=== PATIENT | female | born 1940 | race Caucasian/White ===

== ENCOUNTER 2023-08-28 19:40 | Outpatient (CLI) | payer MEDICARE, BC, SELFPAY | END 2023-08-28 19:41 | disposition home or self-care (01) | PROVIDERS: PCP Family Medicine; Visit Provider Student in an Organized Health Care Education/Training Program | DX: S79.912A Unspecified injury of left hip, initial encounter (principal); W01.0XXA Fall on same level from slipping, tripping and stumbling without subsequent striking against object, initial encounter; Y92.009 Unspecified place in unspecified non-institutional (private) residence as the place of occurrence of the external cause | CPT/HCPCS: A0425; A0427; A0428 ==

== ENCOUNTER 2023-08-28 20:27 | Emergency (ER) | payer MEDICARE, BC, SELFPAY ==
[2023-08-28] VITALS (16 sets, daily range): BP systolic 142–170; BP diastolic 79–84; PULSE 71–88; RESP 16; TEMP 36.4; O2SAT 88–96; BMI 27.3
--- NOTE | 2023-08-28 20:35 | ED_ITS ---
HPI - General Adult General Chief complaint: Extremity Pain/Injury, Lower Stated complaint: fall Time Seen by Provider: 08/28/23 20:29 History of Present Illness HPI narrative: 83-year-old female coming in today after sustaining a fall. Patient states that she slipped on a puppy pad on her floor and fell sideways onto her left hip. She did not hit her head or lose consciousness. She is complaining of left hip pain. She denies arm, chest or abdominal pain. Denies headache or neck pain. Patient does live independently. Patient did sustain a fall in 2018 that resulted in a clavicular fracture as well as a left hip fracture that was surgically repaired at the time. Past medical history significant for diabetes, coronary artery disease, hyperlipidemia, depression and anxiety, hypertension, hypercalcemia, hypo magnesemia, fibromyalgia. Related Data Home Medications Medication Instructions Recorded Confirmed albuterol sulfate 2.5 mg/3 mL 2.5 mg Q4H PRN wheezing 08/28/23 (0.083 %) solution for nebulization amiloride 5 mg tablet 5 mg PO DAILY 08/28/23 08/28/23 azithromycin 250 mg tablet 250 mg PO DIRECTED 08/28/23 08/28/23 clonazepam 0.5 mg tablet 0.75 mg PO QPM 08/28/23 08/28/23 glipizide 2.5 mg tablet, extended 2.5 mg PO DAILY 08/28/23 08/28/23 release 24 hr levetiracetam 250 mg tablet 750 mg PO BID 08/28/23 08/28/23 metoprolol succinate 100 mg 100 mg PO DAILY 08/28/23 08/28/23 tablet,extended release 24 hr nitroglycerin 0.4 mg sublingual mg sublingual 08/28/23 tablet nystatin 100,000 unit/gram topical topical BID PRN 08/28/23 powder (Nystop) omeprazole 20 mg capsule,delayed 20 mg PO BID 08/28/23 08/28/23 release rosuvastatin 20 mg tablet 20 mg PO QPM 08/28/23 08/28/23 sertraline 50 mg tablet 50 mg PO DAILY 08/28/23 08/28/23 Allergies Allergy/AdvReac Type Severity Reaction Status Date / Time codeine Allergy Intermediate Verified 08/28/23 20:37 Penicillins Allergy Intermediate Verified 08/28/23 20:37 Review of Systems Status of ROS: Reports: 6 or more systems reviewed and unremarkable except as noted in History and below [facility] Social History Non-prescribed substance use: denies use Exam Narrative: Exam Narrative: Well-nourished elderly patient in no acute distress. Alert and oriented x3. Answers questions appropriately. Mood and affect are appropriate. Thoughts are goal oriented and rational. No tangential or magical thinking noted. Patient speaks in full sentences without needing to catch her breath. Patient is very upset that someone is going to tell her that she can live independently anymore. HEENT: Normocephalic atraumatic. Pupils are equally round reactive to light. Extraocular muscles are intact. Conjunctivae are moist without any icterus noted. Moist mucous membranes. Cardiovascular: Heart is regular rate and rhythm S1 and S2 are present without any murmurs. Lungs: Clear to auscultation bilaterally no wheezes rhonchi or rales are appreciated. Patient takes deep breaths without any discomfort. Abdomen: Soft and nontender nondistended with normal bowel sounds. Extremities: Patient has tenderness at the left hip. Leg is shortened and rotated. Skin: Well perfused. Const: Vital Signs, click to edit/add: Vital Signs - 24 hr 08/28/23 20:32 08/28/23 20:39 08/28/23 20:45 Temperature 97.5 F L Pulse Rate 77 72 Pulse Rate [Left P ulse Oximeter] 73 Respiratory Rate 16 Blood Pressure [Ri ght Upper Arm] 142/84 H Pulse Oximetry 93 92 92 Oxygen Delivery Me thod Room Air 08/28/23 21:24 08/28/23 21:30 08/28/23 21:34 Temperature Pulse Rate 74 71 77 Pulse Rate [Left P ulse Oximeter] Respiratory Rate Blood Pressure [Ri ght Upper Arm] Pulse Oximetry 88 96 96 Oxygen Delivery Me thod 08/28/23 21:45 Temperature Pulse Rate 74 Pulse Rate [Left P ulse Oximeter] Respiratory Rate Blood Pressure [Ri ght Upper Arm] Pulse Oximetry 94 Oxygen Delivery Me thod Course Course ED Course: Hip x-ray shows a periprosthetic fracture. Did discuss case with our orthopedic surgeon who felt that the patient would be better served at a tertiary care center. I did speak to Dr. Luis Eduardo, ER physician at [facility] [place] for [place]. Vital Signs Vital signs: Initial Vital Signs Temperature 97.5 F L 08/28/23 20:32 Temperature Source Temporal Artery Scan 08/28/23 20:32 Pulse Rate 73 08/28/23 20:32 Pulse Rhythm Regular 08/28/23 20:32 Respiratory Rate 16 08/28/23 20:32 Blood Pressure 142/84 H 08/28/23 20:32 Blood Pressure Mean 103 08/28/23 20:32 Blood Pressure Position Semi-Fowlers 08/28/23 20:32 Pulse Oximetry 93 08/28/23 20:32 Oxygen Delivery Method Room Air 08/28/23 20:32 Vital Signs Temperature 97.5 F L 08/28/23 20:32 Pulse Rate 73 08/28/23 20:32 Respiratory Rate 16 08/28/23 20:32 Blood Pressure 142/84 H 08/28/23 20:32 Pulse Oximetry 93 08/28/23 20:32 Oxygen Delivery Method Room Air 08/28/23 20:32 Temperature 97.5 F L 08/28/23 20:32 Pulse Rate 74 08/28/23 21:45 Respiratory Rate 16 08/28/23 20:32 Blood Pressure 142/84 H 08/28/23 20:32 Pulse Oximetry 94 08/28/23 21:45 Oxygen Delivery Method Room Air 08/28/23 20:32 Medications Administered Medications: Discontinued Medications Generic Name Dose Route Start Last Admin Trade Name Freq PRN Reason Stop Dose Admin Clonazepam 0.75 mg 08/28/23 21:04 08/28/23 21:33 Clonazepam 0.5 Mg Tablet PO 08/28/23 21:05 0.75 mg ONCE ONE Administration Ondansetron HCl 4 mg 08/28/23 20:54 08/28/23 20:58 Ondansetron 2 Mg/Ml Inj IVP 08/28/23 20:55 4 mg ONCE ONE Administration Medical Decision Making MDM Narrative Medical decision making narrative: 83-year-old female with a periprosthetic hip fracture. Patient will be transferred to [facility] [place]. Medical Records Medical records reviewed: Yes I reviewed the patient's medical records Imaging Data Hip x-ray: Attestation: I have reviewed the pertinent imaging results. Radiologist's impression: Technique: AP pelvis and two views of the left hip Comparison: Hip radiograph dated 03/03/2018 Findings: Left hip arthroplasty noted. There is a periprosthetic fracture extending from the intertrochanteric region to the proximal diaphysis. Femoroacetabular cup alignment appears maintained. Soft tissue swelling. Impression: Left hip periprosthetic fracture. Chest x-ray: Attestation: I have reviewed the pertinent imaging results. Radiologist's impression: Comparison: Chest radiograph dated 01/21/2018 Findings: No gross consolidation. No pneumothorax. No effusion. Cardiac silhouette appears unchanged. No acute osseous abnormality appreciated. Impression: No acute cardiopulmonary process detected. Discharge Plan Discharge Clinical Impression: Bridget-prosthetic fracture around prosthetic hip Patient Disposition: Xfer Other [place] [facility] [place] [facility] [place] Condition: Stable Prescriptions: No Action albuterol sulfate 2.5 mg /3 mL (0.083 %) solution for nebulization 2.5 mg Q4H PRN (Reason: wheezing) azithromycin 250 mg tablet 250 mg PO DIRECTED clonazepam 0.5 mg tablet 0.75 mg PO QPM metoprolol succinate 100 mg tablet extended release 24 hr 100 mg PO DAILY amiloride 5 mg tablet 5 mg PO DAILY levetiracetam 250 mg tablet 750 mg PO BID glipizide 2.5 mg tablet extended release 24hr 2.5 mg PO DAILY nitroglycerin 0.4 mg tablet, sublingual sublingual omeprazole 20 mg capsule,delayed release(DR/EC) 20 mg PO BID nystatin [Nystop] 100,000 unit/gram powder topical BID PRN sertraline 50 mg tablet 50 mg PO DAILY rosuvastatin 20 mg tablet 20 mg PO QPM Follow Up/Referrals: Vikki Cope MD [Primary Care Provider] - [facility] Instructions
--- NOTE | 2023-08-28 20:40 | CRLHL7_ITS ---
For Patients: As a result of the Century Cures Act, medical imaging exams and procedure reports are released immediately into your electronic medical record. You may view this report before your referring provider. If you have questions, please contact your health care provider. Indication: Fall Technique: AP pelvis and two views of the left hip Comparison: Hip radiograph dated 03/03/2018 Findings: Left hip arthroplasty noted. There is a periprosthetic fracture extending from the intertrochanteric region to the proximal diaphysis. Femoroacetabular cup alignment appears maintained. Soft tissue swelling. Impression: Left hip periprosthetic fracture. Dictated by Luis Izquierdo MD @ 08/28/2023 9:57:53 PM (Electronically Signed)
--- NOTE | 2023-08-28 20:47 | CRLHL7_ITS ---
For Patients: As a result of the Century Cures Act, medical imaging exams and procedure reports are released immediately into your electronic medical record. You may view this report before your referring provider. If you have questions, please contact your health care provider. Indication: Fall Technique: Single view of the chest Comparison: Chest radiograph dated 01/21/2018 Findings: No gross consolidation. No pneumothorax. No effusion. Cardiac silhouette appears unchanged. No acute osseous abnormality appreciated. Impression: No acute cardiopulmonary process detected. Dictated by Luis Izquierdo MD @ 08/28/2023 9:56:46 PM (Electronically Signed)
[2023-08-28] MEDS: ONDANSETRON 2 MG/ML inj 4 MG IVP (20:58)
[2023-08-28] MEDS: clonazePAM 0.5 MG TABLET 0.75 MG PO (21:33)
--- NOTE | 2023-08-28 21:43 | ED.NURSE ---
[facility] [place] called for transfer, they have accepted the patient. [facility] called for transfer and they are unable to accept the patient.
--- NOTE | 2023-08-28 22:16 | ED.NURSE ---
[facility] [place] accepted patient in ED. Dispatch called at [phone]. Transport crew should be here within the hour, hour and a half.
--- NOTE | 2023-08-28 22:42 | ED.NURSE ---
Nurse to nurse patient report given to Jaja VÁSQUEZ at [facility] [place]. [phone]
[2023-08-28] MEDS: ACETAMINOPHEN 500 MG TABLET 1000 MG PO (23:20)
--- NOTE | 2023-08-28 23:36 | ED.NURSE ---
patient report given to EMS. Patients brief changed prior to transport.
== END 2023-08-28 23:38 | disposition other institution (70) ==
PROVIDERS: Emergency Provider Family Medicine; PCP Family Medicine
DX: M97.02XA Periprosthetic fracture around internal prosthetic left hip joint, initial encounter (principal)
CPT/HCPCS: 71045; 73502; 96374; 99284; 99285; A9270; J2405

== ENCOUNTER 2023-08-28 23:20 | Outpatient (CLI) | payer MEDICARE, BC, SELFPAY | END 2023-08-28 23:21 | disposition home or self-care (01) | PROVIDERS: PCP Family Medicine; Visit Provider Family Medicine | DX: S72.002S Fracture of unspecified part of neck of left femur, sequela (principal) | CPT/HCPCS: A0425; A0427; A0428 ==

== ENCOUNTER 2023-11-08 12:47 | Outpatient (CLI) | payer MEDICARE, BC, SELFPAY ==
--- NOTE | 2023-11-08 | XR_ITS ---
Patient: ANDREAS GRAYSON Facility:?[facility] Patient ID:?[id number] Site Patient ID:?[id number]. Site :?[id number] Study:?XRay-Hip Left 2 VIEW-11/08/2023 1:43:57 PM Ordering Physician:PETRA Final Report: INDICATION: Left hip fracture. TECHNIQUE: AP pelvis and 2 views of the left hip. FINDINGS: Left hip hemiarthroplasty with cerclage wires along the proximal femoral shaft. Hardware appears intact. Increased callus around the proximal femur fracture since 10/14/2023. No change in alignment. Dictated by Eh Tapia MD @ 11/09/2023 9:42:03 AM Signed by:?Eh Tapia MD @11/09/2023 9:42:03 AM (Electronic Signature)
== END 2023-11-08 12:48 | disposition home or self-care (01) ==
PROVIDERS: PCP Family Medicine; Visit Provider Orthopaedic Surgery
DX: S72.002A Fracture of unspecified part of neck of left femur, initial encounter for closed fracture (principal)
CPT/HCPCS: 73502

== ENCOUNTER 2024-05-14 15:31 | Inpatient (IN) | payer MEDICARE, BC, SELFPAY ==
[2024-05-14] VITALS (38 sets, daily range): BP systolic 79–145; BP diastolic 43–99; PULSE 77–108; RESP 20–22; TEMP 36.8–37.8; O2SAT 83–100; BMI 23.7; BMI 26.2
--- NOTE | 2024-05-14 15:58 | ED_ITS ---
HPI - Nausea/Vomiting/Diarrhea General Time Seen by Provider: 15:58 Date Seen: 05/14/24 Chief complaint: Nausea/Vomiting Stated complaint: vomiting Time Seen by Provider: 05/14/24 15:43 Source: patient and RN notes reviewed Mode of arrival: ambulatory Limitations: no limitations History of Present Illness HPI Narrative: This 83-year-old female is brought in accompanied by family with concern of fever and nausea and vomiting. This 83-year-old female is living in a condo with family members, is transitioning to an assisted living called [facility] in [place]. She was there today doing a virtual mass, had a rule, family received a phone call later that the patient was vomiting at lunch. She went from 99 to a 101 fever which prompted them to bring her in. She maybe had a little stomach discomfort before vomiting but denies any abdominal pain. She got her COVID shot 6 days ago on Wednesday, had a couple days of diarrhea after that but resolved. She got significant bruising in her arm from the COVID shot, had some dependent change going into the outer lateral breast, denies any trauma to the breast. They note she has a dry chronic cough, unchanged. In August she did have a fall and required open reduction internal fixation of her hip. This happened at [facility] and on and it was somewhat of a traumatic experience for her per report. 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 She notes that she had electrolytes done this week in clinic but they have no idea what they are, [place] moved there labs to [facility] and she still has not heard back yet. elicited complaint: nausea and vomiting Related Data Home Medications ?Medication ?Instructions ?Recorded ?Confirmed albuterol sulfate 2.5 mg/3 mL 2.5 mg inhalation Q4H PRN wheezing 08/28/23 05/14/24 (0.083 %) solution for nebulization amiloride 5 mg tablet 5 mg PO DAILY 08/28/23 05/14/24 clonazepam 0.5 mg tablet 0.75 mg PO QPM 08/28/23 05/14/24 glipizide 2.5 mg tablet, extended 2.5 mg PO DAILY 08/28/23 05/14/24 release 24 hr levetiracetam 250 mg tablet 750 mg PO BID 08/28/23 05/14/24 metoprolol succinate 100 mg 100 mg PO DAILY 08/28/23 05/14/24 tablet,extended release 24 hr nitroglycerin 0.4 mg sublingual 0.4 mg sublingual Q5M PRN 08/28/23 05/14/24 tablet nystatin 100,000 unit/gram topical 1 applic topical BID PRN 08/28/23 05/14/24 powder (Nystop) omeprazole 20 mg capsule,delayed 20 mg PO BID 08/28/23 05/14/24 release rosuvastatin 20 mg tablet 20 mg PO QPM 08/28/23 05/14/24 sertraline 150 mg capsule 150 mg PO QDAY 03/15/24 05/14/24 lidocaine 5 % topical patch 1 patch topical DAILY 05/14/24 05/14/24 mirabegron 25 mg tablet,extended 25 mg PO DAILY 05/14/24 05/14/24 release 24 hr (Myrbetriq) Allergies Allergy/AdvReac Type Severity Reaction Status Date / Time codeine Allergy Intermediate Verified 03/15/24 10:59 Penicillins Allergy Intermediate Verified 03/15/24 10:59 Review of Systems Status of ROS: Reports: 6 or more systems reviewed and unremarkable except as noted in History and below [facility] Medical History Muscle weakness ?M62.81 - Muscle weakness (generalized) (ICD-10) Fracture of clavicle ?S42.009A - Fracture of unspecified part of unspecified clavicle, initial encounter for closed fracture (ICD-10) Counseling regarding advanced directives (08/15/16) ?Z71.89 - Other specified counseling (ICD-10) Acute delirium ?R41.0 - Disorientation, unspecified (ICD-10) Acute confusion ?R41.0 - Disorientation, unspecified (ICD-10) Leukocytosis ?D72.829 - Elevated white blood cell count, unspecified (ICD-10) Seizure ?R56.9 - Unspecified convulsions (ICD-10) 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 - Hypomagnesemia (ICD-10) ?E87.6 - Hypokalemia (ICD-10) Hypertension ?I10 - Essential (primary) hypertension (ICD-10) 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 ?I25.810 - Atherosclerosis of coronary artery bypass graft(s) without angina pectoris (ICD-10) Type 2 diabetes mellitus ?E11.9 - Type 2 diabetes mellitus without complications (ICD-10) Closed fracture of left hip (08/29/23) ?S72.002A - Fracture of unspecified part of neck of left femur, initial encounter for closed fracture (ICD-10) Surgical History History of open reduction and internal fixation (ORIF) procedure (08/31/23) ?Z98.890 - Other specified postprocedural states (ICD-10) 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) ?Z96.642 - Presence of left artificial hip joint (ICD-10) Social History Smoking Status: Never smoker Do you use any of these nicotine containing products: None Second hand tobacco smoke exposure: No How often do you have a drink containing alcohol: never How often do you have six or more drinks on one occasion: Never AUDIT-C Alcohol total score: 0 Non-prescribed substance use: denies use Exam Const: Vital Signs, click to edit/add: Vital Signs - 24 hr 05/14/24 15:42 05/14/24 15:54 05/14/24 16:00 Temperature 100.1 F H Pulse Rate 108 H 108 H Pulse Rate [Pulse Oximeter] 103 H Respiratory Rate 20 Blood Pressure Blood Pressure [Ri ght Upper Arm] 145/99 H Pulse Oximetry 90 93 93 Oxygen Delivery Me thod Room Air Nasal Cannula Oxygen Flow Rate 2 05/14/24 16:15 05/14/24 16:30 05/14/24 16:45 Temperature Pulse Rate 108 H 103 H 104 H Pulse Rate [Pulse Oximeter] Respiratory Rate Blood Pressure Blood Pressure [Ri ght Upper Arm] Pulse Oximetry 94 93 95 Oxygen Delivery Me thod Oxygen Flow Rate 05/14/24 17:00 05/14/24 17:15 05/14/24 17:49 Temperature Pulse Rate 103 H 106 H 99 Pulse Rate [Pulse Oximeter] Respiratory Rate Blood Pressure Blood Pressure [Ri ght Upper Arm] Pulse Oximetry 94 94 96 Oxygen Delivery Me thod Oxygen Flow Rate 05/14/24 17:50 05/14/24 18:02 05/14/24 18:17 Temperature Pulse Rate 98 Pulse Rate [Pulse Oximeter] Respiratory Rate Blood Pressure 117/63 117/63 98/58 L Blood Pressure [Ri ght Upper Arm] Pulse Oximetry 96 Oxygen Delivery Me thod Oxygen Flow Rate 05/14/24 18:28 05/14/24 18:30 05/14/24 18:32 Temperature Pulse Rate 108 H 95 102 H Pulse Rate [Pulse Oximeter] Respiratory Rate Blood Pressure 105/55 L Blood Pressure [Ri ght Upper Arm] Pulse Oximetry 94 94 96 Oxygen Delivery Me thod Nasal Cannula Oxygen Flow Rate 2 05/14/24 18:33 05/14/24 18:45 05/14/24 18:47 Temperature Pulse Rate 98 93 94 Pulse Rate [Pulse Oximeter] Respiratory Rate Blood Pressure 87/44 L Blood Pressure [Ri ght Upper Arm] Pulse Oximetry 95 94 94 Oxygen Delivery Me thod Oxygen Flow Rate 05/14/24 18:49 05/14/24 18:51 05/14/24 19:02 Temperature Pulse Rate 95 96 Pulse Rate [Pulse Oximeter] Respiratory Rate Blood Pressure 79/52 L 85/52 L 87/51 L Blood Pressure [Ri ght Upper Arm] Pulse Oximetry 95 95 Oxygen Delivery Me thod Oxygen Flow Rate 05/14/24 19:04 05/14/24 19:15 05/14/24 19:19 Temperature Pulse Rate 95 91 95 Pulse Rate [Pulse Oximeter] Respiratory Rate Blood Pressure Blood Pressure [Ri ght Upper Arm] Pulse Oximetry 83 L 92 94 Oxygen Delivery Me thod Oxygen Flow Rate 05/14/24 19:30 05/14/24 19:40 05/14/24 19:45 Temperature Pulse Rate 96 92 90 Pulse Rate [Pulse Oximeter] Respiratory Rate Blood Pressure 94/44 L Blood Pressure [Ri ght Upper Arm] Pulse Oximetry 93 95 93 Oxygen Delivery Me thod Oxygen Flow Rate 05/14/24 19:47 05/14/24 19:52 05/14/24 19:52 Temperature Pulse Rate 89 86 86 Pulse Rate [Pulse Oximeter] Respiratory Rate Blood Pressure 92/44 L 92/43 L 92/43 L Blood Pressure [Ri ght Upper Arm] Pulse Oximetry 94 92 92 Oxygen Delivery Me thod Oxygen Flow Rate 05/14/24 19:53 05/14/24 20:00 05/14/24 20:02 Temperature Pulse Rate 88 83 85 Pulse Rate [Pulse Oximeter] Respiratory Rate Blood Pressure 92/45 L Blood Pressure [Ri ght Upper Arm] Pulse Oximetry 94 94 93 Oxygen Delivery Me thod Oxygen Flow Rate 05/14/24 20:15 05/14/24 20:17 Temperature Pulse Rate 82 83 Pulse Rate [Pulse Oximeter] Respiratory Rate Blood Pressure 92/47 L Blood Pressure [Ri ght Upper Arm] Pulse Oximetry 93 92 Oxygen Delivery Me thod Oxygen Flow Rate This 83-year-old female is alert, interactive, no apparent distress, seen in exam room 5. Conjugate gaze, sclera clear. Symmetrical facial function. She does not have some of her teeth, oral mucosa looks somewhat dry but lips do not look core drier cracked. Neck is supple, no masses or adenopathy. She has some kyphosis but lungs are clear, no tachypnea, no wheezing or crackles. CV regular rate in rhythm, no murmur, normal S1-S2, no S3-S4. Abdomen is soft, nontender, nondistended, no organomegaly or masses. She has no pretibial edema. She has some resolving yellowish to purplish ecchymosis in the left biceps area, seems to track down along the left anterolateral chest wall and along the left breast. There is no erythema, no significant tenderness. She is mobilizing her arms, does not seem to have any problems with movement in her upper extremities. Documenting provider has reviewed patient's vital signs: yes Course Course ED Course: The bruising in the arm and left chest wall in breast are probably some dependent changes from trauma from her vaccination from COVID. She really does not seem to have any tenderness. The fever with the nausea vomiting certainly seems to be infectious. Viral triple swab is pending. It could be pneumonia, could be gastrointestinal but she has no abdominal pain with this. Do not feel we need to do any abdominal imaging at this time, will await labs. Consider urinary source of infection as well. We will get a portable chest x-ray. May need to do advanced imaging based on laboratory workup. We are still in the shortage blood cultures and thus blood culture was not drawn she is not meeting criteria right now, this needs to be reconsidered with changes in status or if there significant concerns on her workup. Will give her 500 mL normal saline 4 mg IV Zofran for her symptoms. Will also need to check her electrolytes including magnesium given her disorder. Reevaluation(s) Time of Reevaluation #1: 17:07 Reevaluation #1: Have went to review with patient that I have ordered chest CT with abdomen pelv is with IV contrast. Her white count is significantly elevated in with fever I am concerned about the source of her infection. She states she does not want dye done. Her daughter had an allergic reaction and had an NSTEMI during a stress echo. Reviewed with her that that is definity for stress echo. It is a different agent as far as I am aware. This patient also talks about how her of brain cancer in his 40s, had CT scans all the time. She keeps bringing up her experience at [facility], states that she does not want significant interventions. Reviewed with her that I really do recommend this CT imaging with contrast, it gives us much better pictures, I am able to see much better inflammatory change in the abdomen. It is possible that we can do the CT of the chest without just to look for pneumonia and can reimage abdomen and pelvis if we need to, could discuss doing IV contrast with that if we do not have a source. I have asked her to work on getting us urinalysis in the meantime as well. While I was talking to her, her troponin I came back elevated at 0.23, her kidney function is not causative for elevated troponin. Will have nursing staff get an EKG as this was not ordered. Have discussed with patient and her daughter that she is ill, her heart is obviously under strain from current illness, likely illness induced ischemia. She states she does not want si gnificant measures done. She wonders why can just give her an antibiotic. I discussed with her that they are very different antibiotics that treat much different things. Does she have a pneumonia, does she have a urinary tract infection, could this be an intra-abdominal process that might be developing into something surgical? All of these require different antibiotics, which 1 do I give her. I discussed that a need to do further workup to be able to direct antibiotic therapy. If she does not want any of this done, she does not have to, we can work on hospice arrangements for her through her clinic, I cannot initiate that here. She did not seem to want to moved to hospice either. She states she does not want to stay in the hospital, starts talking about the difficulties of the [facility] situation again. Reviewed with her that she is ill, I do not feel that her daughter will be able to care for her and she is likely to get sicker in my opinion. Time of Reevaluation #2: 18:59 Reevaluation #2: Nursing staff notified me that the patient has become hypotensive, was just coming out of another patient room. She is receiving her 2nd 500 mL bolus. Ordered a 2nd it L of normal saline, 2 g of IV cefepime due to penicillin allergy, [address] imaging is in the process of being read, still do not have a focus of infectious etiology. Urine does not look to be the source based on urinalysis. Patient is also develops mild hypoxia during this hospitalization, 88-89% in oxygen was applied. Time of Reevaluation #3: 19:43 Reevaluation #3: Have had extensive discussion with patient and her daughter. She unfortunately has a significant infection with sepsis now. They have had difficulty getting access to get the blood culture, follow-up troponin and lactate. Patient has become hypotensive, she has had her 2 L of fluids ordered, cefepime is ordered due to her penicillin allergy. With cholecystitis diagnosis, need to review further antibiotics. I have reviewed with them that standard of care would be cholecystostomy to until the infection is controlled. We have also reviewed that her troponin is elevated, she is having no chest pain, would go with probable demand ischemia with sepsis. She is not a surgical candidate for us here, no but he will be taking her gallbladder out in this current medical situation. She is adamant that she does not want a cholecystostomy tube. She does not want transfer even if it means the end of her life. She would like to try antibiotics understanding that this is maybe only going to be a temporary improvement. She agrees that if she has worsening overnight and antibiotics are not working, that she will switch to comfort cares. She does not want intubation, she does not want chest compressions. Her daughter has power of contract attorney and is in agreement with this plan. Patient is asking if we can put her in the hospital here, reviewed with her that I certainly will talk to our hospitalist. Consultations Consultation #1: Have contacted our general surgeon on-call Dr. Balbuena. Have reviewed the challenges with this patient, that this patient is likely not going to want transfer. She states that this is unreasonable, if patient wants anything done the standard of care is cholecystostomy tube, get underlying infection under control. She recommends discussing this with the patient and attempting to reason with the patient for transfer, otherwise if patient does not want interventions, really is a terminal or comfort care type picture. Time: 19:16 Consultation #2: Did contact our hospitalist Dr. Valentine. Reviewed patient's request to stay here and not transfer. We went over her labs, the course, her history. Have added in Flagyl for other the anaerobic coverage with her cefepime. I do not know if this patient would entertain pressors, last blood pressure when I was in with her was systolic of 90s so there was some improvement. Nursing staff did finally get a 2nd IV. Her follow-up lactate came back normal, awaiting the troponin I follow-up reading, blood culture did get drawn. Antibiotic should be initiated soon. Patient is 60 kilos, is receiving 2000 mL of fluid plus what she will get with antibiotics. Time: 19:43 Vital Signs Vital signs: Initial Vital Signs Temperature 100.1 F H 05/14/24 15:42 Temperature Source Temporal Artery Scan 05/14/24 15:42 Pulse Rate 103 H 05/14/24 15:42 Pulse Rhythm Regular 05/14/24 15:42 Respiratory Rate 20 05/14/24 15:42 Blood Pressure 145/99 H 05/14/24 15:42 Blood Pressure Mean 114 H 05/14/24 15:42 Blood Pressure Position Sitting 05/14/24 15:42 Pulse Oximetry 90 05/14/24 15:42 Oxygen Delivery Method Room Air 05/14/24 15:42 Vital Signs Temperature 100.1 F H 05/14/24 15:42 Pulse Rate 103 H 05/14/24 15:42 Respiratory Rate 20 05/14/24 15:42 Blood Pressure 145/99 H 05/14/24 15:42 Pulse Oximetry 90 05/14/24 15:42 Oxygen Delivery Method Room Air 05/14/24 15:42 Temperature 98.3 F 05/14/24 20:34 Pulse Rate 83 05/14/24 20:17 Respiratory Rate 20 05/14/24 15:42 Blood Pressure 92/47 L 05/14/24 20:17 Pulse Oximetry 92 05/14/24 20:17 Oxygen Delivery Method Nasal Cannula 05/14/24 18:32 Oxygen Flow Rate 2 05/14/24 18:32 Medications Administered Medications: Discontinued Medications Generic Name Dose Route Start Last Admin Trade Name Melissa PRN Reason Stop Dose Admin Acetaminophen 1,000 mg 05/14/24 16:54 05/14/24 17:51 Acetaminophen 500 Mg Tablet PO 05/14/24 16:55 1,000 mg ONCE ONE Administration Sodium Chloride 500 mls @ 500 mls/hr 05/14/24 16:07 05/14/24 17:33 0.9 % Sodium Chloride 500 Ml IV 05/14/24 17:06 Infused .Q1H ONE Infusion Sodium Chloride 500 mls @ 500 mls/hr 05/14/24 17:27 05/14/24 17:51 0.9 % Sodium Chloride 500 Ml IV 05/14/24 18:26 500 mls/hr .Q1H ONE Administration Sodium Chloride 1,000 mls @ 1,000 mls/hr 05/14/24 18:58 05/14/24 19:56 0.9 % Sodium Chloride 1000 Ml IV 05/14/24 19:57 1,000 mls/hr .Q1H MERLYN Administration Cefepime HCl 2 gm/ Sodium 100 mls @ 200 mls/hr 05/14/24 18:58 05/14/24 19:56 Chloride IVPB 05/14/24 18:59 200 mls/hr ONCE ONE Administration Metronidazole 500 mg in 100 mls @ 100 mls/hr 05/14/24 19:41 05/14/24 20:34 Metronidazole IVPB 05/14/24 20:40 100 mls/hr ONCE ONE Administration Ondansetron HCl 4 mg 05/14/24 16:07 05/14/24 16:31 Ondansetron 2 Mg/Ml Inj IVP 05/14/24 16:08 4 mg ONCE ONE Administration MDM - Nausea/Vomiting/Diarrhea Lab Data Attestation: I reviewed the patient's lab results. Labs: Lab Results 05/14/24 05/14/24 05/14/24 Range/Units 15:40 16: 18:25 WBC 19.61 H (4.50-11.00) K/uL RBC 3.93 L (4.00-5.20) m/uL Hgb 12.4 (12.0-16.0) gm/dL Hct 37.3 (33.0-51.0) % MCV 95 (80-100) fL MCH 32 (26-34) pg MCHC 33 (32-36) gm/dL RDW Coeff of Gilbert 11.9 (11.5-15.5) % Plt Count 206 (140-440) K/uL Neut % (Auto) 92.5 H (42.0-72.0) % Lymph % (Auto) 1.4 L (20-44) % Robeson % (Auto) 5.4 (0.0-11.0) % Eos % (Auto) 0.0 (0.0-7.0) % Baso % (Auto) 0.1 (0.0-3.0) % Neut # (Auto) 18.10 H (1.7-7.0) K/uL Lymph # (Auto) 0.30 L (0.90-2.90) K/uL Robeson # (Auto) 1.10 H (0.00-0.90) K/UL Eos # (Auto) 0.00 (0.00-0.50) K/uL Baso # (Auto) 0.00 (0.00-0.30) K/uL Abs Immat Gran (auto) 0.10 (0.00-0.30) K/uL Imm/Tot Granulo (auto) 0.6 % Sodium 132 L (135-149) mmol/L Potassium 4.3 (3.6-5.1) mmol/L Chloride 98 (96-114) mmol/L Carbon Dioxide 26 (20-32) mmol/L Anion Gap 8 (7-15) mEq/L BUN 19 (7-30) mg/dL Creatinine 0.9 (0.5-1.5) mg/dL Estimated Creat Clear 35.26 Estimated GFR 63 ml/min Glucose 246 H (60-115) mg/dL Lactate 0.9 (0.5-1.9) mmol/L Calcium 10.1 (8.4-10.6) mg/dL Magnesium 1.6 (1.5-2.6) mg/dL Total Bilirubin 0.5 (0.1-1.5) mg/dL AST 28 (12-35) U/L ALT 20 (4-35) U/L Alkaline Phosphatase 76 (40-150) U/L Troponin I 0.23 H* (0.01-0.04) ng/mL C-Reactive Protein 3.0 H (0.5-1.0) mg/dL Total Protein 7.5 (6.0-8.3) g/dL Albumin 4.5 (3.3-5.0) g/dL Lipase 59 (23-300) U/L Procalcitonin 0.83 H (<0.50) ng/mL Urine Color Yellow (Yellow) Urine Appearance Clear (Clear) Urine pH 7.5 (5.0-8.5) Ur Specific Sproul 1.020 (1.000-1.030) Urine Protein 2+ A (Negative) Urine Glucose (UA) Negative (Negative) Urine Ketones 1+ A (Negative) Urine Blood Negative (Negative) Urine Nitrite Negative (Negative) Urine Bilirubin Negative (Negative) Urine Urobilinogen 0.2 (0.2-1.0) Ur Leukocyte Esterase Negative (Negative) Urine RBC 0-2 (0-2) Urine WBC 0-2 (0-5) Ur Squamous Epith Cells None (None-Few) Urine Bacteria None (None) SARS-CoV-2 (PCR) Negative SARS-CoV-2 (Negative) Influenza Type A (PCR) Negative PCR FLU A (Negative) Influenza Type B (PCR) Negative PCR FLU B (Negative) RSV (PCR) Negative PCR RSV (Negative) 05/14/24 Range/Units 19:41 WBC (4.50-11.00) K/uL RBC (4.00-5.20) m/uL Hgb (12.0-16.0) gm/dL Hct (33.0-51.0) % MCV (80-100) fL MCH (26-34) pg MCHC (32-36) gm/dL RDW Coeff of Gilbert (11.5-15.5) % Plt Count (140-440) K/uL Neut % (Auto) (42.0-72.0) % Lymph % (Auto) (20-44) % Robeson % (Auto) (0.0-11.0) % Eos % (Auto) (0.0-7.0) % Baso % (Auto) (0.0-3.0) % Neut # (Auto) (1.7-7.0) K/uL Lymph # (Auto) (0.90-2.90) K/uL Robeson # (Auto) (0.00-0.90) K/UL Eos # (Auto) (0.00-0.50) K/uL Baso # (Auto) (0.00-0.30) K/uL Abs Immat Gran (auto) (0.00-0.30) K/uL Imm/Tot Granulo (auto) % Sodium (135-149) mmol/L Potassium (3.6-5.1) mmol/L Chloride (96-114) mmol/L Carbon Dioxide (20-32) mmol/L Anion Gap (7-15) mEq/L BUN (7-30) mg/dL Creatinine (0.5-1.5) mg/dL Estimated Creat Clear Estimated GFR ml/min Glucose (60-115) mg/dL Lactate 0.8 (0.5-1.9) mmol/L Calcium (8.4-10.6) mg/dL Magnesium (1.5-2.6) mg/dL Total Bilirubin (0.1-1.5) mg/dL AST (12-35) U/L ALT (4-35) U/L Alkaline Phosphatase (40-150) U/L Troponin I 0.48 H* (0.01-0.04) ng/mL C-Reactive Protein (0.5-1.0) mg/dL Total Protein (6.0-8.3) g/dL Albumin (3.3-5.0) g/dL Lipase (23-300) U/L Procalcitonin (<0.50) ng/mL Urine Color (Yellow) Urine Appearance (Clear) Urine pH (5.0-8.5) Ur Specific Sproul (1.000-1.030) Urine Protein (Negative) Urine Glucose (UA) (Negative) Urine Ketones (Negative) Urine Blood (Negative) Urine Nitrite (Negative) Urine Bilirubin (Negative) Urine Urobilinogen (0.2-1.0) Ur Leukocyte Esterase (Negative) Urine RBC (0-2) Urine WBC (0-5) Ur Squamous Epith Cells (None-Few) Urine Bacteria (None) SARS-CoV-2 (PCR) (Negative) Influenza Type A (PCR) (Negative) Influenza Type B (PCR) (Negative) RSV (PCR) (Negative) Imaging Data Chest x-ray: Attestation: I have reviewed the pertinent imaging results. Radiologist's impression: Patient: [facility] Facility:?[facility] Patient ID:?[id number] Site Patient ID:?[id number]. Site :?[id number] Study:?XRay-Chest Portable-05/14/2024 4:28:41 PM Ordering Physician:?Asia Lynch Final Report: Indication: Fever. Technique: Chest 1 view. Comparison: Chest radiographs dated 09/05/2023. Findings/Impression: Cardiovascular and mediastinum: Heart size and vasculature are unchanged in caliber and appearance. Lungs and pleural space: Low lung volumes with diffuse interstitial prominence, which may be artifactual though mild pulmonary edema or infection could have a similar appearance. No sign of pleural effusion. No pneumothorax. Bones and soft tissues: No acute findings. Redemonstrated severe bilateral shoulder arthrosis. Dictated by Glenn Caro MD @ 05/14/2024 5:17:23 PM (Electronic Signature) CT Chest/Ab/Pelvis: Attestation: I have reviewed the pertinent imaging results. Radiologist's impression: Patient: [facility] Facility:?[facility] Patient ID:?[id number] Site Patient ID:?[id number]. Site :?[id number] Study:?CT-Chest/Abd/Pelvis w/ 66cc [id number]/[id number] 5:44:27 PM Ordering Physician:?Asia Lynch Final Report: INDICATION: FEVER, UNKNOWN SOURCE, N/V, ELEVATED WHITE COUNT. TECHNIQUE: CT chest, abdomen and pelvis acquired 66 cc Isovue 370 IV contrast. COMPARISON: CT chest abdomen pelvis dated 11/19/2013. FINDINGS: CHEST: Cardiovascular structures: Heart size is normal. Thoracic aorta and main pulmonary artery are normal in caliber. Mediastinum and nikole: No mass or adenopathy. Lungs and pleura: Respiratory motion artifact limits fine detail evaluation of the pulmonary parenchyma. Unchanged size of the right upper lobe 7 mm pulmonary nodule (2/36). Mild bibasilar subsegmental atelectasis. Lungs are otherwise essentially clear. No pleural Chest wall and axilla: No mass or adenopathy. Bones: No suspicious bone lesions. Redemonstrated sternotomy wires. Unremarkable for age. ABDOMEN AND PELVIS: Liver: Unremarkable. Gallbladder and bile ducts: Cholelithiasis of acute without discrete evidence cholecystitis. There is = mild dilatation of the intrahepatic and extrahepatic biliary ducts, with the distal common bile duct measuring up to 10 mm in diameter. No evident choledocholithiasis. Pancreas: Unremarkable. Spleen: Unremarkable. Adrenal glands: Unremarkable. Kidneys: Subcentimeter cortical hypodensities are too small to characterize. No hydronephrosis. Evaluation of the distal ureters is limited by artifact from left total hip arthroplasty. GI tract: Unremarkable. Vascular structures: Unremarkable. Lymph nodes: Unremarkable. Peritoneum/Retroperitoneum/Abdominal Wall: Unremarkable. No free air or significant free fluid. Pelvic Organs: Unremarkable. Bones and superficial soft tissues: Moderate to severe multilevel degenerative changes in the thoracolumbar spine. No suspicious bone lesions. Partially visualized left total hip arthroplasty. Associated artifact limits evaluation of surrounding structures. IMPRESSION: 1. There is cholelithiasis with mild intrahepatic and extrahepatic biliary ductal dilatation. There is no discretely visualized choledocholithiasis though evaluation relatively limited by CT. 2. Otherwise, no evident acute abnormality in the chest, abdomen, or pelvis. Please note that all CT scans at this facility use dose modulation, iterative reconstruction, and/or weight-based dosing when appropriate to reduce radiation dose to as low as reasonably achievable. Dictated by Glenn Caro MD @ 05/14/2024 7:01:21 PM (Electronic Signature) ECG Data Attestation: I personally reviewed and interpreted this ECG as follows: (Sinus tachycardia with PAC, rate 106. No ischemic change or infarct noted.) ECG interpretation date: 05/14/24 ECG interpretation time: 17:28 Prior ECG tracings: not available for review Discharge Plan Discharge Clinical Impression: Sepsis, Acute hypotension, Acute cholecystitis, Elevated troponin I level, Hypoxia
--- NOTE | 2024-05-14 16:07 | CRLHL7_ITS ---
For Patients: As a result of the Century Cures Act, medical imaging exams and procedure reports are released immediately into your electronic medical record. You may view this report before your referring provider. If you have questions, please contact your health care provider. Indication: Fever. Technique: Chest 1 view. Comparison: Chest radiographs dated 09/05/2023. Findings/Impression: Cardiovascular and mediastinum: Heart size and vasculature are unchanged in caliber and appearance. Lungs and pleural space: Low lung volumes with diffuse interstitial prominence, which may be artifactual though mild pulmonary edema or infection could have a similar appearance. No sign of pleural effusion. No pneumothorax. Bones and soft tissues: No acute findings. Redemonstrated severe bilateral shoulder arthrosis. Dictated by Glenn Caro MD @ 05/14/2024 5:17:23 PM (Electronically Signed)
[2024-05-14 16:22] LABS: PCR FLU A Negative PCR FLU A (Negative); PCR FLU B Negative PCR FLU B (Negative); PCR RSV Negative PCR RSV (Negative); SARS PCR* Negative SARS-CoV-2 (Negative)
[2024-05-14] MEDS: ONDANSETRON 2 MG/ML inj 4 MG IVP (16:31)
[2024-05-14] MEDS: 0.9 % SODIUM CHLORIDE 500 ML 500 ML IV ×2 (16:32→17:51)
[2024-05-14 16:33] LABS: Lactate* 0.9 mmol/L (0.5-1.9)
[2024-05-14 16:34] LABS: Basophils Percent Auto 0.1 % (0.0-3.0); Hematocrit 37.3 % (33.0-51.0); Hemoglobin* 12.4 gm/dL (12.0-16.0); Immature Granulocytes Pct Auto 0.6 %; Lymphocytes Percent Auto 1.4 % (20-44); Mean Corpuscular HGB Conc 33 gm/dL (32-36); Mean Corpuscular Hemoglobin 32 pg (26-34); Mean Corpuscular Volume 95 fL (80-100); Monocytes Percent Auto 5.4 % (0.0-11.0); Neutrophils Percent Auto 92.5 % (42.0-72.0); Platelet Count* 206 K/uL (140-440); RDW Coefficient of Variation % 11.9 % (11.5-15.5); Red Blood Count 3.93 m/uL (4.00-5.20); White Blood Count* 19.61 K/uL (4.50-11.00)
[2024-05-14 16:35] LABS: Slide Review Reflex No
[2024-05-14 16:49] LABS: Albumin* 4.5 g/dL (3.3-5.0); Chloride* 98 mmol/L (96-114)
[2024-05-14 16:50] LABS: Potassium* 4.3 mmol/L (3.6-5.1); Sodium* 132 mmol/L (135-149)
[2024-05-14 16:52] LABS: Bilirubin Total* 0.5 mg/dL (0.1-1.5); Creatinine* 0.9 mg/dL (0.5-1.5); Est. Creatinine Clearance* 35.26; Estimated Glomerular Filt Rate 63 ml/min
[2024-05-14 16:53] LABS: Alanine Aminotransferase* 20 U/L (4-35); Alkaline Phosphatase* 76 U/L (40-150); Anion Gap 8 mEq/L (7-15); Aspartate Amino Transferase* 28 U/L (12-35); Blood Urea Nitrogen* 19 mg/dL (7-30); Calcium* 10.1 mg/dL (8.4-10.6); Carbon Dioxide* 26 mmol/L (20-32); Glucose* 246 mg/dL (60-115); Lipase* 59 U/L (23-300); Magnesium* 1.6 mg/dL (1.5-2.6); Total Protein* 7.5 g/dL (6.0-8.3)
--- NOTE | 2024-05-14 16:55 | CRLHL7_ITS ---
For Patients: As a result of the Century Cures Act, medical imaging exams and procedure reports are released immediately into your electronic medical record. You may view this report before your referring provider. If you have questions, please contact your health care provider. INDICATION: FEVER, UNKNOWN SOURCE, N/V, ELEVATED WHITE COUNT. TECHNIQUE: CT chest, abdomen and pelvis acquired 66 cc Isovue 370 IV contrast. COMPARISON: CT chest abdomen pelvis dated 11/19/2013. FINDINGS: CHEST: Cardiovascular structures: Heart size is normal. Thoracic aorta and main pulmonary artery are normal in caliber. Mediastinum and nikole: No mass or adenopathy. Lungs and pleura: Respiratory motion artifact limits fine detail evaluation of the pulmonary parenchyma. Unchanged size of the right upper lobe 7 mm pulmonary nodule (2/36). Mild bibasilar subsegmental atelectasis. Lungs are otherwise essentially clear. No pleural Chest wall and axilla: No mass or adenopathy. Bones: No suspicious bone lesions. Redemonstrated sternotomy wires. Unremarkable for age. ABDOMEN AND PELVIS: Liver: Unremarkable. Gallbladder and bile ducts: Cholelithiasis of acute without discrete evidence cholecystitis. There is = mild dilatation of the intrahepatic and extrahepatic biliary ducts, with the distal common bile duct measuring up to 10 mm in diameter. No evident choledocholithiasis. Pancreas: Unremarkable. Spleen: Unremarkable. Adrenal glands: Unremarkable. Kidneys: Subcentimeter cortical hypodensities are too small to characterize. No hydronephrosis. Evaluation of the distal ureters is limited by artifact from left total hip arthroplasty. GI tract: Unremarkable. Vascular structures: Unremarkable. Lymph nodes: Unremarkable. Peritoneum/Retroperitoneum/Abdominal Wall: Unremarkable. No free air or significant free fluid. Pelvic Organs: Unremarkable. Bones and superficial soft tissues: Moderate to severe multilevel degenerative changes in the thoracolumbar spine. No suspicious bone lesions. Partially visualized left total hip arthroplasty. Associated artifact limits evaluation of surrounding structures. IMPRESSION: 1. There is cholelithiasis with mild intrahepatic and extrahepatic biliary ductal dilatation. There is no discretely visualized choledocholithiasis though evaluation relatively limited by CT. 2. Otherwise, no evident acute abnormality in the chest, abdomen, or pelvis. Please note that all CT scans at this facility use dose modulation, iterative reconstruction, and/or weight-based dosing when appropriate to reduce radiation dose to as low as reasonably achievable. Dictated by Glenn Caro MD @ 05/14/2024 7:01:21 PM (Electronically Signed)
[2024-05-14 17:10] LABS: Procalcitonin* 0.83 ng/mL (<0.50)
[2024-05-14 17:16] LABS: Troponin I* 0.23 ng/mL (0.01-0.04)
[2024-05-14] MEDS: ACETAMINOPHEN 500 MG TABLET 1000 MG PO (17:51)
[2024-05-14 18:34] LABS: Appearance Urine Clear (Clear); Bilirubin Urine Negative (Negative); Blood Urine Negative (Negative); Color Urine Yellow (Yellow); Glucose Urine Negative (Negative); Ketones Urine 1+ (Negative); Leukocyte Esterase Urine Negative (Negative); Nitrite Urine Negative (Negative); Protein Urine 2+ (Negative); Urobilinogen Urine 0.2 (0.2-1.0); pH Urine 7.5 (5.0-8.5)
[2024-05-14 18:54] LABS: RBC Urine 0-2 (0-2); WBC Urine 0-2 (0-5)
[2024-05-14 19:44] LABS: Lactate* 0.8 mmol/L (0.5-1.9)
[2024-05-14] MEDS: CEFEPIME HCL 2 GM in 0.9 % SODIUM CHLORIDE Mini-bag 100 ML IVPB (19:56)
[2024-05-14] MEDS: 0.9 % SODIUM CHLORIDE 1000 ml 1,000 ML IV (19:56)
[2024-05-14 20:17] LABS: Troponin I* 0.48 ng/mL (0.01-0.04)
[2024-05-14] MEDS: metroNIDAZOLE 500 MG/100 ML PIGGYBACK 100 MG IVPB (20:34)
--- NOTE | 2024-05-14 20:47 | PM.IMHP1 ---
Hospitalist- H&P: HPI History of Present Illness Time Seen by Provider: 20:20 Date Seen: 05/15/24 Chief complaint: vomiting Narrative: Maisha Israel is a 83 year old female with a history of 4 vessel CABG, diabetes mellitus type 2, Gitelman's syndrome, RA was feeling fine earlier today then became suddenly nauseous and had emesis and fever. Her daughter and son-in-law are currently living with her in her town home. This morning she left to go to [facility] in [place], where she will be transitioning to assisted living soon. Her daughter is working on selling the town home. She was fine when she left, but just after mass she was about to eat lunch when she became nauseous and vomited. Her daughter came in got her in found that she had a fever to about 101 ? F. Jennifer denies any pain, abdominal pain, chest pain, or dyspnea. She got a COVID vaccination about 6 days ago and also had labs drawn for a clinic appointment next week. She has significant bruising from the COVID vaccination which has since evolved with gravity into her left anterior chest, breast, and axilla. She did not have any other trauma to the area. This past August she had a fall which resulted in a hip fracture. She had an ORIF at [facility] which she considered a very traumatic experience and is refusing transfer anywhere today based on that experience. When I 1st walked in the room, Jennifer told me very calmly that she might tonight. She demonstrated understanding that she likely has acute cholecystitis and is having a heart attack and is recommended that she get a cholecystostomy tube. She tells me that she does not want to transfer anywhere and does not want anything invasive. She is okay with a PICC line and pressors if needed, but mostly just wants to be kept comfortable. Her daughter and other family members are very concerned and would like her to agree to transfer, but she is adamant that she does not want to go anywhere or have anything invasive done. Review of Systems Status of ROS: Reports: 10 or more systems reviewed and unremarkable except as noted in History and below [facility] Medical History (Updated 05/15/24 @ 00:28 by Bridgette Valentine MD) Periprosthetic fracture around internal prosthetic left hip joint ?M97.02XA - Periprosthetic fracture around internal prosthetic left hip joint, initial encounter (ICD-10) COPD (chronic obstructive pulmonary disease) ?J44.9 - Chronic obstructive pulmonary disease, unspecified (ICD-10) Stage 3a chronic kidney disease ?N18.31 - Chronic kidney disease, stage 3a (ICD-10) Purple toe syndrome of both feet ?I75.023 - Atheroembolism of bilateral lower extremities (ICD-10) Hyperlipidemia ?E78.5 - Hyperlipidemia, unspecified (ICD-10) Hypophosphatemia ?E83.39 - Other disorders of phosphorus metabolism (ICD-10) High calcium levels ?E83.52 - Hypercalcemia (ICD-10) Anxiety state ?F41.1 - Generalized anxiety disorder (ICD-10) Fibromyalgia muscle pain ?M79.7 - Fibromyalgia (ICD-10) Hypomagnesemia ?E83.42 - Hypomagnesemia (ICD-10) Vitamin D deficiency ?E55.9 - Vitamin D deficiency, unspecified (ICD-10) 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 (ICD-10) Degeneration of lumbar or lumbosacral intervertebral disc ?M51.379 - Other intervertebral disc degeneration, lumbosacral region without mention of lumbar back pain or lower extremity pain (ICD-10) Spinal stenosis, lumbar region without neurogenic claudication ?M48.061 - Spinal stenosis, lumbar region without neurogenic claudication (ICD-10) Major depressive disorder ?F32.9 - Major depressive disorder, single episode, unspecified (ICD-10) Rheumatoid arthritis ?M06.9 - Rheumatoid arthritis, unspecified (ICD-10) Myocardial infarction ?I21.9 - Acute myocardial infarction, unspecified (ICD-10) Muscle weakness ?M62.81 - Muscle weakness (generalized) (ICD-10) Fracture of clavicle ?S42.009A - Fracture of unspecified part of unspecified clavicle, initial encounter for closed fracture (ICD-10) Counseling regarding advanced directives (08/15/16) ?Z71.89 - Other specified counseling (ICD-10) Acute delirium ?R41.0 - Disorientation, unspecified (ICD-10) Acute confusion ?R41.0 - Disorientation, unspecified (ICD-10) Leukocytosis ?D72.829 - Elevated white blood cell count, unspecified (ICD-10) Seizure ?R56.9 - Unspecified convulsions (ICD-10) 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 - Hypomagnesemia (ICD-10) ?E87.6 - Hypokalemia (ICD-10) Hypertension ?I10 - Essential (primary) hypertension (ICD-10) 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 ?I25.810 - Atherosclerosis of coronary artery bypass graft(s) without angina pectoris (ICD-10) Type 2 diabetes mellitus ?E11.9 - Type 2 diabetes mellitus without complications (ICD-10) Closed fracture of left hip (08/29/23) ?S72.002A - Fracture of unspecified part of neck of left femur, initial encounter for closed fracture (ICD-10) Surgical History (Updated 05/14/24 @ 22:11 by Bridgette Valentine MD) H/O: hysterectomy (~1985) ?Z90.710 - Acquired absence of both cervix and uterus (ICD-10) S/P CABG x 4 (~2000) ?Z95.1 - Presence of aortocoronary bypass graft (ICD-10) History of open reduction and internal fixation (ORIF) procedure (08/31/23) ?Z98.890 - Other specified postprocedural states (ICD-10) 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) ?Z96.642 - Presence of left artificial hip joint (ICD-10) Family History (Updated 05/14/24 @ 22:12 by Bridgette Valentine MD) Aunt Diabetes Social History (Updated 05/14/24 @ 22:14 by Bridgette Valentine MD) Narrative: Has been living in a town home. Since coming home from rehab of L hip fracture in the spring, her daughter and son-in-law have been staying with her and getting the house ready to sell. They have plans to move her into [facility] in [place] soon. H/o smoking 60 pack years, quit in 2000. Doesn't drink alcohol. DNR/DNI. What is your current living situation?: I presently have a place to live Problems where you live: no known problems Problems where you live details: NA In the past 12 months, utilities in danger of being shut off: no In past 12 months, lack of transportation kept you from medical appts, meetings, work, or getting things needed for daily living: no In the past 12 mos, have been you worried that your food would run out before you had money to buy more?: never true In the past 12 mos, the food you bought just didn't last and you didn't have money to buy more?: never true Highest level of school completed/degree received: high school graduate Smoking Status: Never smoker Do you use any of these nicotine containing products: None Second hand tobacco smoke exposure: No How often do you have a drink containing alcohol: never How often do you have six or more drinks on one occasion: Never AUDIT-C Alcohol total score: 0 Non-prescribed substance use: denies use Caffeine: Yes How often does anyone, including family, friends and others, physically hurt you: never How often does anyone, including family, friends and others, insult or talk down to you: never How often does anyone, including family, friends and others, threaten you with harm: never How often does anyone, including family, friends and others, scream or curse at you: never service: No Meds Home Medications and Allergies Home Medications ?Medication ?Instructions ?Recorded ?Confirmed ?Type albuterol sulfate 2.5 mg/3 mL 2.5 mg inhalation Q4H PRN wheezing 08/28/23 05/14/24 History (0.083 %) solution for nebulization amiloride 5 mg tablet 5 mg PO DAILY 08/28/23 05/14/24 History clonazepam 0.5 mg tablet 0.75 mg PO QPM 08/28/23 05/14/24 History glipizide 2.5 mg tablet, extended 2.5 mg PO DAILY 08/28/23 05/14/24 History release 24 hr levetiracetam 250 mg tablet 750 mg PO BID 08/28/23 05/14/24 History metoprolol succinate 100 mg 100 mg PO DAILY 08/28/23 05/14/24 History tablet,extended release 24 hr nitroglycerin 0.4 mg sublingual 0.4 mg sublingual Q5M PRN 08/28/23 05/14/24 History tablet nystatin 100,000 unit/gram topical 1 applic topical BID PRN 08/28/23 05/14/24 History powder (Nystop) omeprazole 20 mg capsule,delayed 20 mg PO BID 08/28/23 05/14/24 History release rosuvastatin 20 mg tablet 20 mg PO QPM 08/28/23 05/14/24 History sertraline 150 mg capsule 150 mg PO QDAY 03/15/24 05/14/24 History lidocaine 5 % topical patch 1 patch topical DAILY 05/14/24 05/14/24 History mirabegron 25 mg tablet,extended 25 mg PO DAILY 05/14/24 05/14/24 History release 24 hr (Myrbetriq) Allergies Allergy/AdvReac Type Severity Reaction Status Date / Time codeine Allergy Intermediate Verified 03/15/24 10:59 Penicillins Allergy Intermediate Verified 03/15/24 10:59 Exam Narrative: Exam Narrative: General: No acute distress. Awake alert oriented x3. HEENT: Normocephalic atraumatic, pupils equally round and reactive to light and accommodation. Oropharynx clear. Mucous membranes are dry. No cervical lymphadenopathy, thyromegaly or carotid bruits. No JVD. Cardiovascular: Regular rate and rhythm. No murmurs, gallops, or rubs. Chest: No increased work of breathing. Clear to auscultation bilaterally. No crackles or wheezes. Abdomen: Bowel sounds present. Soft, nondistended, mildly tender in the right upper quadrant, no rebound tenderness or guarding, mildly positive Neal sign. No hepatosplenomegaly or masses. Extremities: 1+ bilateral ankle pitting edema, no cyanosis or clubbing. Skin: No jaundice, no pallor, no rashes. Neuro: Grossly intact. No focal deficits. Const: Vital Signs, click to edit/add: Vital Signs - 24 hr 05/14/24 15:42 05/14/24 15:54 05/14/24 16:00 Temperature 100.1 F H Pulse Rate 108 H 108 H Pulse Rate [Pulse Oximeter] 103 H Respiratory Rate 20 Blood Pressure Blood Pressure [Ri ght Upper Arm] 145/99 H Pulse Oximetry 90 93 93 Oxygen Delivery Me thod Room Air Nasal Cannula Oxygen Flow Rate 2 05/14/24 16:15 05/14/24 16:30 05/14/24 16:45 Temperature Pulse Rate 108 H 103 H 104 H Pulse Rate [Pulse Oximeter] Respiratory Rate Blood Pressure Blood Pressure [Ri ght Upper Arm] Pulse Oximetry 94 93 95 Oxygen Delivery Me thod Oxygen Flow Rate 05/14/24 17:00 05/14/24 17:15 05/14/24 17:49 Temperature Pulse Rate 103 H 106 H 99 Pulse Rate [Pulse Oximeter] Respiratory Rate Blood Pressure Blood Pressure [Ri ght Upper Arm] Pulse Oximetry 94 94 96 Oxygen Delivery Me thod Oxygen Flow Rate 05/14/24 17:50 05/14/24 18:02 05/14/24 18:17 Temperature Pulse Rate 98 Pulse Rate [Pulse Oximeter] Respiratory Rate Blood Pressure 117/63 117/63 98/58 L Blood Pressure [Ri ght Upper Arm] Pulse Oximetry 96 Oxygen Delivery Me thod Oxygen Flow Rate 05/14/24 18:28 05/14/24 18:30 05/14/24 18:32 Temperature Pulse Rate 108 H 95 102 H Pulse Rate [Pulse Oximeter] Respiratory Rate Blood Pressure 105/55 L Blood Pressure [Ri ght Upper Arm] Pulse Oximetry 94 94 96 Oxygen Delivery Me thod Nasal Cannula Oxygen Flow Rate 2 05/14/24 18:33 05/14/24 18:45 05/14/24 18:47 Temperature Pulse Rate 98 93 94 Pulse Rate [Pulse Oximeter] Respiratory Rate Blood Pressure 87/44 L Blood Pressure [Ri ght Upper Arm] Pulse Oximetry 95 94 94 Oxygen Delivery Me thod Oxygen Flow Rate 05/14/24 18:49 05/14/24 18:51 05/14/24 19:02 Temperature Pulse Rate 95 96 Pulse Rate [Pulse Oximeter] Respiratory Rate Blood Pressure 79/52 L 85/52 L 87/51 L Blood Pressure [Ri ght Upper Arm] Pulse Oximetry 95 95 Oxygen Delivery Me thod Oxygen Flow Rate 05/14/24 19:04 05/14/24 19:15 05/14/24 19:19 Temperature Pulse Rate 95 91 95 Pulse Rate [Pulse Oximeter] Respiratory Rate Blood Pressure Blood Pressure [Ri ght Upper Arm] Pulse Oximetry 83 L 92 94 Oxygen Delivery Me thod Oxygen Flow Rate 05/14/24 19:30 05/14/24 19:40 05/14/24 19:45 Temperature Pulse Rate 96 92 90 Pulse Rate [Pulse Oximeter] Respiratory Rate Blood Pressure 94/44 L Blood Pressure [Ri ght Upper Arm] Pulse Oximetry 93 95 93 Oxygen Delivery Me thod Oxygen Flow Rate 05/14/24 19:47 05/14/24 19:52 05/14/24 19:52 Temperature Pulse Rate 89 86 86 Pulse Rate [Pulse Oximeter] Respiratory Rate Blood Pressure 92/44 L 92/43 L 92/43 L Blood Pressure [Ri ght Upper Arm] Pulse Oximetry 94 92 92 Oxygen Delivery Me thod Oxygen Flow Rate 05/14/24 19:53 05/14/24 20:00 05/14/24 20:02 Temperature Pulse Rate 88 83 85 Pulse Rate [Pulse Oximeter] Respiratory Rate Blood Pressure 92/45 L Blood Pressure [Ri ght Upper Arm] Pulse Oximetry 94 94 93 Oxygen Delivery Me thod Oxygen Flow Rate 05/14/24 20:15 05/14/24 20:17 05/14/24 20:34 Temperature 98.3 F Pulse Rate 82 83 Pulse Rate [Pulse Oximeter] Respiratory Rate Blood Pressure 92/47 L Blood Pressure [Ri ght Upper Arm] Pulse Oximetry 93 92 Oxygen Delivery Me thod Oxygen Flow Rate Hospitalist - H&P: Result Labs Labs: Short CBC 05/14/24 Range/Units 16:27 WBC 19.61 H (4.50-11.00) K/uL Hgb 12.4 (12.0-16.0) gm/dL Hct 37.3 (33.0-51.0) % Plt Count 206 (140-440) K/uL BMP 05/14/24 16:27 Sodium 132 L Potassium 4.3 Chloride 98 Carbon Dioxide 26 BUN 19 Creatinine 0.9 Glucose 246 H Calcium 10.1 Cardiac Enzymes 05/14/24 05/14/24 Range/Units 16:27 19:41 Troponin I 0.23 H* 0.48 H* (0.01-0.04) ng/mL Liver Function 05/14/24 Range/Units 16:27 Total Bilirubin 0.5 (0.1-1.5) mg/dL AST 28 (12-35) U/L ALT 20 (4-35) U/L Alkaline Phosphatase 76 (40-150) U/L Albumin 4.5 (3.3-5.0) g/dL Urine 05/14/24 Range/Units 18:25 Urine Color Yellow (Yellow) Urine Appearance Clear (Clear) Urine pH 7.5 (5.0-8.5) Ur Specific [place] 1.020 (1.000-1.030) Urine Protein 2+ A (Negative) Urine Glucose (UA) Negative (Negative) EKG: Sinus tachycardia with premature atrial complexes. 106 beats per minute. Otherwise normal EKG. Ordering Physician: Cris Betancourt M.D. Date of Service: 05/14/24 Procedure(s): XR chest 1V portable Accession Number(s): [id number] cc: Vikki Cope M.D.; Cris Betancourt M.D.~ For Patients: As a result of the Cures Act, medical imaging exams and procedure reports are released immediately into your electronic medical record. You may view this report before your referring provider. If you have questions, please contact your health care provider. Indication: Fever. Technique: Chest 1 view. Comparison: Chest radiographs dated 09/05/2023. Findings/Impression: Cardiovascular and mediastinum: Heart size and vasculature are unchanged in caliber and appearance. Lungs and pleural space: Low lung volumes with diffuse interstitial prominence, which may be artifactual though mild pulmonary edema or infection could have a similar appearance. No sign of pleural effusion. No pneumothorax. Bones and soft tissues: No acute findings. Redemonstrated severe bilateral shoulder arthrosis. Dictated by Glenn Caro MD @ 05/14/2024 5:17:23 PM (Electronically Signed) Ordering Physician: Cris Betancourt M.D. Date of Service: 05/14/24 Procedure(s): CT chest abdomen pelv w con Accession Number(s): [id number] cc: Vikki Cope M.D.; Cris Betancourt M.D.~ For Patients: As a result of the Cures Act, medical imaging exams and procedure reports are released immediately into your electronic medical record. You may view this report before your referring provider. If you have questions, please contact your health care provider. INDICATION: FEVER, UNKNOWN SOURCE, N/V, ELEVATED WHITE COUNT. TECHNIQUE: CT chest, abdomen and pelvis acquired 66 cc Isovue 370 IV contrast. COMPARISON: CT chest abdomen pelvis dated 11/19/2013. FINDINGS: CHEST: Cardiovascular structures: Heart size is normal. Thoracic aorta and main pulmonary artery are normal in caliber. Mediastinum and nikole: No mass or adenopathy. Lungs and pleura: Respiratory motion artifact limits fine detail evaluation of the pulmonary parenchyma. Unchanged size of the right upper lobe 7 mm pulmonary nodule (2/36). Mild bibasilar subsegmental atelectasis. Lungs are otherwise essentially clear. No pleural Chest wall and axilla: No mass or adenopathy. Bones: No suspicious bone lesions. Redemonstrated sternotomy wires. Unremarkable for age. ABDOMEN AND PELVIS: Liver: Unremarkable. Gallbladder and bile ducts: Cholelithiasis of acute without discrete evidence cholecystitis. There is = mild dilatation of the intrahepatic and extrahepatic biliary ducts, with the distal common bile duct measuring up to 10 mm in diameter. No evident choledocholithiasis. Pancreas: Unremarkable. Spleen: Unremarkable. Adrenal glands: Unremarkable. Kidneys: Subcentimeter cortical hypodensities are too small to characterize. No hydronephrosis. Evaluation of the distal ureters is limited by artifact from left total hip arthroplasty. GI tract: Unremarkable. Vascular structures: Unremarkable. Lymph nodes: Unremarkable. Peritoneum/Retroperitoneum/Abdominal Wall: Unremarkable. No free air or significant free fluid. Pelvic Organs: Unremarkable. Bones and superficial soft tissues: Moderate to severe multilevel degenerative changes in the thoracolumbar spine. No suspicious bone lesions. Partially visualized left total hip arthroplasty. Associated artifact limits evaluation of surrounding structures. IMPRESSION: 1. There is cholelithiasis with mild intrahepatic and extrahepatic biliary ductal dilatation. There is no discretely visualized choledocholithiasis though evaluation relatively limited by CT. 2. Otherwise, no evident acute abnormality in the chest, abdomen, or pelvis. Please note that all CT scans at this facility use dose modulation, iterative reconstruction, and/or weight-based dosing when appropriate to reduce radiation dose to as low as reasonably achievable. Dictated by Glenn Caro MD @ 05/14/2024 7:01:21 PM (Electronically Signed) Assessment and Plan Assessment and plan (1) Sepsis: Problem comment: - elevated white blood count, her rate greater than 90, respiratory rate 20, map less than 65. Lactate within normal limits. Patient received 2 L of IV fluids in the emergency department and blood pressure and map improved to 102/73. Blood culture was obtained in the emergency department. Patient was started on cefepime and Flagyl for concern of acute cholecystitis. I have ordered these to continue. I have also ordered IV fluid since patient will be NPO. Status: Acute (2) Acute cholecystitis: Problem comment: - IV antibiotics as above. Dr. Clarke from General surgery was contacted through the emergency department and recommended transfer for cholecystostomy tube. Patient is declining transfer for further intervention. Status: Acute (3) Acute hypotension: Problem comment: - improved with IV fluids. Lactate within normal limits. Status: Acute (4) Elevated troponin I level: Problem comment: - has extensive history of coronary artery disease with four-vessel CABG in 2000. She has a history of hypertension and hyperlipidemia. - NSTEMI, suspect demand ischemia: EKG in emergency department is unremarkable. Patient is not having any chest pain or dyspnea. Troponin peaked at 0.48. Obtain echocardiogram. Status: Acute (5) Hypoxia: Problem comment: - treat with supplemental oxygen, especially in the setting of demand ischemia. Status: Acute (6) Hypertension: Problem comment: Hold antihypertensives since patient is having hypotension from sepsis. Status: Chronic (7) Stage 3a chronic kidney disease: Problem comment: - 05/08/2024 creatinine 0.95, baseline creatinine over the last few years is about 1-1.1 - creatinine is 0.9 today. Monitor. Status: Chronic (8) Hyperlipidemia: Problem comment: Continue rosuvastatin. Status: Chronic Plan Low-dose enoxaparin for VTE prophylaxis. Total Time Spent Total Time Spent: Critical care time: 60 minutes including total of 30 minutes discussion with patient and multiple family members, review of labs, diagnostics, notes, [facility] record, reconciling medications.
[2024-05-14] MEDS: 0.9 % SODIUM CHLORIDE 1000 ml 1,000 ML 75 ML IV (22:35)
[2024-05-14 23:11] LABS: Troponin I* 0.43 ng/mL (0.01-0.04)
[2024-05-15] VITALS (15 sets, daily range): BP systolic 93–122; BP diastolic 49–61; PULSE 72–99; RESP 18–22; TEMP 36.8–38.6; O2SAT 89–100
[2024-05-15] MEDS: CEFEPIME HCL 2 GM in 0.9 % SODIUM CHLORIDE Mini-bag 100 ML IVPB ×3 (03:27→19:42)
[2024-05-15] MEDS: metroNIDAZOLE 500 MG/100 ML PIGGYBACK 100 MG IVPB ×3 (04:20→20:24)
[2024-05-15] MEDS: ACETAMINOPHEN 325 MG TABLET 975 MG PO ×2 (04:23→19:50)
--- NOTE | 2024-05-15 06:34 | PC.NURSE ---
End of shift report : Pleasant and cooperative with cares. Alert and oriented x 4. Pain to left shoulder and neck reported, per patient this is chronic pain and is well managed with prn tylenol and positioning. Denies any chest pain, cough or shortness of breath. Admitted with oxygen at 2L per NC, ER staff reporting patient hypoxic while in ED. Meat Curer attempted to wean patient off O2 due to sats 98-100% on 2L. Patient did not tolerate wean, sats dropped to 86% on room air, oxygen reapplied and required increase to 3L due to sats remaining 89% on 2L. Lung sounds clear, diminished in bases. Abdomen soft, tender to palpation in RUQ into epigastric region. At 0400 pt reported feeling chilled, temp 100.4, tylenol administered and effective, temp reduced to 98.9. Bowel sounds active x 4 quadrants, denies any nausea or vomiting. Bruising to LUE, received covid vaccine last week and having extensive bruising that surrounds entire bicep and goes under axilla and onto chest.
[2024-05-15 08:33] LABS: Basophils Percent Auto 0.1 % (0.0-3.0); Hematocrit 28.7 % (33.0-51.0); Hemoglobin* 9.4 gm/dL (12.0-16.0); Immature Granulocytes Pct Auto 0.3 %; Mean Corpuscular HGB Conc 33 gm/dL (32-36); Mean Corpuscular Hemoglobin 32 pg (26-34); Mean Corpuscular Volume 97 fL (80-100); Monocytes Percent Auto 6.6 % (0.0-11.0); Platelet Count* 152 K/uL (140-440); RDW Coefficient of Variation % 12.2 % (11.5-15.5); Red Blood Count 2.96 m/uL (4.00-5.20); White Blood Count* 12.84 K/uL (4.50-11.00)
[2024-05-15 08:35] LABS: Slide Review Reflex No
[2024-05-15 08:47] LABS: Albumin* 3.2 g/dL (3.3-5.0); Chloride* 105 mmol/L (96-114)
[2024-05-15 08:48] LABS: Potassium* 3.9 mmol/L (3.6-5.1); Sodium* 133 mmol/L (135-149)
[2024-05-15 08:50] LABS: Anion Gap 5 mEq/L (7-15); Aspartate Amino Transferase* 21 U/L (12-35); Bilirubin Total* 0.4 mg/dL (0.1-1.5); Carbon Dioxide* 23 mmol/L (20-32); Creatinine* 0.9 mg/dL (0.5-1.5); Est. Creatinine Clearance* 30.62; Estimated Glomerular Filt Rate 63 ml/min; Total Protein* 5.9 g/dL (6.0-8.3)
[2024-05-15 08:51] LABS: Alanine Aminotransferase* 14 U/L (4-35); Alkaline Phosphatase* 49 U/L (40-150); Blood Urea Nitrogen* 21 mg/dL (7-30); Glucose* 123 mg/dL (60-115); Lipase* 37 U/L (23-300)
[2024-05-15 09:08] LABS: Procalcitonin* 1.58 ng/mL (<0.50)
[2024-05-15 09:16] LABS: C Reactive Protein* 16.3 mg/dL (0.5-1.0)
[2024-05-15 09:18] LABS: Troponin I* 0.27 ng/mL (0.01-0.04)
--- NOTE | 2024-05-15 09:18 | NUTR.NU ---
RDN with nutrition screen related to positive skin risk. Patient admitted for sepsis, and acute cholecystitis. Patient is desiring no aggressive cares at this time. Goal of cares to be discussed with patient per MD. Current weight 132lb 6.4oz; height 5ft; BMI 25.9 kg/m2. Limited weight history to assess. MST score normal. Current diet is clear liquids. Not appropriate to visit with patient at this time due to goals of care. No nutrition interventions at this time due to current diet order. RDN will continue to monitor and reassess as indicated.
--- NOTE | 2024-05-15 09:41 | P.IMPN_ITS ---
Progress Note: A&P Assessment and plan (1) Sepsis: Problem details: - WBC of 16, HR >90, T 100.1, MAP <65 on admission - presumed source: gallbladder - Cefepime and Flagyl (05/14) Status: Acute (2) Acute cholecystitis: Problem details: - IV antibiotics as above; General Surgery consulted in ER and recommended transfer for cholecystostomy tube, patient declined - reassuring ultrasound 05/15, continue IV abx, no transfer or aggressive procedures given goals of care Status: Acute (3) Acute hypotension: Problem details: - improved with IV fluids, lactate normal - continue low dose IVFs, current MAP >65 Status: Acute (4) Elevated troponin I level: Problem details: - has extensive history of CAD, s/p 4-vessel CABG in 2000, HTN, hyperlipidemia - NSTEMI, suspect demand ischemia given reassuring EKG - asymptomatic - troponin peak at 0.48 - patient declined TTE or further workup 05/15 Status: Acute (5) Hypoxia: Problem details: - treat with supplemental oxygen, especially in the setting of demand ischemia Status: Acute (6) Hypertension: Problem details: - holding home antihypertensives given hypotension Status: Chronic (7) Stage 3a chronic kidney disease: Problem details: - 05/08/2024 creatinine 0.95, baseline creatinine over the last few years is about 1-1.1 - creatinine is 0.9 today. Monitor. Status: Chronic (8) Anemia: Problem details: - acute anemia (admission 12.4 --> 9.4 on hospital day 1) - presumably related to dilution/acute illness, no evidence of acute bleeding and normal BUN - on BID PPI Status: Acute Plan - per above - daughter updated at bedside x2, questions answered. Patient and daughter aware of tenuous status Subjective Date Seen: 05/15/24 Interval history: Maisha was admitted to the hospital last night for nausea, vomiting, and fever. Imaging in ER concerning for cholelithiasis with mild intrahepatic/extrahepatic biliary ductal dilatation, WBC 19. Patient refused transfer to tertiary care center for cholecystostomy tube, agreeable to IV antibiotics here but no surgical interventions or transfer. This morning, she is feeling better, has no concerns for hospitalist team. Reviewed findings since admission with daughter at bedside; would like to continue IV abx, discontinue telemetry. Defers TTE. Exam Narrative: Exam Narrative: GEN: Alert, laying comfortably in bed HEENT: Poor dentition without acute infection, EOMIs bilaterally, no scleral icterus CV: RRR, No concerning murmurs R: LCTA bilaterally without concerning wheezing Ab: Soft, tolerates palpation, negative Neal's sign Ext: 2+ pitting edema BLE Skin: No jaundice Neuro: No focal deficits or resting tremor Psych: Appropriate Const: Vital Signs, click to edit/add: Vital Signs - 24 hr 05/14/24 15:42 05/14/24 15:54 05/14/24 16:00 Temperature 100.1 F H Pulse Rate 108 H 108 H Pulse Rate [Pulse Oximeter] 103 H Respiratory Rate 20 Blood Pressure Blood Pressure [Le ft Arm] Blood Pressure [Ri ght Arm] Blood Pressure [Ri ght Upper Arm] 145/99 H Pulse Oximetry 90 93 93 Oxygen Delivery Me thod Room Air Nasal Cannula Oxygen Flow Rate 2 05/14/24 16:15 05/14/24 16:30 05/14/24 16:45 Temperature Pulse Rate 108 H 103 H 104 H Pulse Rate [Pulse Oximeter] Respiratory Rate Blood Pressure Blood Pressure [Le ft Arm] Blood Pressure [Ri ght Arm] Blood Pressure [Ri ght Upper Arm] Pulse Oximetry 94 93 95 Oxygen Delivery Me thod Oxygen Flow Rate 05/14/24 17:00 05/14/24 17:15 05/14/24 17:49 Temperature Pulse Rate 103 H 106 H 99 Pulse Rate [Pulse Oximeter] Respiratory Rate Blood Pressure Blood Pressure [Le ft Arm] Blood Pressure [Ri ght Arm] Blood Pressure [Ri ght Upper Arm] Pulse Oximetry 94 94 96 Oxygen Delivery Me thod Oxygen Flow Rate 05/14/24 17:50 05/14/24 18:02 05/14/24 18:17 Temperature Pulse Rate 98 Pulse Rate [Pulse Oximeter] Respiratory Rate Blood Pressure 117/63 117/63 98/58 L Blood Pressure [Le ft Arm] Blood Pressure [Ri ght Arm] Blood Pressure [Ri ght Upper Arm] Pulse Oximetry 96 Oxygen Delivery Me thod Oxygen Flow Rate 05/14/24 18:28 05/14/24 18:30 05/14/24 18:32 Temperature Pulse Rate 108 H 95 102 H Pulse Rate [Pulse Oximeter] Respiratory Rate Blood Pressure 105/55 L Blood Pressure [Le ft Arm] Blood Pressure [Ri ght Arm] Blood Pressure [Ri ght Upper Arm] Pulse Oximetry 94 94 96 Oxygen Delivery Me thod Nasal Cannula Oxygen Flow Rate 2 05/14/24 18:33 05/14/24 18:45 05/14/24 18:47 Temperature Pulse Rate 98 93 94 Pulse Rate [Pulse Oximeter] Respiratory Rate Blood Pressure 87/44 L Blood Pressure [Le ft Arm] Blood Pressure [Ri ght Arm] Blood Pressure [Ri ght Upper Arm] Pulse Oximetry 95 94 94 Oxygen Delivery Me thod Oxygen Flow Rate 05/14/24 18:49 05/14/24 18:51 05/14/24 19:02 Temperature Pulse Rate 95 96 Pulse Rate [Pulse Oximeter] Respiratory Rate Blood Pressure 79/52 L 85/52 L 87/51 L Blood Pressure [Le ft Arm] Blood Pressure [Ri ght Arm] Blood Pressure [Ri ght Upper Arm] Pulse Oximetry 95 95 Oxygen Delivery Me thod Oxygen Flow Rate 05/14/24 19:04 05/14/24 19:15 05/14/24 19:19 Temperature Pulse Rate 95 91 95 Pulse Rate [Pulse Oximeter] Respiratory Rate Blood Pressure Blood Pressure [Le ft Arm] Blood Pressure [Ri ght Arm] Blood Pressure [Ri ght Upper Arm] Pulse Oximetry 83 L 92 94 Oxygen Delivery Me thod Oxygen Flow Rate 05/14/24 19:30 05/14/24 19:40 05/14/24 19:45 Temperature Pulse Rate 96 92 90 Pulse Rate [Pulse Oximeter] Respiratory Rate Blood Pressure 94/44 L Blood Pressure [Le ft Arm] Blood Pressure [Ri ght Arm] Blood Pressure [Ri ght Upper Arm] Pulse Oximetry 93 95 93 Oxygen Delivery Me thod Oxygen Flow Rate 05/14/24 19:47 05/14/24 19:52 05/14/24 19:52 Temperature Pulse Rate 89 86 86 Pulse Rate [Pulse Oximeter] Respiratory Rate Blood Pressure 92/44 L 92/43 L 92/43 L Blood Pressure [Le ft Arm] Blood Pressure [Ri ght Arm] Blood Pressure [Ri ght Upper Arm] Pulse Oximetry 94 92 92 Oxygen Delivery Me thod Oxygen Flow Rate 05/14/24 19:53 05/14/24 20:00 05/14/24 20:02 Temperature Pulse Rate 88 83 85 Pulse Rate [Pulse Oximeter] Respiratory Rate Blood Pressure 92/45 L Blood Pressure [Le ft Arm] Blood Pressure [Ri ght Arm] Blood Pressure [Ri ght Upper Arm] Pulse Oximetry 94 94 93 Oxygen Delivery Me thod Oxygen Flow Rate 05/14/24 20:15 05/14/24 20:17 05/14/24 20:20 Temperature 98.3 F Pulse Rate 82 83 Pulse Rate [Pulse Oximeter] 81 Respiratory Rate 20 Blood Pressure 92/47 L Blood Pressure [Le ft Arm] Blood Pressure [Ri ght Arm] 102/73 Blood Pressure [Ri ght Upper Arm] Pulse Oximetry 93 92 93 Oxygen Delivery Me thod Room Air Oxygen Flow Rate 05/14/24 20:20 05/14/24 20:34 05/14/24 21:42 Temperature 98.3 F Pulse Rate Pulse Rate [Pulse Oximeter] Respiratory Rate 20 Blood Pressure Blood Pressure [Le ft Arm] Blood Pressure [Ri ght Arm] Blood Pressure [Ri ght Upper Arm] Pulse Oximetry 93 93 Oxygen Delivery Me thod Nasal Cannula Oxygen Flow Rate 2 05/14/24 23:00 05/14/24 23:00 05/14/24 23:00 Temperature Pulse Rate 77 Pulse Rate [Pulse Oximeter] 81 Respiratory Rate 20 22 Blood Pressure Blood Pressure [Le ft Arm] Blood Pressure [Ri ght Arm] Blood Pressure [Ri ght Upper Arm] Pulse Oximetry 100 Oxygen Delivery Me thod Nasal Cannula Oxygen Flow Rate 2 05/14/24 23:00 05/15/24 03:00 05/15/24 04:23 Temperature 99.3 F 99.3 F 100.4 F H Pulse Rate Pulse Rate [Pulse Oximeter] 84 84 Respiratory Rate 22 22 Blood Pressure Blood Pressure [Le ft Arm] Blood Pressure [Ri ght Arm] 111/51 L 111/51 L Blood Pressure [Ri ght Upper Arm] Pulse Oximetry 100 100 Oxygen Delivery Me thod Nasal Cannula Nasal Cannula Oxygen Flow Rate 2 2 05/15/24 07:00 05/15/24 08:40 05/15/24 09:00 Temperature 98.2 F Pulse Rate 72 Pulse Rate [Pulse Oximeter] 73 Respiratory Rate 20 Blood Pressure Blood Pressure [Le ft Arm] 103/49 L Blood Pressure [Ri ght Arm] Blood Pressure [Ri ght Upper Arm] Pulse Oximetry 98 95 Oxygen Delivery Me thod Nasal Cannula Oxygen Flow Rate 2 Labs Labs: Laboratory Results - last 24 hr 05/14/24 05/14/24 05/14/24 15:40 16:27 18:25 WBC 19.61 H RBC 3.93 L Hgb 12.4 Hct 37.3 MCV 95 MCH 32 MCHC 33 RDW Coeff of Gilbert 11.9 Plt Count 206 Neut % (Auto) 92.5 H Lymph % (Auto) 1.4 L [place] % (Auto) 5.4 Eos % (Auto) 0.0 Baso % (Auto) 0.1 Neut # (Auto) 18.10 H Lymph # (Auto) 0.30 L [place] # (Auto) 1.10 H Eos # (Auto) 0.00 Baso # (Auto) 0.00 Abs Immat Gran (auto) 0.10 Imm/Tot Granulo (auto) 0.6 Sodium 132 L Potassium 4.3 Chloride 98 Carbon Dioxide 26 Anion Gap 8 BUN 19 Creatinine 0.9 Estimated Creat Clear 35.26 Estimated GFR 63 Glucose 246 H Lactate 0.9 Calcium 10.1 Magnesium 1.6 Total Bilirubin 0.5 AST 28 ALT 20 Alkaline Phosphatase 76 Troponin I 0.23 H* C-Reactive Protein 3.0 H Total Protein 7.5 Albumin 4.5 Lipase 59 Procalcitonin 0.83 H Urine Color Yellow Urine Appearance Clear Urine pH 7.5 Ur Specific [place] 1.020 Urine Protein 2+ A Urine Glucose (UA) Negative Urine Ketones 1+ A Urine Blood Negative Urine Nitrite Negative Urine Bilirubin Negative Urine Urobilinogen 0.2 Ur Leukocyte Esterase Negative Urine RBC 0-2 Urine WBC 0-2 Ur Squamous Epith Cells None Urine Bacteria None SARS-CoV-2 (PCR) Negative SARS-CoV-2 Influenza Type A (PCR) Negative PCR FLU A Influenza Type B (PCR) Negative PCR FLU B RSV (PCR) Negative PCR RSV 05/14/24 05/14/24 05/15/24 19:41 22:31 08:20 WBC 12.84 H RBC 2.96 L Hgb 9.4 L Hct 28.7 L MCV 97 MCH 32 MCHC 33 RDW Coeff of Gilbert 12.2 Plt Count 152 Neut % (Auto) 83.0 H Lymph % (Auto) 10.0 L [place] % (Auto) 6.6 Eos % (Auto) 0.0 Baso % (Auto) 0.1 Neut # (Auto) 10.70 H Lymph # (Auto) 1.30 [place] # (Auto) 0.80 Eos # (Auto) 0.00 Baso # (Auto) 0.00 Abs Immat Gran (auto) 0.00 Imm/Tot Granulo (auto) 0.3 Sodium 133 L Potassium 3.9 Chloride 105 Carbon Dioxide 23 Anion Gap 5 L BUN 21 Creatinine 0.9 Estimated Creat Clear 30.62 Estimated GFR 63 Glucose 123 H Lactate 0.8 Calcium 9.0 Magnesium Total Bilirubin 0.4 AST 21 ALT 14 Alkaline Phosphatase 49 Troponin I 0.48 H* 0.43 H* 0.27 H* C-Reactive Protein 16.3 H Total Protein Albumin Lipase Procalcitonin Urine Color Urine Appearance Urine pH Ur Specific [place] Urine Protein Urine Glucose (UA) Urine Ketones Urine Blood Urine Nitrite Urine Bilirubin Urine Urobilinogen Ur Leukocyte Esterase Urine RBC Urine WBC Ur Squamous Epith Cells Urine Bacteria SARS-CoV-2 (PCR) Influenza Type A (PCR) Influenza Type B (PCR) RSV (PCR) 05/15/24 08:20 WBC RBC Hgb Hct MCV MCH MCHC RDW Coeff of Gilbert Plt Count Neut % (Auto) Lymph % (Auto) [place] % (Auto) Eos % (Auto) Baso % (Auto) Neut # (Auto) Lymph # (Auto) [place] # (Auto) Eos # (Auto) Baso # (Auto) Abs Immat Gran (auto) Imm/Tot Granulo (auto) Sodium Potassium Chloride Carbon Dioxide Anion Gap BUN Creatinine Estimated Creat Clear Estimated GFR Glucose Lactate Calcium Magnesium Total Bilirubin AST ALT Alkaline Phosphatase Troponin I C-Reactive Protein Cancelled Total Protein 5.9 L Albumin 3.2 L Lipase 37 Procalcitonin 1.58 H Urine Color Urine Appearance Urine pH Ur Specific [place] Urine Protein Urine Glucose (UA) Urine Ketones Urine Blood Urine Nitrite Urine Bilirubin Urine Urobilinogen Ur Leukocyte Esterase Urine RBC Urine WBC Ur Squamous Epith Cells Urine Bacteria SARS-CoV-2 (PCR) Influenza Type A (PCR) Influenza Type B (PCR) RSV (PCR)
--- NOTE | 2024-05-15 10:00 | CRLHL7_ITS ---
For Patients: As a result of the Century Cures Act, medical imaging exams and procedure reports are released immediately into your electronic medical record. You may view this report before your referring provider. If you have questions, please contact your health care provider. INDICATION: Reassess ducts COMPARISON: CT 05/14/2024, 11/19/2013 TECHNIQUE: Real time rosas scale imaging and color Doppler analysis was performed of the right upper quadrant. FINDINGS: The liver measures 18.4 cm. No intrahepatic mass. Mild intrahepatic biliary duct dilation. Normal patency of the main portal vein with antegrade flow. No IVC clot. Ectatic aorta. There is no evidence of ascites. The gallbladder is of normal size and there are multiple echogenic stones layering within the gallbladder lumen. The gallbladder wall measures 1.9 mm in thickness. The common bile duct measures 9.3 mm in diameter at the level of the sigrid hepatis. The pancreas appears normal. There is no evidence of a stone or hydronephrosis within the right kidney. The right kidney measures 10.0 cm in length. IMPRESSION: Multiple echogenic stones in the gallbladder consistent with cholelithiasis. The common bile duct measures 9.3 millimeters. Mild intrahepatic biliary duct dilation again noted. Dictated by Chico Fink MD @ 05/15/2024 10:47:09 AM (Electronically Signed)
[2024-05-15] MEDS: levETIRAcetam 500 MG TABLET 750 MG PO ×2 (10:54→20:25)
[2024-05-15] MEDS: SERTRALINE 50 MG TABLET 150 MG PO (10:54)
--- NOTE | 2024-05-15 19:35 | PC.NURSE ---
The patient is A&O, noted to have garbles speech due to no upper teeth. VSS on RA. The patient reports abdominal fullness and pain after eating. Regular diet, no N/V. The patients daughter was here most of the day. IV abx continue. L foot swelling is noted, the patient requested to go back to bed multiple times today after barely being up in the chair. AX1 w/ 4 wheel walker. Incontinent and continent at times. Poor PO fluid intake, although encouraged. Call light within reach. Kayleigh VÁSQUEZ BSN
[2024-05-15] MEDS: ROSUVASTATIN CALCIUM 10 MG TABLET 20 MG PO (19:43)
[2024-05-15] MEDS: ENOXAPARIN 40 MG/0.4 ML INJ SUBCUT (20:25)
[2024-05-15] MEDS: OMEPRAZOLE 20 MG CAPSULE DR PO (20:26)
[2024-05-15] MEDS: clonazePAM 0.5 MG TABLET 0.75 MG PO (20:27)
[2024-05-16 03:00] VITALS: BP 119/70; PULSE 91; RESP 20; TEMP 38.1; O2SAT 95
--- NOTE | 2024-05-16 04:59 | PC.NURSE ---
Shift note: Pt is pleasant, alert and oriented. Continue to desaturate while sleeping and has been on 2L of oxygen throughout the night. Pt had fever of 101.5 at 1900. Tylenol given, rechecked at 1999 was 99.9. informed and asked to continue treatment. Pt has muffled voice. Pt had adequate sleep.
[2024-05-16] MEDS: CEFEPIME HCL 2 GM in 0.9 % SODIUM CHLORIDE Mini-bag 100 ML IVPB ×3 (05:14→19:46)
[2024-05-16] MEDS: metroNIDAZOLE 500 MG/100 ML PIGGYBACK 100 MG IVPB ×3 (05:15→20:28)
[2024-05-16 06:26] LABS: Lactate* < 0.4 mmol/L (0.5-1.9)
[2024-05-16 06:27] LABS: Basophils Absolute Auto 0.03 K/uL (0.00-0.30); Basophils Percent Auto 0.3 % (0.0-3.0); Eosinophils Absolute Auto 0.06 K/uL (0.00-0.50); Eosinophils Percent Auto 0.6 % (0.0-7.0); Hematocrit 30.9 % (33.0-51.0); Immature Granulocytes Abs Auto 0.03 K/uL (0.00-0.30); Immature Granulocytes Pct Auto 0.3 %; Lymphocytes Percent Auto 14.4 % (20-44); Mean Corpuscular HGB Conc 32 gm/dL (32-36); Mean Corpuscular Hemoglobin 32 pg (26-34); Mean Corpuscular Volume 98 fL (80-100); Monocytes Percent Auto 7.1 % (0.0-11.0); Neutrophils Percent Auto 77.3 % (42.0-72.0); Platelet Count* 163 K/uL (140-440); RDW Coefficient of Variation % 12.2 % (11.5-15.5); Red Blood Count 3.16 m/uL (4.00-5.20); White Blood Count* 10.53 K/uL (4.50-11.00)
[2024-05-16 06:28] LABS: Slide Review Reflex No
[2024-05-16 06:52] LABS: Albumin* 3.3 g/dL (3.3-5.0); Chloride* 105 mmol/L (96-114)
[2024-05-16 06:53] LABS: Potassium* 3.7 mmol/L (3.6-5.1); Sodium* 132 mmol/L (135-149)
[2024-05-16 06:55] LABS: Alkaline Phosphatase* 54 U/L (40-150); Anion Gap 7 mEq/L (7-15); Aspartate Amino Transferase* 21 U/L (12-35); Bilirubin Total* 0.4 mg/dL (0.1-1.5); Carbon Dioxide* 20 mmol/L (20-32); Creatinine* 0.9 mg/dL (0.5-1.5); Est. Creatinine Clearance* 30.62; Estimated Glomerular Filt Rate 63 ml/min
[2024-05-16 06:56] LABS: Alanine Aminotransferase* 14 U/L (4-35); Blood Urea Nitrogen* 16 mg/dL (7-30); Calcium* 9.1 mg/dL (8.4-10.6); Glucose* 134 mg/dL (60-115); Lipase* 58 U/L (23-300)
[2024-05-16 07:00] VITALS: BP 124/59; PULSE 84; RESP 20; TEMP 37.2; O2SAT 94
[2024-05-16 07:16] LABS: C Reactive Protein* 13.9 mg/dL (0.5-1.0)
[2024-05-16] MEDS: LACTOBACILLUS ACIDOPHILUS 1 TABLET 1 TAB PO ×3 (08:08→17:35)
[2024-05-16] MEDS: OMEPRAZOLE 20 MG CAPSULE DR PO ×2 (08:08→20:28)
--- NOTE | 2024-05-16 08:48 | PM.IMPN1 ---
Progress Note: A&P Assessment and plan (1) Sepsis: Problem details: - WBC of 16, HR >90, T 100.1, MAP <65 on admission - presumed source: gallbladder, BCx NGTD, UCx pending - Cefepime and Flagyl (05/14) Status: Acute (2) Acute cholecystitis: Problem details: - IV antibiotics as above; General Surgery consulted in ER and recommended transfer for cholecystostomy tube, patient declined - reassuring ultrasound 05/15, continue IV abx, no transfer or aggressive procedures given goals of care Status: Acute (3) Acute hypotension: Problem details: - improved with IV fluids, lactate normal - continue low dose IVFs, current MAP >65 - closer to baseline on hospital day 2 (05/16) Status: Acute (4) Elevated troponin I level: Problem details: - has extensive history of CAD, s/p 4-vessel CABG in 2000, HTN, hyperlipidemia - NSTEMI, suspect demand ischemia given reassuring EKG - asymptomatic - troponin peak at 0.48 - patient declined TTE or further workup 05/15 Status: Acute (5) Hypoxia: Problem details: - treat with supplemental oxygen, especially in the setting of demand ischemia - stable on RA during the day as of 05/16 Status: Acute (6) Hypertension: Problem details: - holding home antihypertensives given hypotension - BP starting to increase 05/16, continue to follow closely, restart medications as tolerated Status: Chronic (7) Anemia: Problem details: - acute anemia (admission 12.4 --> 9.4 on hospital day 1, Hgb of 10 on 05/16) - presumably related to dilution/acute illness, no evidence of acute bleeding and normal BUN - on BID PPI Status: Acute Plan - per above - possibly home in the next 1-2 days pending fever and clinical course - reviewed plan of care with daughter; she would like to take patient home when medically appropriate (they currently have PT and shower aide, SW assisting to evaluate other possible resources, appreciate their input) Subjective Date Seen: 05/16/24 Interval history: Maisha was admitted to the hospital on 05/14 for nausea, vomiting, and fever. Imaging in ER was notable for cholelithiasis with mild intrahepatic/extrahepatic biliary ductal dilatation, WBC 19. Maisha refused transfer to tertiary care center for cholecystostomy tube, agreeable to IV antibiotics here but no surgical interventions or transfer. She also declined TTE and telemetry monitoring. Wearing O2 overnight here but refuses to use at home. No desire for sleep study. Abdominal ultrasound performed 05/15 revealed cholelithiasis and mild intrahepatic biliary ductal dilatation without evidence of cholecystitis. Patient is tolerating p.o. intake (although has mild anorexia), denies abdominal pain. Her white blood count has normalized on Cefepime and Metronidazole, LFTs have been normal throughout stay. Blood culture NGTD, Urine culture pending. Continues to have fevers in the evenings, TMax in the last 24 hours was 100.5 Maisha has no concerns this morning, she admits some surprise at her significant improvement. We discussed discharge planning today with her and daughter. They hope to go home with assistance when Maisha is medically appropriate for d/c. Exam Narrative: Exam Narrative: GEN: Awake and comfortable in chair HEENT: EOMIs bilaterally, no scleral icterus CV: RRR, No concerning murmurs R: LCTA bilaterally Ext: 2+ pitting edema BLE Skin: No jaundice Neuro: No focal deficits Psych: Appropriate Const: Vital Signs, click to edit/add: Vital Signs - 24 hr 05/15/24 09:00 05/15/24 11:00 05/15/24 11:04 Temperature Pulse Rate [Pulse Oximeter] 73 Respiratory Rate 20 Blood Pressure [Ri ght Arm] 93/51 L 103/50 L Pulse Oximetry 95 96 Oxygen Delivery Me thod Nasal Cannula Nasal Cannula Oxygen Flow Rate 2 2 05/15/24 14:50 05/15/24 15:00 05/15/24 18:01 Temperature 99.4 F Pulse Rate [Pulse Oximeter] 73 Respiratory Rate 18 18 20 Blood Pressure [Ri ght Arm] 112/59 L Pulse Oximetry 92 94 94 Oxygen Delivery Me thod Nasal Cannula Room Air Room Air Oxygen Flow Rate 1.5 05/15/24 19:00 05/15/24 19:50 05/15/24 22:00 Temperature 101.5 F H 101.5 F H 99.9 F H Pulse Rate [Pulse Oximeter] 99 94 Respiratory Rate 20 20 Blood Pressure [Ri ght Arm] 122/61 111/56 L Pulse Oximetry 89 90 Oxygen Delivery Me thod Room Air Room Air Oxygen Flow Rate 05/15/24 22:02 05/15/24 23:00 05/15/24 23:00 Temperature 99.9 F H Pulse Rate [Pulse Oximeter] 94 Respiratory Rate 20 20 Blood Pressure [Ri ght Arm] Pulse Oximetry 90 Oxygen Delivery Me thod Room Air Oxygen Flow Rate 2 05/16/24 03:00 05/16/24 07:00 05/16/24 07:00 Temperature 100.5 F H 98.9 F Pulse Rate [Pulse Oximeter] 91 84 Respiratory Rate 20 20 Blood Pressure [Ri ght Arm] 119/70 124/59 L Pulse Oximetry 95 94 94 Oxygen Delivery Me thod Room Air Nasal Cannula Nasal Cannula Oxygen Flow Rate 2 2 2 Labs Labs: Laboratory Results - last 24 hr 05/15/24 05/16/24 05/16/24 08:20 04:00 06:11 WBC 10.53 RBC 3.16 L Hgb 10.0 L Hct 30.9 L MCV 98 MCH 32 MCHC 32 RDW Coeff of Gilbert 12.2 Plt Count 163 Neut % (Auto) 77.3 H Lymph % (Auto) 14.4 L [place] % (Auto) 7.1 Eos % (Auto) 0.6 Baso % (Auto) 0.3 Neut # (Auto) 8.10 H Lymph # (Auto) 1.50 [place] # (Auto) 0.70 Eos # (Auto) 0.06 Baso # (Auto) 0.03 Abs Immat Gran (auto) 0.03 Imm/Tot Granulo (auto) 0.3 Sodium 133 L 132 L Potassium 3.9 3.7 Chloride 105 105 Carbon Dioxide 23 20 Anion Gap 5 L 7 BUN 21 16 Creatinine 0.9 0.9 Estimated Creat Clear 30.62 30.62 Estimated GFR 63 63 Glucose 123 H 134 H Lactate < 0.4 L Calcium 9.0 9.1 Total Bilirubin 0.4 0.4 AST 21 21 ALT 14 14 Alkaline Phosphatase 49 54 Troponin I 0.27 H* C-Reactive Protein 16.3 H 13.9 H Total Protein 5.9 L 6.0 Albumin 3.2 L 3.3 Lipase 37 58 Procalcitonin 1.58 H
[2024-05-16 11:00] VITALS: BP 142/64; PULSE 80; RESP 20; TEMP 37.4; O2SAT 96
[2024-05-16] MEDS: SERTRALINE 100 MG TABLET 150 MG PO (11:29)
[2024-05-16] MEDS: levETIRAcetam 500 MG TABLET 750 MG PO ×2 (11:30→20:28)
--- NOTE | 2024-05-16 13:40 | PC.SOCIAL ---
Addendum entered and electronically signed by SHIRLENE Moya 05/16/24 13:49: Discharge planning: Melodie also stated that if at discharge the pt is going to continue seeing her right away she would need new PT orders faxed to her at #[phone]. Social work to follow-up as needed. Original Note: Discharge planning: cargo station worker spoke to Melodie Duran, Physical Therapist for the pt from [facility], whom stated that she sees the pt at her home and bills the pt's insurance as an outpatient visit. Melodie also said that she checks the pt's blood sugar for her one time a week and is in close communication with the pt's PCP, Dr. Vikki Shea. Melodie said that if the doctor feels there is an overwhelming need for the pt to do home care with PT/OT and nursing, the pt can do that and then transition back to her after the home care is completed. Social work to follow-up as needed.
[2024-05-16 15:00] VITALS: BP 167/81; PULSE 80; PULSE 86; RESP 20; TEMP 37.8; O2SAT 94
[2024-05-16 16:16] VITALS: TEMP 37.8
[2024-05-16] MEDS: ACETAMINOPHEN 325 MG TABLET 975 MG PO (16:16)
[2024-05-16] MEDS: ROSUVASTATIN CALCIUM 10 MG TABLET 20 MG PO (17:35)
--- NOTE | 2024-05-16 18:05 | PC.NURSE ---
End of Shift Note: When I first arrived on shift patient was talking about how she was going to be going to [facility] today. Saw no signs of this happening as her vital signs have been ok today she did have a temp which she received tyl for this. She did complain of some nausea but applied an aromatherapy patch on her for nausea and since then has been able to eat. She did ambulate short distances in her room like around her bed and to the BR today with assist of 1. Will continue to monitor until next shift arrives.
[2024-05-16 19:54] VITALS: BP 125/72; PULSE 81; RESP 18; TEMP 36.4; O2SAT 94
[2024-05-16] MEDS: clonazePAM 0.5 MG TABLET 0.75 MG PO (20:31)
[2024-05-16] MEDS: ENOXAPARIN 40 MG/0.4 ML INJ SUBCUT (20:32)
--- NOTE | 2024-05-16 22:45 | PC.NURSE ---
Pt pleasant and cooperative. No c/o pain. remained afebrile. VSS no other c/o
[2024-05-17] VITALS (10 sets, daily range): BP systolic 123–166; BP diastolic 61–89; PULSE 82–96; RESP 16–20; TEMP 36.6–37.2; O2SAT 91–95
[2024-05-17] MEDS: CEFEPIME HCL 2 GM in 0.9 % SODIUM CHLORIDE Mini-bag 100 ML IVPB ×3 (03:28→19:08)
[2024-05-17] MEDS: ACETAMINOPHEN 325 MG TABLET 975 MG PO (03:32)
[2024-05-17] MEDS: metroNIDAZOLE 500 MG/100 ML PIGGYBACK 100 MG IVPB ×3 (04:24→21:34)
--- NOTE | 2024-05-17 06:28 | PC.NURSE ---
Addendum entered by Eleni Alfaro 05/17/24 07:24: Pt's right anterior forearm IV infiltrated around 0420, IV removed catheter intact, new IV inserted on posterior of right forearm. Original Note: Pt alert and oriented x3. Afebrile. Pt reports 4/10 pain in back, pain managed with PRN Tylenol. Pt denies chest pain, SOB and N/V. Pt is up SBA with walker and gait belt in room, voiding and tolerating a regular diet.?
[2024-05-17 06:44] LABS: Basophils Absolute Auto 0.03 K/uL (0.00-0.30); Basophils Percent Auto 0.4 % (0.0-3.0); Eosinophils Percent Auto 2.4 % (0.0-7.0); Hematocrit 33.2 % (33.0-51.0); Hemoglobin* 10.8 gm/dL (12.0-16.0); Immature Granulocytes Abs Auto 0.02 K/uL (0.00-0.30); Immature Granulocytes Pct Auto 0.2 %; Lymphocytes Percent Auto 15.2 % (20-44); Mean Corpuscular HGB Conc 33 gm/dL (32-36); Mean Corpuscular Hemoglobin 32 pg (26-34); Mean Corpuscular Volume 97 fL (80-100); Neutrophils Percent Auto 74.8 % (42.0-72.0); Platelet Count* 161 K/uL (140-440); Red Blood Count 3.41 m/uL (4.00-5.20); White Blood Count* 8.23 K/uL (4.50-11.00)
[2024-05-17 06:53] LABS: Slide Review Reflex No
[2024-05-17 06:56] LABS: Albumin* 3.4 g/dL (3.3-5.0); Chloride* 105 mmol/L (96-114); Potassium* 3.8 mmol/L (3.6-5.1); Sodium* 132 mmol/L (135-149)
[2024-05-17 06:59] LABS: Alanine Aminotransferase* 13 U/L (4-35); Alkaline Phosphatase* 50 U/L (40-150); Anion Gap 8 mEq/L (7-15); Aspartate Amino Transferase* 23 U/L (12-35); Bilirubin Total* 0.6 mg/dL (0.1-1.5); Blood Urea Nitrogen* 13 mg/dL (7-30); Calcium* 9.3 mg/dL (8.4-10.6); Carbon Dioxide* 19 mmol/L (20-32); Creatinine* 0.8 mg/dL (0.5-1.5); Est. Creatinine Clearance* 30.62; Estimated Glomerular Filt Rate 73 ml/min; Glucose* 139 mg/dL (60-115); Total Protein* 6.1 g/dL (6.0-8.3)
[2024-05-17] MEDS: LACTOBACILLUS ACIDOPHILUS 1 TABLET 1 TAB PO ×3 (08:32→18:02)
[2024-05-17] MEDS: levETIRAcetam 500 MG TABLET 750 MG PO ×2 (08:32→21:08)
[2024-05-17] MEDS: SERTRALINE 100 MG TABLET 150 MG PO (08:32)
[2024-05-17] MEDS: OMEPRAZOLE 20 MG CAPSULE DR PO ×2 (08:32→21:07)
--- NOTE | 2024-05-17 09:44 | PM.IMPN1 ---
Progress Note: A&P Assessment and plan (1) Sepsis: Problem details: - WBC of 16, HR >90, T 100.1, MAP <65 on admission - presumed source: gallbladder, BCx NGTD, UCx pending - Cefepime and Flagyl (05/14) Status: Resolved (2) Acute cholecystitis: Problem details: - IV antibiotics as above; General Surgery consulted in ER and recommended transfer for cholecystostomy tube, patient declined - reassuring ultrasound 05/15, continue IV abx, no transfer or aggressive procedures given goals of care 05/17 - fever 100.1 less than 24 hours ago. Patient and daughter would like to continue IV abx, transitioning to oral when fever free 24 hours Status: Acute (3) Acute hypotension: Problem details: RESOLVED - improved with IV fluids, lactate normal - continue low dose IVFs, current MAP >65 - closer to baseline on hospital day 2 (05/16) 05/17 - acute hypotension resolved, resume home dose Metoprolol Status: Resolved (4) Elevated troponin I level: Problem details: - has extensive history of CAD, s/p 4-vessel CABG in 2000, HTN, hyperlipidemia - NSTEMI, suspect demand ischemia given reassuring EKG - asymptomatic - troponin peak at 0.48 - patient declined TTE or further workup 05/15 Status: Acute (5) Hypoxia: Problem details: RESOLVED - treat with supplemental oxygen, especially in the setting of demand ischemia - stable on RA during the day as of 05/16 Status: Resolved (6) Hypertension: Problem details: - holding home antihypertensives given hypotension - BP starting to increase 05/16, continue to follow closely, restart medications as tolerated - resume Metoprolol 05/17 Status: Chronic (7) Anemia: Problem details: - acute anemia (admission 12.4 --> 9.4 on hospital day 1, Hgb of 10 on 05/16) - presumably related to dilution/acute illness, no evidence of acute bleeding and normal BUN - on BID PPI Status: Acute Plan Patient and daughter would like to continue with antibiotic therapy, transitioning to oral when appropriate. Plan would be to discharge with family back to [facility] (in process of selling but still in their possesion) when fever free 24 hours. Patient would remain in [facility] with family support over the weekend and then move back to [facility] on Wednesday where she receives level 3 of 15 cares. Daughter is able to increase cares as needed. Time Spent With Patient Total time spent: Total time spent caring for the patient today was 45 minutes. This includes time spent for the visit reviewing the chart, time spent during the visit, time spent after the visit and documentation and planning in coordination of care. Subjective Date Seen: 05/17/24 Interval history: Patient is seen today sitting up in a chair, daughter at bedside. Continues to improve. Tolerating orals without nausea vomiting. No abdominal pain. Fever again in the last 24 hours, 101.1? at 4:00 p.m. yesterday. Discussed goals of care. Patient and daughter would like to continue with antibiotic therapy given significant, unexpected improvement. Plan to transition to oral antibiotics which fever free 24 hours. Maisha was admitted to the hospital on 05/14 for nausea, vomiting, and fever. Imaging in ER was notable for cholelithiasis with mild intrahepatic/extrahepatic biliary ductal dilatation, WBC 19. Maisha refused transfer to tertiary care center for cholecystostomy tube, agreeable to IV antibiotics here but no surgical interventions or transfer. She also declined TTE and telemetry monitoring. Wearing O2 overnight here but refuses to use at home. No desire for sleep study. Abdominal ultrasound performed 05/15 revealed cholelithiasis and mild intrahepatic biliary ductal dilatation without evidence of cholecystitis. Her white blood count has normalized on Cefepime and Metronidazole, LFTs have been normal throughout stay. Blood culture NGTD, Urine culture pending. Exam Narrative: Exam Narrative: PHYSICAL EXAM General: Pleasant, conversant, NAD HEENT: Normocephalic, atraumatic, sclera white, EOMI, oral mucosa moist Cardiovascular: RRR, S1S2. No pitting edema Pulmonary: CTA bilaterally without rhonchi, rales, expiratory wheezes. No dyspnea Neurological: Alert, answering questions appropriately, cranial nerves intact, no focal findings Extremities: No gross joint deformity or swelling. AROMI. Neurovascularly intact Skin: Warm, dry. Const: Vital Signs, click to edit/add: Vital Signs - 24 hr 05/16/24 11:00 05/16/24 15:00 05/16/24 15:00 Temperature 99.4 F Pulse Rate [Pulse Oximeter] 80 80 Respiratory Rate 20 20 Blood Pressure [Le ft Arm] Blood Pressure [Ri ght Arm] 142/64 H Pulse Oximetry 96 94 Oxygen Delivery Me thod Room Air Room Air 05/16/24 15:00 05/16/24 16:16 05/16/24 19:54 Temperature 100.1 F H 100.1 F H 97.6 F Pulse Rate [Pulse Oximeter] 86 81 Respiratory Rate 20 18 Blood Pressure [Le ft Arm] 167/81 H Blood Pressure [Ri ght Arm] 125/72 Pulse Oximetry 94 94 Oxygen Delivery Me thod Room Air Room Air 05/17/24 00:14 05/17/24 00:14 05/17/24 00:14 Temperature 98.4 F Pulse Rate [Pulse Oximeter] 88 88 Respiratory Rate 20 20 Blood Pressure [Le ft Arm] Blood Pressure [Ri ght Arm] 166/75 H Pulse Oximetry 94 94 Oxygen Delivery Me thod Room Air Room Air 05/17/24 03:22 05/17/24 07:45 Temperature 98.7 F Pulse Rate [Pulse Oximeter] 96 Respiratory Rate 20 20 Blood Pressure [Le ft Arm] 163/89 H Blood Pressure [Ri ght Arm] Pulse Oximetry 91 Oxygen Delivery Me thod Room Air Labs Labs: Laboratory Results - last 24 hr 05/17/24 06:15 WBC 8.23 RBC 3.41 L Hgb 10.8 L Hct 33.2 MCV 97 MCH 32 MCHC 33 RDW Coeff of Gilbert 12.0 Plt Count 161 Neut % (Auto) 74.8 H Lymph % (Auto) 15.2 L Wilkinson % (Auto) 7.0 Eos % (Auto) 2.4 Baso % (Auto) 0.4 Neut # (Auto) 6.20 Lymph # (Auto) 1.30 Wilkinson # (Auto) 0.60 Eos # (Auto) 0.20 Baso # (Auto) 0.03 Abs Immat Gran (auto) 0.02 Imm/Tot Granulo (auto) 0.2 Sodium 132 L Potassium 3.8 Chloride 105 Carbon Dioxide 19 L Anion Gap 8 BUN 13 Creatinine 0.8 Estimated Creat Clear 30.62 Estimated GFR 73 Glucose 139 H Calcium 9.3 Total Bilirubin 0.6 AST 23 ALT 13 Alkaline Phosphatase 50 Total Protein 6.1 Albumin 3.4
[2024-05-17] MEDS: METOPROLOL SUCCINATE (XL) 100 MG TAB PO (11:33)
--- NOTE | 2024-05-17 12:04 | PC.SOCIAL ---
Discharge planning: steam table worker spoke to pt's daughter, Shonna, today over the phone, as she had left the hospital for a bit and this worker was not able to connect with her earlier when she was at the hospital. Shonna shared that she and her are living at her mother's town home in [place] [facility] right now while they process selling the town home and they plan to bring her mother back to the [facility] home at discharge from the hospital. Shonna and her will be at the [facility] home with her mother 24 hours a day and will take turns with staying with her if one of them needs to leave for a bit for any reason. They also plan to then bring the pt to her Assisted Living apartment at [facility] on Wednesday. The pt has many services set-up at her Assisted Living Facility; including, meals, pt's daughter helps with setting up medications and pt takes them on her own, checks throughout the day from staff for assistance with dressing, etc. and bedtime checks to help the pt with getting ready for bed and tucking her in. Pt's daughter stated that they would like the pt to resume PT at her home with Melodie from [facility], but are open to using a home care agency for PT/OT, intermediate and home health aide before transitioning back to [facility] for PT/cares, if needed/recommended by the doctor. Social work to follow-up as needed.
[2024-05-17] MEDS: ONDANSETRON 2 MG/ML inj 4 MG IVP (12:38)
--- NOTE | 2024-05-17 14:03 | NUTR.NU ---
RDN with MD consult for nutritional consult. Patient admitted with sepsis and acute cholecystitis. RDN attempted to visit with patient multiple times, however patient and designated caregiver not available. RDN will attempt at later date to visit with patient.
[2024-05-17] MEDS: ROSUVASTATIN CALCIUM 10 MG TABLET 20 MG PO (18:02)
--- NOTE | 2024-05-17 19:59 | PC.NURSE ---
Shift 15-19: Pt alert and cooperative. Pt up with assist of one with gait belt and walker. Pt had no complaints of pain. Pt afebrile and VS WNL.
[2024-05-17] MEDS: clonazePAM 0.5 MG TABLET 0.75 MG PO (21:07)
[2024-05-17] MEDS: ENOXAPARIN 40 MG/0.4 ML INJ SUBCUT (21:08)
[2024-05-18] MEDS: CEFEPIME HCL 2 GM in 0.9 % SODIUM CHLORIDE Mini-bag 100 ML IVPB ×2 (02:36→11:32)
[2024-05-18 02:37] VITALS: BP 142/75; PULSE 86; RESP 16; TEMP 36.9; O2SAT 90
--- NOTE | 2024-05-18 04:33 | PC.NURSE ---
Shift note: Pt alert and oriented. Ambulated with SAB to A1. No fever or pain recorded. Pt continue to have muffled voice. Incontinence to urine. Pt had adequate sleep. Vitally stable.
[2024-05-18] MEDS: metroNIDAZOLE 500 MG/100 ML PIGGYBACK 100 MG IVPB ×2 (06:15→12:10)
[2024-05-18 06:41] LABS: Hematocrit 33.6 % (33.0-51.0); Hemoglobin* 11.1 gm/dL (12.0-16.0); Mean Corpuscular HGB Conc 33 gm/dL (32-36); Mean Corpuscular Hemoglobin 32 pg (26-34); Mean Corpuscular Volume 96 fL (80-100); Platelet Count* 205 K/uL (140-440); Red Blood Count 3.52 m/uL (4.00-5.20); White Blood Count* 6.62 K/uL (4.50-11.00)
[2024-05-18 06:47] LABS: Slide Review Reflex No
[2024-05-18 06:59] LABS: Chloride* 104 mmol/L (96-114); Potassium* 3.6 mmol/L (3.6-5.1); Sodium* 133 mmol/L (135-149)
[2024-05-18 07:02] LABS: Anion Gap 6 mEq/L (7-15); Blood Urea Nitrogen* 12 mg/dL (7-30); Carbon Dioxide* 23 mmol/L (20-32); Creatinine* 0.8 mg/dL (0.5-1.5); Est. Creatinine Clearance* 30.62; Estimated Glomerular Filt Rate 73 ml/min; Glucose* 134 mg/dL (60-115)
[2024-05-18 07:03] LABS: Calcium* 9.6 mg/dL (8.4-10.6)
[2024-05-18 08:00] VITALS: O2SAT 94
[2024-05-18] MEDS: LACTOBACILLUS ACIDOPHILUS 1 TABLET 1 TAB PO (08:18)
[2024-05-18] MEDS: OMEPRAZOLE 20 MG CAPSULE DR PO (08:18)
[2024-05-18 08:21] VITALS: BP 143/79; PULSE 88; RESP 20; TEMP 36.6; O2SAT 94
[2024-05-18] MEDS: METOPROLOL SUCCINATE (XL) 100 MG TAB PO (09:43)
[2024-05-18] MEDS: levETIRAcetam 500 MG TABLET 750 MG PO (09:43)
[2024-05-18] MEDS: SERTRALINE 100 MG TABLET 150 MG PO (09:44)
[2024-05-18 11:05] VITALS: BMI 26.2
--- NOTE | 2024-05-18 11:47 | PM.DS1 ---
DS: Providers Provider Date Seen: 05/18/24 Date of admission: 05/14/24 21:01 Primary care physician: Vikki Cope MD Admitting Clinician: Bridgette Valentine MD Consults: 05/15/24 12:51 Consult to Occupational Therapy [CONS] Routine Comment: Reason(s) for OT Consult:: ADLs Prior to Discharge Any Restrictions?:: No Restrictions Consult to Physical Therapy [CONS] Routine Comment: Reason(s) for PT Consult:: Evaluate and Treat Any Restrictions?:: No Restrictions 05/17/24 09:40 Consult to Nutrition [CONS] Routine Comment: Reason for consult:: Nutritional Consult Attending Physician on discharge: GHADA Becerril, [facility] Date of Discharge: 05/18/24 DS: Diagnosis Discharge Diagnosis (1) Sepsis: Status: Resolved Problem details: RESOLVED - WBC of 16, HR >90, T 100.1, MAP <65 on admission - presumed source: gallbladder, BCx NGTD, UCx pending - Cefepime and Flagyl (05/14) (2) Acute cholecystitis: Status: Acute Problem details: - IV antibiotics as above; General Surgery consulted in ER and recommended transfer for cholecystostomy tube, patient declined - reassuring ultrasound 05/15, continue IV abx, no transfer or aggressive procedures given goals of care 05/17 - fever 100.1 less than 24 hours ago. Patient and daughter would like to continue IV abx, transitioning to oral when fever free 24 hours Patient remained fever free, transitioning from IV antibiotics to oral metronidazole and clindamycin. Outpatient follow-up with PCP. Consider General surgery consult if necessary (3) Acute hypotension: Status: Resolved Problem details: RESOLVED - improved with IV fluids, lactate normal - continue low dose IVFs, current MAP >65 - closer to baseline on hospital day 2 (05/16) 05/17 - acute hypotension resolved, resume home dose Metoprolol (4) Elevated troponin I level: Status: Acute Problem details: - has extensive history of CAD, s/p 4-vessel CABG in 2000, HTN, hyperlipidemia - NSTEMI, suspect demand ischemia given reassuring EKG - asymptomatic - troponin peak at 0.48 - patient declined TTE or further workup 05/15 (5) Hypoxia: Status: Resolved Problem details: RESOLVED - treat with supplemental oxygen, especially in the setting of demand ischemia - stable on RA during the day as of 05/16 (6) Hypertension: Status: Chronic Problem details: - holding home antihypertensives given hypotension - BP starting to increase 05/16, continue to follow closely, restart medications as tolerated - resume Metoprolol 05/17 Resume home medications on discharge, blood pressures reply appropriately. (7) Anemia: Status: Acute Problem details: - acute anemia (admission 12.4 --> 9.4 on hospital day 1, Hgb of 10 on 05/16). Improved to 11.1. - presumably related to dilution/acute illness, no evidence of acute bleeding and normal BUN - on BID PPI DS: Summary Hospital Course Hospital Course: [age] year old female was admitted to the medical floor for for management of sepsis. Initiated on IV antibiotics with significant improvement. Sepsis resolved. Transitioned to oral antibiotics at time of discharge. Returning home and then to [facility] with support in place. Course of care and details as noted above. Remainder of chronic medical comorbidities were monitored and managed with home medications. Status at Discharge Overall status at discharge: patient is progressing back to baseline Time Spent with Patient Time attestation: Total time spent providing and/or coordinating discharge services: Time spent: Greater than 30 minutes Exam Narrative: Exam Narrative: PHYSICAL EXAM General: Pleasant, conversant, NAD Cardiovascular: RRR Pulmonary: No dyspnea Neurological: Alert, answering questions appropriately Skin: Warm, dry. Const: Vital Signs, click to edit/add: Vital Signs - 24 hr 05/17/24 13:00 05/17/24 15:08 05/17/24 15:09 Temperature 98 F 98.0 F Pulse Rate [Pulse Oximeter] 87 93 93 Respiratory Rate 20 16 Blood Pressure [Le ft Arm] 149/83 H Blood Pressure [Ri ght Arm] 125/68 Pulse Oximetry 95 91 Oxygen Delivery Me thod Room Air Room Air Oxygen Flow Rate 05/17/24 15:09 05/17/24 19:00 05/17/24 21:38 Temperature 99 F 98.6 F Pulse Rate [Pulse Oximeter] 85 82 Respiratory Rate 16 16 16 Blood Pressure [Le ft Arm] 123/61 Blood Pressure [Ri ght Arm] 137/67 Pulse Oximetry 91 91 91 Oxygen Delivery Me thod Room Air Room Air Room Air Oxygen Flow Rate 0 0 05/17/24 23:00 05/17/24 23:00 05/18/24 02:37 Temperature 98.4 F Pulse Rate [Pulse Oximeter] 82 86 Respiratory Rate 16 16 16 Blood Pressure [Le ft Arm] 142/75 H Blood Pressure [Ri ght Arm] Pulse Oximetry 91 90 Oxygen Delivery Me thod Room Air Room Air Oxygen Flow Rate 05/18/24 08:00 05/18/24 08:21 Temperature 97.9 F Pulse Rate [Pulse Oximeter] 88 Respiratory Rate 20 Blood Pressure [Le ft Arm] 143/79 H Blood Pressure [Ri ght Arm] Pulse Oximetry 94 94 Oxygen Delivery Me thod Room Air Room Air Oxygen Flow Rate DS: Data Data Completed and Pending Labs on day of discharge: Labs from last 24 hours 05/18/24 06:14 WBC 6.62 RBC 3.52 L Hgb 11.1 L Hct 33.6 MCV 96 MCH 32 MCHC 33 Plt Count 205 Sodium 133 L Potassium 3.6 Chloride 104 Carbon Dioxide 23 Anion Gap 6 L BUN 12 Creatinine 0.8 Estimated Creat Clear 30.62 Estimated GFR 73 Glucose 134 H Calcium 9.6 Preliminary micro results at discharge 05/14/24 19:41 Blood Culture - Preliminary Blood NO GROWTH AFTER 72 HOURS Imaging Abdominal ultrasound: Attestation: I have reviewed the pertinent imaging results. Radiologist's impression: The liver measures 18.4 cm. No intrahepatic mass. Mild intrahepatic biliary duct dilation. Normal patency of the main portal vein with antegrade flow. No IVC clot. Ectatic aorta. There is no evidence of ascites. The gallbladder is of normal size and there are multiple echogenic stones layering within the gallbladder lumen. The gallbladder wall measures 1.9 mm in thickness. The common bile duct measures 9.3 mm in diameter at the level of the sigrid hepatis. The pancreas appears normal. There is no evidence of a stone or hydronephrosis within the right kidney. The right kidney measures 10.0 cm in length. IMPRESSION: Multiple echogenic stones in the gallbladder consistent with cholelithiasis. The common bile duct measures 9.3 millimeters. Mild intrahepatic biliary duct dilation again noted. CT Chest/Ab/Pelvis: Attestation: I have reviewed the pertinent imaging results. Radiologist's impression: Cardiovascular structures: Heart size is normal. Thoracic aorta and main pulmonary artery are normal in caliber. Mediastinum and nikole: No mass or adenopathy. Lungs and pleura: Respiratory motion artifact limits fine detail evaluation of the pulmonary parenchyma. Unchanged size of the right upper lobe 7 mm pulmonary nodule (2/36). Mild bibasilar subsegmental atelectasis. Lungs are otherwise essentially clear. No pleural Chest wall and axilla: No mass or adenopathy. Bones: No suspicious bone lesions. Redemonstrated sternotomy wires. Unremarkable for age. ABDOMEN AND PELVIS: Liver: Unremarkable. Gallbladder and bile ducts: Cholelithiasis of acute without discrete evidence cholecystitis. There is = mild dilatation of the intrahepatic and extrahepatic biliary ducts, with the distal common bile duct measuring up to 10 mm in diameter. No evident choledocholithiasis. Pancreas: Unremarkable. Spleen: Unremarkable. Adrenal glands: Unremarkable. Kidneys: Subcentimeter cortical hypodensities are too small to characterize. No hydronephrosis. Evaluation of the distal ureters is limited by artifact from left total hip arthroplasty. GI tract: Unremarkable. Vascular structures: Unremarkable. Lymph nodes: Unremarkable. Peritoneum/Retroperitoneum/Abdominal Wall: Unremarkable. No free air or significant free fluid. Pelvic Organs: Unremarkable. Bones and superficial soft tissues: Moderate to severe multilevel degenerative changes in the thoracolumbar spine. No suspicious bone lesions. Partially visualized left total hip arthroplasty. Associated artifact limits evaluation of surrounding structures. IMPRESSION: 1. There is cholelithiasis with mild intrahepatic and extrahepatic biliary ductal dilatation. There is no discretely visualized choledocholithiasis though evaluation relatively limited by CT. 2. Otherwise, no evident acute abnormality in the chest, abdomen, or pelvis. Discharge Plan Discharge Disposition: Home, Self-Care Date of Admission: 05/14/24 21:01 Attending Provider on Discharge: Sada Ernst Discharge Medications: New ciprofloxacin HCl 250 mg tablet 250 mg PO BID Qty: 4 0RF metronidazole 500 mg tablet 500 mg PO TID Qty: 6 0RF Continued lidocaine 5 % adhesive patch,medicated 1 patch topical DAILY mirabegron [Myrbetriq] 25 mg tablet extended release 24 hr 25 mg PO DAILY sertraline 100 mg tablet 150 mg PO DAILY albuterol sulfate 2.5 mg /3 mL (0.083 %) solution for nebulization 2.5 mg inhalation Q4H PRN (Reason: wheezing) clonazepam 0.5 mg tablet 0.75 mg PO HS metoprolol succinate 100 mg tablet extended release 24 hr 100 mg PO DAILY amiloride 5 mg tablet 5 mg PO DAILY levetiracetam 250 mg tablet 750 mg PO BID glipizide 2.5 mg tablet extended release 24hr 2.5 mg PO DAILY nitroglycerin 0.4 mg tablet, sublingual 0.4 mg sublingual Q5M PRN omeprazole 20 mg capsule,delayed release(DR/EC) 20 mg PO BID nystatin [Nystop] 100,000 unit/gram powder 1 applic topical BID PRN rosuvastatin 20 mg tablet 20 mg PO QPM Discharge Orders: Discharge Order (Routine); Ordered 05/18/24 Ordered By: Sada Ernst Patient Education: Ciprofloxacin (By mouth), Metronidazole (By mouth), Cholecystitis (GEN) Activity Level: Activity as Tolerated Activity Detail: RESUME PT, INCREASING TO ACUTE STATUS FOR CURRENT NEEDS. Discharge Diet: Other Diet Detail: Recommendations per Nutrition Follow Up Appointments: Vikki Cope MD [Primary Care Provider] - (PCP unavailable during desired time frame) BAL FINE DO [Referring] - 05/22/24 8:05 am ([facility] for follow up appointment. PCP was unavailable during desired time frame) Forms: [employer] Info Instructions
--- NOTE | 2024-05-18 15:22 | PC.NURSE ---
shift note nurse to nurse given to Trisha T due to assignment change
--- NOTE | 2024-05-18 16:18 | PC.SOCIAL ---
Discharge planning: bilingual patient support caseworker faxed new outpatient physical therapy orders to Melodie Garzon at [facility] fax #[phone]. Pt will be discharging home today with her daughter and son-in-law with outpatient physical therapy visits from Melodie to start back up with increased frequency in physical therapy appointments. Social work to follow-up as needed.
== END 2024-05-18 14:56 | disposition home or self-care (01) | DRG 871 ==
LOC: ED 16:13 → MEDSURG 20:18
PROVIDERS: Family Medicine; Physician Assistant; Admitting Provider Family Medicine; Emergency Provider Family Medicine; PCP Family Medicine; Visit Provider Family Medicine
DX: A41.9 Sepsis, unspecified organism (principal); I21.A1 Myocardial infarction type 2; K80.00 Calculus of gallbladder with acute cholecystitis without obstruction; I25.810 Atherosclerosis of coronary artery bypass graft(s) without angina pectoris; R09.02 Hypoxemia; N28.89 Other specified disorders of kidney and ureter; I95.9 Hypotension, unspecified; I12.9 Hypertensive chronic kidney disease with stage 1 through stage 4 chronic kidney disease, or unspecified chronic kidney disease; E11.22 Type 2 diabetes mellitus with diabetic chronic kidney disease; N18.31 Chronic kidney disease, stage 3a; J44.9 Chronic obstructive pulmonary disease, unspecified; F32.9 Major depressive disorder, single episode, unspecified; M06.9 Rheumatoid arthritis, unspecified; Z95.1 Presence of aortocoronary bypass graft; D64.89 Other specified anemias; E78.5 Hyperlipidemia, unspecified
CPT/HCPCS: 36415; 71045; 71260; 74177; 76705; 80048; 80053; 81001; 82962; 83605; 83690; 83735; 84145; 84484; 85025; 85027; 86140; 87040; 87086; 87631; 93005; 94761; 97110; 97116; 97162; 97166; 97530; 97535; 99285; A9270; J0692; J1650; J1836; J2405; J7030; Q9967

== ENCOUNTER 2024-09-12 04:44 | Inpatient (IN) | payer MEDICARE, SELFPAY ==
[2024-09-12] VITALS (38 sets, daily range): BP systolic 90–114; BP diastolic 50–74; PULSE 78–118; RESP 5–32; TEMP 36.4–38.5; O2SAT 77–97; BMI 23.0; BMI 21.9
--- OUTSIDE RECORDS SUMMARY | 2024-09-12 04:46 | XMS_ITS | Clinical Summary ---
Author Organization [employer] [facility] Address [address] [place] [address] Care Team Providers Care Cosmetic Consultant Name Role Phone Vikki Cope MD Primary Care Provide r Allergies Active Allergy Reactions Criticality Noted Date Comments Codeine Confusion,Other - De scribe In Comment Field High 09/12/2007 Penicillins Rash High 05/09/2009 Medications Diabetic Supplies, Miscellan.Indicat ions:Type II or unspecified type diabetes mellitus without mention of complication, not stated as uncontrolled by Injection route. Dispense glucose meter, test strips and lancets covered by patient insurance. Test 2 times per day. 1 Kit PRN 08/13/19 10 Active ONE TOUCH ULTRA TEST strip USE TO TEST TWICE DAILY DIRECTED 200 Strip 2 08/28/19 12 Active blood-glucose meter (BLOOD GLUCOSE MONITOR KIT) Dispense glucose meter, test strips and lancets covered by the patient insurance. Test 2 times per day. 250.00 1 Device 0 06/29/20 13 Active blood-glucose meter (ONE TOUCH ULTRA 2)Indications:Typ e II or unspecified type diabetes mellitus without mention of complication, not stated as uncontrolled Dispense glucose meter, test strips and lancets. Test 1 times per day. One Touch brand as patient had before. 1 Device 0 10/14/19 14 Active acetaminophen (TYLENOL EXTRA STRGTH) 500 mg tablet Take 2 tablets by mouth 3 times daily. Max acetaminophen dose: 4000mg in 24 hrs. 0 05/24/20 18 Active miscellaneous medical supply miscIndications:H ypertension, unspecified type As directed 1 Each. Automatic arm cuff for blood pressure 1 Each 08/11/19 19 Active cholecalciferol (VITAMIN D) 1,000 unit capsule Take one tablet three times a week. 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 270 tablet 3 01/25/20 20 Active aspirin 325 mg tabletIndications :CAD in [place] artery Take 1 Tablet (325 mg) by mouth once daily with a meal. 0 12/11/19 21 Active blood-glucose meterIndications: Diabetes mellitus without complication (HC) Dispense meter, test strips, lancets covered by pt ins. E11.9 NIDDM type II - Test 1 time/day, Freestyle Brand please 1 Device 12/25/19 21 Active ascorbic acid, vitamin C, (Vitamin C) 500 mg tablet Take 500 mg by mouth two times daily. 0 06/24/20 21 Active glucos sul 0XHe-mzs-nsyvm-C- [place] (Glucosamine Chondroitin) 550-30-1 mg cap Take 2 Tablets by mouth once daily. 0 10/01/19 22 Active lutein-zeaxanthin -bilberry ext 20-1-2.2 mg cap Take 1 Tablet by mouth once daily. 0 10/01/19 22 Active Walker - 4 wheelsIndications :Rheumatoid arthritis with negative rheumatoid factor, involving unspecified site (HC) Walker with 4 wheels and a seat and brakes. For home use. Length of need: 99 mos 1 Each 05/05/20 22 Active Magnesium Glycinate 100 mg tabIndications:Hy pomagnesemia Patient takes six 400 mg tablets daily 270 Tablet 11/06/19 23 Active NebulizerIndicati ons:Chronic obstructive pulmonary disease, unspecified COPD type (HC) Nebulizer, disposable neb kit x 4, reuseable neb kit x 1, mask x 1, filters x 1. Frequency of use: daily; Medication: albuterol nebs, 2.5 mg every 4 hours if needed Length of need: 99 months 1 Each 02/05/20 23 Active lidocaine 5 % topical patch Apply 1 Patch on dry, clean, hairless skin once daily. Active nystatin powder (Nystop) powderIndications :Intertrigo Apply topically to affected area(s) three times daily. 180 g 5 10/21/19 24 Active fexofenadine (Aarti Allergy) 60 mg tablet Take 60 mg by mouth once daily in the morning. Active wheelchairIndicat ions:S/p left hip fracture,Decrease d independence with activities of daily living,Periprosth etic fracture around internal prosthetic left hip joint, sequela Wheelchair: power wheelchair: (Swing away Length of need: 99 months 1 Each 12/30/19 24 Active metoprolol succinate (TOPROL XL) 100 mg Sustained-Release tabletIndications :Essential hypertension Take 1 Tablet (100 mg) by mouth once daily. 90 Tablet 3 03/02/20 24 Active glipiZIDE extended-release (GLUCOTROL XL) 2.5 mg Extended-Release tabletIndications :Type 2 diabetes mellitus without complication, without long-term current use of insulin (HC) Take 1 Tablet (2.5 mg) by mouth once daily before a meal. 90 Tablet 3 03/02/20 24 Active omeprazole (PRILOSEC) 20 mg Delayed-Release capsuleIndication s:Chronic GERD Take 1 Capsule (20 mg) by mouth two times daily before meals. 180 Capsule 3 03/02/20 24 Active nitroglycerin (Nitrostat) 0.4 mg sublingual tabletIndications :Chest pain in adult DISSOLVE 1TABLET UNDER THE TONGUE NEEDED FOR CHEST PAIN; MAY REPEAT EVERY 5 MINUTES IF NEEDED 25 Tablet 5 03/02/20 24 Active aMILoride (MIDAMOR) 5 mg tabletIndications :Diabetes mellitus without complication (HC) Take 1 Tablet (5 mg) by mouth once daily. 90 Tablet 3 07/13/20 24 Active rosuvastatin (CRESTOR) 20 mg tabletIndications :Hyperlipidemia, unspecified hyperlipidemia type Take 1 Tablet (20 mg) by mouth at bedtime. 90 Tablet 3 07/13/20 24 Active clonazePAM (KLONOPIN) 0.5 mg tabletIndications :Chorea TAKE 1 AND 1/2 TABLETS BY MOUTH AT BEDTIME 135 Tablet 1 07/19/19 25 Active mirabegron EXTENDED-release (Myrbetriq) 25 mg tabletIndications :Mixed stress and urge urinary incontinence Take 1 Tablet (25 mg) by mouth once daily. 90 Tablet 3 07/24/19 25 Active levETIRAcetam (KEPPRA) 250 mg tabletIndications :[place] Take 3 Tablets (750 mg) by mouth two times daily. 540 Tablet 3 09/05/19 25 Active ferrous gluconate 324 mg (37 mg iron) tabletIndications :Anemia of unknown etiology Take 09/05/19 25 Active hydrocortisone 2.5 % creamIndications: Rash Apply topically to affected area(s) 2 times daily if needed for Itching. 60 g 09/05/19 25 Active sertraline (ZOLOFT) 100 mg tabletIndications :Major depressive disorder, recurrent episode, moderate (HC) Take 1 Tablet (100 mg) by mouth once daily in the morning. 09/05/19 25 Active loperamide (IMODIUM) 2 mg tabletIndications :Acute diarrhea Take 1 tablet 3-5 times per day, 09/05/19 25 Active loperamide (IMODIUM A-D) 2 mg tabletIndications :Acute diarrhea Take 4mg by mouth with 1st loose stool, then 2mg with each subsequent loose stool. Max 16 mg in 24 hrs 48 tablet 1 04/25/20 19 025 Discontin ued(Reord er (E-cancel not sent)) calcium carbonate (CALTRATE) 600 mg calcium (1,500 mg) tablet Take 600 mg by mouth once daily. 10/21/19 24 025 Discontin ued(*Med complete/ Regimen complete/ Level of care change) levETIRAcetam (KEPPRA) 250 mg tabletIndications :Chorea TAKE 3 TABLETS BY MOUTH TWICE DAILY 540 Tablet 3 12/26/19 24 025 Discontin ued(Reord er (E-cancel not sent)) sertraline (ZOLOFT) 50 mg tabletIndications :Major depressive disorder, recurrent episode, moderate (HC) Take 1 Tablet (50 mg) by mouth once daily. Take 1 tablet by mouth once daily in addition to one 100 mg tablet once daily for total dose of 150 mg. 90 Tablet 3 03/02/20 24 025 Discontin ued(*Med complete/ Regimen complete/ Level of care change) sertraline (ZOLOFT) 100 mg tabletIndications :Major depressive disorder, recurrent episode, moderate (HC) Take 1 Tablet (100 mg) by mouth once daily in the morning. In addition to 50 mg tablet for total dose to equal 150 mg 90 Tablet 3 03/02/20 24 025 Discontin ued(Reord er (E-cancel not sent)) ferrous gluconate 324 mg (37 mg iron) tabletIndications :Anemia of unknown etiology Take Wednesday, Wed and Wednesday05/23/20 24 025 Discontin ued(Reord er (E-cancel not sent)) clonazePAM (KLONOPIN) 0.5 mg tabletIndications :Ch[place] TAKE 1 AND 1/2 TABLETS BY MOUTH AT BEDTIME 135 Tablet 1 07/19/19 25 025 Discontin ued(*Med complete/ Regimen complete/ Level of care change) Active Problems Problem Noted Date Diagnosed Date Periprosthetic fracture arou nd internal prosthetic left hip joint 12/29/2023 Chronic obstructive pulmonar y disease, unspecified COPD type 08/24/2023 Stage 3a chronic kidney disease 11/05/2022 Purple toe syndrome of both feet 09/30/2021 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 Onychomycosis 10/06/2016 Hyperlipidemia 02/25/2016 High calcium levels 11/29/2013 Hypophosphatemia 11/29/2013 Fibromyalgia muscle pain 08/05/2012 Vitamin D deficiency 07/11/2009 Hypomagnesemia 07/11/2009 Hypertension 06/05/2009 Chorea 05/30/2009 Spinal stenosis, lumbar kevin on, without neurogenic claudication 05/17/2009 Degeneration of lumbar or lumbosacral interverte bral disc 05/17/2009 Anxiety state, unspecified 01/25/2009 Major depressive disorder, recurrent episode, mo derate 02/01/2008 Acute myocardial infarction of other specified sites, subsequent episode of care 10/01/2006 Rheumatoid arthritis(714.0) 10/01/2006 Type II or unspecified type diabetes mellitus without mention of complication, not stated as uncontrolled 12/15/2005 Resolved Problems Problem Noted Date Diagnosed Date Resolved Date Serum calcium elevated 06/25/200905/13 Drug-induced dystonia 05/09/20092008 Dyskinesia, acute 05/09/2009 05/30/2009 Other and unspecified hyperlipidemia 10/01/2006 02/25/2016 Headache(784.0) 10/01/2006 05/13/2011 Encounters Date Type Department Care Team Description 09/05/2024 11:30 AM BATTERY ASSEMBLER PLASTIC Office Visit [facility] [address] [place] [address] [phone] Vikki Cope MD Follow Up (Weight, B/P and blood sugars/Daughter concerned about side effects of medications or C-diff from antibiotics in the past/Has a rash); Serious Illness Conversation 09/05/2024 Travel 09/04/2024 Telephone [facility] [address] [place] [address] Vikki Cope MD Weight 09/01/2024 Nurse Triage [facility] [address] [place] [address] Vikki Cope MD Appointment Request 07/18/2024 Refill [facility] [address] [place] [address] Vikki Cope MD Refill Request (KLONOPIN) 07/13/2024 12:35 PM BATTERY ASSEMBLER PLASTIC Office Visit [facility] [address] [place] [address] Vikki Cope MD Lab (Blood work ); Follow Up (Cholecystitis); Medication Management 07/13/2024 Travel from Last 3 Months Immunizations Name Administration Dates Next Due COVID-19 vaccine (Pfizer-Bio NTech 30mcg/0.3mL) 12YO+ BIVALENT PF, MDV 05/05/2022 COVID-19 vaccine (Pfizer-Bio NTech 30mcg/0.3mL) 12YO+ SARAH-SUCROSE PF, MDV 12/04/2021 COVID-19 vaccine (Pfizer-Bio NTech 30mcg/0.3mL) PF, MDV 06/20/2021,11/26/2020,11/05/2020 Influenza, IIV4 08/06/2023,06/24/2022,05/13/2021 Td (Age >=7 Years) 05/20/2022 Family History Medical History Relation Name Comments Diabetes Maternal Aunt Relation Name Status Comments Maternal Aunt Social History Tobacco Use Types Packs/Day Years Used Date Smoking Tobacco: Former Cigarettes 2 30 0 07/19/1970 - 07/19/2000 Smokeless Tobacco: Former Quit: 07/19/2000 Tobacco Cessation:Counseling Given: Yes Comments:prior 1 ppd for 30-40 years quit 2000 Alcohol Use Standard Drinks/Week Comments No 0 (1 standard drink = 0.6 oz pur e alcohol) PHQ-2 Answer Date Recorded PHQ-2 TOTAL SCORE 6 03/02/2024 Social Connections Answer Date Recorded Do you often feel lonely or isolated from those around you? 0 03/02/2024 Financial Resource Strain Answer Date R ecorded Difficulty of Paying Living Expenses 3 03/02/2024 Difficulty of Paying Living Expenses Not on file 03/02/2024 Food Insecurity Answer Date Recorded Do you worry your food will run out before you are able to buy more? 1 03/02/2024 Transportation Needs Answer Date Record ed Does lack of transportation keep you from medica l appointments? 1 03/02/2024 Does lack of transportation keep you from work, meetings or getting things that you need? 1 03/02/2024 Housing Stability Answer Date Recorded What is your housing situation today? 1 03/02/2024 Utilities Answer Date Recorded Do you have trouble paying f or utilities (for example, heat, electricity, water, phone)? 1 03/02/2024 Comments No Sex and Gender Information Value Date Recorded Sex Assigned at Not on file Legal Sex Female 6:24 AM BATTERY ASSEMBLER [employer]IC Gender Identity Not on file Sexual Orientation Not on file Obstetrics History Last Filed Vital Signs Vital Sign Reading Time Taken Comments Blood Pressure 109/64 09/05/2024 12:05 PM BATTERY ASSEMBLER PLASTIC Pulse 80 09/05/2024 12:05 PM BATTERY ASSEMBLER PLASTIC Temperature 37 C (98.6 F) 05/23/2024 10:41 AM BATTERY ASSEMBLER PLASTIC Respiratory Rate 18 08/01/2019 10:4 2 AM BATTERY ASSEMBLER PLASTIC Oxygen Saturation 94% 09/05/2024 12: 05 PM BATTERY ASSEMBLER PLASTIC Inhaled Oxygen Concentration - - Weight 53.9 kg (118 lb 12.8 oz) 025 12:05 PM BATTERY ASSEMBLER PLASTIC Height 149.9 cm (4' 11) 03/02/2024 10: 44 AM CDT Body Mass Index 23.99 03/02/2024 10:44 AM CDT Plan of Treatment Upcoming Encounters Date Type Department Care Team (Late st Contact Info) Description 10/10/2024 2:15 PM CDT Office Visit [facility] [address] [place] [address] Vikki Cope MD [address] [place] [address] Health Maintenance Due Date Last Done Comments Tdap 1951 Pneumococcal series for age 50+ (1 of 2 - PCV) 1959 Zoster (shingles) series for age 50+ (1 of 2) 1990 RSV vaccine for adults or (1 - 1-dose 75+ series) 2015 Influenza for age 65+ 03/19/2024 08/06/2023 , 06/24/2022, 05/13/2021 BMI (ht and wt on same day) for age 18+ 03/02/2025 03/02/2024, 11/05/2022, 05/13/2021, Additional history exists Depression screening for age 12+ 03/02/2025 03/02/2024, 11/05/2022, 11/03/2022, Additional history exists Medicare Wellness for age 65+ 02/15/2026 Postponed from 2005 (Patient discretion) Tetanus booster 05/20/2032 05/20/2022, 11/17 (Postponed) DEXA/DXA scan for age 65+ Addressed 12/05/2010 (Dec lined) Overridden with the intention of not completing the topic COVID-19 vaccine series Completed 05/08/20, 05/05/2022, 12/04/2021, Additional history exists Procedures Procedure Name Priority Date/Time Associated Diagnosis Comments MAGNESIUM Routine 07/13/2024 2:15 PM BATTERY ASSEMBLER PLASTIC Gitelman disease BASIC METABOLIC PANEL Routine 07/13/2024 2:15 PM BATTERY ASSEMBLER PLASTIC Gitelman disease TSH WITH REFLEX Routine 07/13/2024 2:15 PM BATTERY ASSEMBLER PLASTIC Chronic diarrhea Nutritional anemia, unspecified VITAMIN D 25 (DEFICIENCY) Routine 07/13/2024 2:15 PM BATTERY ASSEMBLER PLASTIC Vitamin D deficiency CBC WITH AUTO DIFFERENTIAL Routine 07/13/2024 2:15 PM BATTERY ASSEMBLER PLASTIC Nutritional anemia, unspecified VITAMIN B12 Routine 07/13/2024 2:15 PM BATTERY ASSEMBLER PLASTIC Nutritional anemia, unspecified PHOSPHORUS Routine 07/13/2024 2:15 PM BATTERY ASSEMBLER PLASTIC Gitelman disease FERRITIN Routine 07/13/2024 2:15 PM BATTERY ASSEMBLER PLASTIC Nutritional anemia, unspecified from Last 3 Months Results * TSH WITH REFLEX (07/13/2024 2:15 PM BATTERY ASSEMBLER PLASTIC) TSH W/REFLEX TO FT4 1.69 0.40 - 4.50 mIU/L [facility] Blood BLOOD SPECIMEN / Unknown 07/13/2024 2:15 PM BATTERY ASSEMBLER PLASTIC 07/13/2024 2:15 PM BATTERY ASSEMBLER PLASTIC Vikki Cope MD CHEMISTRY Final Result Performing Organization Address City/State/[facility] Co de Phone Number [facility] [address] [place] [address], [facility] [address] [place] [address] * (ABNORMAL) VITAMIN D 25 (DEFICIENCY) (07/13/2024 2:15 PM BATTERY ASSEMBLER PLASTIC) VITAMIN D,25-OH,TOTAL,IA 23(L) 30 - 100 ng/mL [facility] Comment: Vitamin D Status 25-OH Vitamin D: Deficiency: <20 ng/mL Insufficiency: 20 - 29 ng/mL Optimal: > or = 30 ng/mL For 25-OH Vitamin D testing on patients on D2-supplementation and patients for whom quantitation of D2 and D3 fractions is required, the [facility]() 25-OH VIT D, (D2,D3), LC/MS/MS is recommended: order code 67572 (patients >2yrs). See Note 1 Note 1 For additional information, please refer to http://education.Cohuman.Lucidity (MemberRx)/faq/IEI064 (This link is being provided for informational/ educational purposes only.) Blood BLOOD SPECIMEN / Unknown 07/13/2024 2:15 PM BATTERY ASSEMBLER PLASTIC 07/13/2024 2:15 PM BATTERY ASSEMBLER PLASTIC Vikki Cope MD SEND OUTS Final Result [employer] [facility] [address] [place] [address], [facility] [address] [place] [address] * CBC AND DIFFERENTIAL (07/13/2024 2:15 PM BATTERY ASSEMBLER PLASTIC) Pathologist [facility] WHITE BLOOD CELL COUNT 7.4 3.8 - 10.8 Thousand/u L [facility] RED BLOOD CELL COUNT 3.99 3.80 - 5.10 Million/uL [facility] HEMOGLOBIN 12.7 11.7 - 15.5 g/dL [facility] HEMATOCRIT 38.8 35.0 - 45.0 % [facility] MCV 97.2 80.0 - 100.0 fL [facility] MCH 31.8 27.0 - 33.0 pg [facility] MCHC 32.7 32.0 - 36.0 g/dL [facility] Comment: For adults, a slight decrease in the calculated MCHC value (in the range of 30 to 32 g/dL) is most likely not clinically significant; however, it should be interpreted with caution in correlation with other red cell parameters and the patient's clinical condition. RDW 12.7 11.0 - 15.0 % [facility] PLATELET COUNT 247 140 - 400 Thousand/u L [facility] MPV 10.6 7.5 - 12.5 fL [facility] ABSOLUTE NEUTROPHILS 4,951 1,500 - 7,800 cells/uL [facility] ABSOLUTE LYMPHOCYTES 1,613 850 - 3,900 cells/uL [facility] ABSOLUTE MONOCYTES 533 200 - 950 cells/uL [facility] ABSOLUTE EOSINOPHILS 252 15 - 500 cells/uL [facility] ABSOLUTE BASOPHILS 52 0 - 200 cells/uL [facility] NEUTROPHILS 66.9 % [facility] LYMPHOCYTES 21.8 % [facility] MONOCYTES 7.2 % [facility] EOSINOPHILS 3.4 % [facility] BASOPHILS 0.7 % [facility] Blood BLOOD SPECIMEN / Unknown 07/13/2024 2:15 PM BATTERY ASSEMBLER PLASTIC 07/13/2024 2:15 PM BATTERY ASSEMBLER PLASTIC Vikki Cope MD HEMATOLOGY Final Result [facility] [address] [place] [address], [place] [phone] [facility] [address] [place] [address] * PHOSPHORUS (07/13/2024 2:15 PM BATTERY ASSEMBLER PLASTIC) PHOSPHATE ( PHOSPHORUS) 3.2 2.1 - 4.3 mg/dL [facility] Blood BLOOD SPECIMEN / Unknown 07/13/2024 2:15 PM BATTERY ASSEMBLER PLASTIC 07/13/2024 2:15 PM BATTERY ASSEMBLER PLASTIC Vikki Cope MD CHEMISTRY Final Result [employer] [facility] [address] [place] [address], [facility] [address] [place] [address] * MAGNESIUM (07/13/2024 2:15 PM BATTERY ASSEMBLER PLASTIC) MAGNESIUM 1.8 1.5 - 2.5 mg/dL [facility] Blood BLOOD SPECIMEN / Unknown 07/13/2024 2:15 PM BATTERY ASSEMBLER PLASTIC 07/13/2024 2:15 PM BATTERY ASSEMBLER PLASTIC Vikki Cope MD CHEMISTRY Final Result Performing Organization Address [facility] de Phone Number [facility] [address] [place] [address], [place] [phone] [facility] [address] [place] [address] * FERRITIN (07/13/2024 2:15 PM BATTERY ASSEMBLER PLASTIC) [facility] FERRITIN 72 16 - 288 ng/mL [facility] Blood BLOOD SPECIMEN / Unknown 07/13/2024 2:15 PM BATTERY ASSEMBLER PLASTIC 07/13/2024 2:15 PM BATTERY ASSEMBLER PLASTIC us Vikki Cope MD CHEMISTRY Final Result Performing Organization Address [facility] de Phone Number [facility] [address] [place] [address], [place] [phone] [facility] [address] [place] [address] * VITAMIN B12 (07/13/2024 2:15 PM BATTERY ASSEMBLER PLASTIC) [facility] VITAMIN B12 353 200 - 1,100 pg/mL [facility] Comment: Please Note: Although the reference range for vitamin B12 is 200-1100 pg/mL, it has been reported that between 5 and 10% of patients with values between 200 and 400 pg/mL may experience neuropsychiatric and hematologic abnormalities due to occult B12 deficiency; less than 1% of patients with values above 400 pg/mL will have symptoms. Blood BLOOD SPECIMEN / Unknown 07/13/2024 2:15 PM BATTERY ASSEMBLER PLASTIC 07/13/2024 2:15 PM BATTERY ASSEMBLER PLASTIC us Vikki Cope MD CHEMISTRY Final Result Performing Organization Address [facility] Co de Phone Number [facility] [address] [place] [address], [place] [phone] [facility] [address] [place] [address] * (ABNORMAL) BASIC METABOLIC PANEL (07/13/2024 2:15 PM BATTERY ASSEMBLER PLASTIC) GLUCOSE 119(H) 65 - 99 mg/dL [facility] Comment: Fasting reference interval For someone without known diabetes, a glucose value between 100 and 125 mg/dL is consistent with prediabetes and should be confirmed with a follow-up test. UREA NITROGEN (BUN) 18 7 - 25 mg/dL [facility] CREATININE 0.91 0.60 - 0.95 mg/dL [facility] EGFR 62 > OR = 60 mL/min/1. 73m2 [facility] BUN/CREATININE RATIO SEE NOTE: 6 - 22 (calc) [facility] Comment: Not Reported: BUN and Creatinine are within reference range. SODIUM 137 135 - 146 mmol/L [facility] POTASSIUM 4.2 3.5 - 5.3 mmol/L [facility] CHLORIDE 101 98 - 110 mmol/L [facility] CARBON DIOXIDE 27 20 - 32 mmol/L [facility] ELECTROLYTE BALANCE 9 7 - 17 mmol/L (calc) [facility] CALCIUM 10.3 8.6 - 10.4 mg/dL [facility] Blood BLOOD SPECIMEN / Unknown 07/13/2024 2:15 PM BATTERY ASSEMBLER PLASTIC 07/13/2024 2:15 PM BATTERY ASSEMBLER PLASTIC Vikki Cope MD CHEMISTRY Final Result [employer] [facility] [address] [place] [address], [facility] [address] [place] [address] from Last 3 Months Insurance MEDICARE PART A HB ONLY BLUE CROSS COUNCIL BLUE HB ONLY BLUE CROSS MEDICARE ADVANTAGE MR Advance Directives Documents on File Type Date Recorded Patient Business Systems Consultant Expl anation POLST 01/27/2024 Healthcare Directive 08/15/2016 017 Healthcare Directive 11/30/2013 1:21 PM [facility], 07/30/2004 * Full Code (Latest Code Status on File) Date Activated Date Inactivated Comments 05/09/2009 8:42 PM 05/12/2009 5:02 PM Care Teams Cosmetic Consultant Relationship Specialty Start Date End Date Vikki Cope MD [address] [place] [address] PCP - General 11/01/05
--- NOTE | 2024-09-12 04:59 | CRLHL7_ITS ---
For Patients: As a result of the Century Cures Act, medical imaging exams and procedure reports are released immediately into your electronic medical record. You may view this report before your referring provider. If you have questions, please contact your health care provider. INDICATION: Dyspnea COMPARISON: May 14, 2024 TECHNIQUE: PA and lateral views of the chest were acquired FINDINGS: TUBES AND LINES: None. HEART AND MEDIASTINUM: Enlarged heart. Sternotomy.. LUNGS AND PLEURAL SPACES: Interstitial, vascular and alveolar findings likely representing interstitial and alveolar edema. A diffuse inflammatory process accounting for this is also possible.No large effusions. No pneumothorax OSSEOUS STRUCTURES: Demineralization, degenerative changes and kyphosis. IMPRESSION: Findings likely due to interstitial and alveolar edema. A diffuse inflammatory process accounting for this is also possible. Enlarged heart. Sternotomy. No large effusions. Dictated by Rajeev Guidry MD @ 09/12/2024 5:31:09 AM (Electronically Signed)
--- NOTE | 2024-09-12 05:07 | PC.NURSE ---
Pt to CT-expressing her concern to staff that she just 3ant to . Daughter at [facility]
--- NOTE | 2024-09-12 05:10 | ED_ITS ---
HPI - SOB/Dyspnea General Date Seen: 09/12/24 Chief Complaint: Shortness of Breath/Dyspnea Stated Complaint: Respiratory Distress Time Seen by Provider: 09/12/24 04:58 Source: patient, family, EMS, RN notes reviewed and old records reviewed Mode of arrival: EMS Limitations: no limitations History of Present Illness HPI Narrative: Patient is an 84-year-old female brought in by EMS tonight after they were called for shortness of breath and leg fill. Her saturations were 68% on room air, she is not on chronic oxygen, she tells me she became acutely short of breath tonight, felt her great earlier in the night. Denies any significant pain associated with this. Just she can not catch her breath. They did give her and nebulize treatment of DuoNeb on the way in along with some Zofran his seem like she was retching. She denies any chest pain, she was recently hospitalized in 2023 at this institution for cholecystitis. She declined transfer at that point. She is DNR DNI, past history of Gitelman syndrome. Sees Vikki Cope MD at [facility]. Past history of COPD, past history of CABG in 2000. elicited complaint: shortness of breath Exacerbating factors: lying flat Relieving factors: bronchodilators and upright position Known history of: COPD Treatment prior to arrival: oxygen and bronchodilator Related Data Home oxygen amount: none Home Medications ?Medication ?Instructions ?Recorded ?Confirmed albuterol sulfate 2.5 mg/3 mL 2.5 mg inhalation Q4H PRN wheezing 08/28/23 05/14/24 (0.083 %) solution for nebulization amiloride 5 mg tablet 5 mg PO DAILY 08/28/23 05/14/24 clonazepam 0.5 mg tablet 0.75 mg PO HS 08/28/23 05/15/24 glipizide 2.5 mg tablet, extended 2.5 mg PO DAILY 08/28/23 05/14/24 release 24 hr levetiracetam 250 mg tablet 750 mg PO BID 08/28/23 05/14/24 metoprolol succinate 100 mg 100 mg PO DAILY 08/28/23 05/14/24 tablet,extended release 24 hr nitroglycerin 0.4 mg sublingual 0.4 mg sublingual Q5M PRN 08/28/23 05/14/24 tablet nystatin 100,000 unit/gram topical 1 applic topical BID PRN 08/28/23 05/14/24 powder (Nystop) omeprazole 20 mg capsule,delayed 20 mg PO BID 08/28/23 05/14/24 release rosuvastatin 20 mg tablet 20 mg PO QPM 08/28/23 05/14/24 lidocaine 5 % topical patch 1 patch topical DAILY 05/14/24 05/14/24 mirabegron 25 mg tablet,extended 25 mg PO DAILY 05/14/24 05/14/24 release 24 hr (Myrbetriq) sertraline 100 mg tablet 150 mg PO DAILY 05/15/24 05/15/24 Previous Rx's ?Medication ?Instructions ?Recorded ciprofloxacin HCl 250 mg tablet 250 mg PO BID #4 tabs 05/18/24 metronidazole 500 mg tablet 500 mg PO TID #6 tabs 05/18/24 Allergies Allergy/AdvReac Type Severity Reaction Status Date / Time codeine Allergy Intermediate Verified 03/15/24 10:59 Penicillins Allergy Intermediate Verified 03/15/24 10:59 Review of Systems Status of ROS: Reports: 10 or more systems reviewed and unremarkable except as noted in History and below [facility] Medical History Elevated troponin I level ?R79.89 - Other specified abnormal findings of blood chemistry (ICD-10) Periprosthetic fracture around internal prosthetic left hip joint ?M97.02XA - Periprosthetic fracture around internal prosthetic left hip joint, initial encounter (ICD-10) COPD (chronic obstructive pulmonary disease) ?J44.9 - Chronic obstructive pulmonary disease, unspecified (ICD-10) Stage 3a chronic kidney disease ?N18.31 - Chronic kidney disease, stage 3a (ICD-10) Purple toe syndrome of both feet ?I75.023 - Atheroembolism of bilateral lower extremities (ICD-10) Hyperlipidemia ?E78.5 - Hyperlipidemia, unspecified (ICD-10) Hypophosphatemia ?E83.39 - Other disorders of phosphorus metabolism (ICD-10) High calcium levels ?E83.52 - Hypercalcemia (ICD-10) Anxiety state ?F41.1 - Generalized anxiety disorder (ICD-10) Fibromyalgia muscle pain ?M79.7 - Fibromyalgia (ICD-10) Hypomagnesemia ?E83.42 - Hypomagnesemia (ICD-10) Vitamin D deficiency ?E55.9 - Vitamin D deficiency, unspecified (ICD-10) 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 (ICD-10) Degeneration of lumbar or lumbosacral intervertebral disc ?M51.379 - Other intervertebral disc degeneration, lumbosacral region without mention of lumbar back pain or lower extremity pain (ICD-10) Spinal stenosis, lumbar region without neurogenic claudication ?M48.061 - Spinal stenosis, lumbar region without neurogenic claudication (ICD-10) Major depressive disorder ?F32.9 - Major depressive disorder, single episode, unspecified (ICD-10) Rheumatoid arthritis ?M06.9 - Rheumatoid arthritis, unspecified (ICD-10) Myocardial infarction ?I21.9 - Acute myocardial infarction, unspecified (ICD-10) Muscle weakness ?M62.81 - Muscle weakness (generalized) (ICD-10) Fracture of clavicle ?S42.009A - Fracture of unspecified part of unspecified clavicle, initial encounter for closed fracture (ICD-10) Counseling regarding advanced directives (08/15/16) ?Z71.89 - Other specified counseling (ICD-10) Acute delirium ?R41.0 - Disorientation, unspecified (ICD-10) Acute confusion ?R41.0 - Disorientation, unspecified (ICD-10) Leukocytosis ?D72.829 - Elevated white blood cell count, unspecified (ICD-10) Seizure ?R56.9 - Unspecified convulsions (ICD-10) 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 - Hypomagnesemia (ICD-10) ?E87.6 - Hypokalemia (ICD-10) Hypertension ?I10 - Essential (primary) hypertension (ICD-10) 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 ?I25.810 - Atherosclerosis of coronary artery bypass graft(s) without angina pectoris (ICD-10) Type 2 diabetes mellitus ?E11.9 - Type 2 diabetes mellitus without complications (ICD-10) Closed fracture of left hip (08/29/23) ?S72.002A - Fracture of unspecified part of neck of left femur, initial encounter for closed fracture (ICD-10) Surgical History H/O: hysterectomy (~1985) ?Z90.710 - Acquired absence of both cervix and uterus (ICD-10) S/P CABG x 4 (~2000) ?Z95.1 - Presence of aortocoronary bypass graft (ICD-10) History of open reduction and internal fixation (ORIF) procedure (08/31/23) ?Z98.890 - Other specified postprocedural states (ICD-10) 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 Since coming home from rehab of L hip fracture in the spring, her daughter and son-in-law have been staying with her and getting the house ready to sell. They have plans to move her into [place] in [place] soon. H/o smoking 60 pack years, quit in 2000. Doesn't drink alcohol. DNR/DNI. What is your current living situation?: I presently have a place to live Problems where you live: no known problems Problems where you live details: NA In the past 12 months, utilities in danger of being shut off: no In past 12 months, lack of transportation kept you from medical appts, meetings, work, or getting things needed for daily living: no In the past 12 mos, have been you worried that your food would run out before you had money to buy more?: never true In the past 12 mos, the food you bought just didn't last and you didn't have money to buy more?: never true Are you following a special diet: Yes (minced and moist texture at home) Highest level of school completed/degree received: high school graduate Smoking Status: Never smoker Do you use any of these nicotine containing products: None Second hand tobacco smoke exposure: No How often do you have a drink containing alcohol: never How often do you have six or more drinks on one occasion: Never AUDIT-C Alcohol total score: 0 Non-prescribed substance use: denies use Caffeine: Yes How often does anyone, including family, friends and others, physically hurt you : never How often does anyone, including family, friends and others, insult or talk down to you: never How often does anyone, including family, friends and others, threaten you with harm: never How often does anyone, including family, friends and others, scream or curse at you: never service: No Exam Narrative: Exam Narrative: I find her in room 8, she is conversant to me normally, saturations on initially on room air 70%, she comes up to 92% on 10 L OxyMask. Pupils equal round reactive to light there is no scleral icterus redness TMs are normal oropharynx is normal, very kyphotic chest, crackles in bases to mid scapula bilaterally, no wheezes are noted heart sounds no clicks murmurs or gallops, abdomen is soft, no tenderness to palpation, midline well-healed incision is notable. And there is also a midline incision her chest that is healed nicely. Purplish feet bilaterally, with 2+ edema noted on her legs bilaterally, she moves all extremities independently and well. Const: Vital Signs, click to edit/add: Vital Signs - 24 hr 09/12/24 04:54 09/12/24 04:56 09/12/24 04:57 Temperature 101.3 F H Pulse Rate Pulse Rate [Pulse Oximeter] 111 H Respiratory Rate 22 22 Blood Pressure Blood Pressure [Ri ght Upper Arm] 110/70 Pulse Oximetry 77 L 93 92 Oxygen Delivery Me thod Room Air OxyMask OxyMask Oxygen Flow Rate 10 10 Fraction of Inspir ed Oxygen 09/12/24 04:58 09/12/24 04:58 09/12/24 04:58 Temperature 99.2 F Pulse Rate Pulse Rate [Pulse Oximeter] 105 H Respiratory Rate 22 22 Blood Pressure Blood Pressure [Ri ght Upper Arm] 114/74 Pulse Oximetry 92 92 93 Oxygen Delivery Me thod OxyMask High Flow Nasal Ca nnula Oxygen Flow Rate 10 20 Fraction of Inspir ed Oxygen 40 09/12/24 05:09 09/12/24 05:12 09/12/24 05:18 Temperature 99.2 F Pulse Rate 104 H Pulse Rate [Pulse Oximeter] Respiratory Rate 14 Blood Pressure 106/67 Blood Pressure [Ri ght Upper Arm] Pulse Oximetry 93 Oxygen Delivery Me thod Oxygen Flow Rate Fraction of Inspir ed Oxygen 40 09/12/24 05:29 09/12/24 05:32 09/12/24 06:02 Temperature Pulse Rate 102 H 107 H 111 H Pulse Rate [Pulse Oximeter] Respiratory Rate 22 24 27 H Blood Pressure 98/56 L 114/64 100/61 Blood Pressure [Ri ght Upper Arm] Pulse Oximetry 94 90 91 Oxygen Delivery Me thod High Flow Nasal Ca nnula Oxygen Flow Rate Fraction of Inspir ed Oxygen 09/12/24 06:08 09/12/24 06:21 09/12/24 06:30 Temperature Pulse Rate 118 H Pulse Rate [Pulse Oximeter] Respiratory Rate 22 Blood Pressure Blood Pressure [Ri ght Upper Arm] Pulse Oximetry 88 Oxygen Delivery Me thod Oxygen Flow Rate Fraction of Inspir ed Oxygen 35 30 09/12/24 06:32 09/12/24 06:32 09/12/24 06:33 Temperature Pulse Rate 118 H 115 H Pulse Rate [Pulse Oximeter] Respiratory Rate 21 5 L Blood Pressure 105/64 Blood Pressure [Ri ght Upper Arm] Pulse Oximetry 91 85 L Oxygen Delivery Me thod High Flow Nasal Ca nnula Oxygen Flow Rate 30 Fraction of Inspir ed Oxygen 35 35 09/12/24 06:45 09/12/24 06:45 09/12/24 07:00 Temperature Pulse Rate 113 H 112 H Pulse Rate [Pulse Oximeter] Respiratory Rate 14 24 Blood Pressure Blood Pressure [Ri ght Upper Arm] Pulse Oximetry 89 90 Oxygen Delivery Me thod Oxygen Flow Rate Fraction of Inspir ed Oxygen 35 09/12/24 07:01 09/12/24 07:02 09/12/24 07:15 Temperature Pulse Rate 111 H 113 H 110 H Pulse Rate [Pulse Oximeter] Respiratory Rate 17 19 12 Blood Pressure 94/55 L Blood Pressure [Ri ght Upper Arm] Pulse Oximetry 90 92 90 Oxygen Delivery Me thod Oxygen Flow Rate Fraction of Inspir ed Oxygen 09/12/24 07:30 09/12/24 07:32 Temperature Pulse Rate 114 H 114 H Pulse Rate [Pulse Oximeter] Respiratory Rate 32 H 11 L Blood Pressure 97/53 L Blood Pressure [Ri ght Upper Arm] Pulse Oximetry 90 90 Oxygen Delivery Me thod Oxygen Flow Rate Fraction of Inspir ed Oxygen Documenting provider has reviewed patient's vital signs: yes Course Reevaluation(s) Time of Reevaluation #1: 07:32 Reevaluation #1: I reviewed with the patient she is doing better, she is down to 35 present on 35 high flow, sating anywhere from 90-92%, I ordered some Levaquin along with aspirin, for her possible pneumonia, her D-dimer returned elevated, I think given her past history of DVTs and pulmonary emboli, I discussed with her and after some coaxing I was able to convince her to do the CT scan, as it would ch bushra the management. She still tells me that she will not go to the [facility], for a transfer, she wants to be cared for here in [place], she understands that we do not of pulmonology, Cardiology, and her daughter understands that she has vehemently DNR DNI. Time of Reevaluation #2: 07:48 Reevaluation #2: I spoke to the inpatient hospitalist Dr. Rudd about this patient, he accepted her it admission, with acute hypoxic respiratory failure, I suspect that this is acute most likely from CHF could not rule out a pulmonary embolism, and that is why she is getting the CT, he will review this and treat appropriately, I also covered her with some Levaquin while she was here, for possible bacterial cause but again I do not think this is likely given her acute episode. Her troponin is elevated also at 0.21 it has been elevated in the past, and again she declines transfer, wants to just stay in [place] actually was really tough for me to convince her to have anything done at all. Vital Signs Vital signs: Initial Vital Signs Temperature 101.3 F H 09/12/24 04:54 Temperature Source Temporal Artery Scan 09/12/24 04:54 Pulse Rate 111 H 09/12/24 04:54 Respiratory Rate 22 09/12/24 04:54 Respiratory Effort Spontaneous, Labored 09/12/24 04:54 Respiratory Depth Normal 09/12/24 04:54 Blood Pressure 110/70 09/12/24 04:54 Blood Pressure Mean 83 09/12/24 04:54 Blood Pressure Position Sitting 09/12/24 04:54 Pulse Oximetry 77 L 09/12/24 04:54 Oxygen Delivery Method Room Air 09/12/24 04:54 Vital Signs Temperature 101.3 F H 09/12/24 04:54 Pulse Rate 111 H 09/12/24 04:54 Respiratory Rate 22 09/12/24 04:54 Blood Pressure 110/70 09/12/24 04:54 Pulse Oximetry 77 L 09/12/24 04:54 Oxygen Delivery Method Room Air 09/12/24 04:54 Temperature 99.2 F 09/12/24 05:09 Pulse Rate 114 H 09/12/24 07:32 Respiratory Rate 11 L 09/12/24 07:32 Blood Pressure 97/53 L 09/12/24 07:32 Pulse Oximetry 90 09/12/24 07:32 Oxygen Delivery Method High Flow Nasal Cannula 09/12/24 06:32 Oxygen Flow Rate 30 09/12/24 06:32 Fraction of Inspired Oxygen 35 09/12/24 06:45 Medications Administered Medications: Discontinued Medications Generic Name Dose Route Start Last Admin Trade Name Pavanq PRN Reason Stop Dose Admin Albuterol 2.5 mg 09/12/24 04:58 09/12/24 05:27 Albuterol Sulfate 2.5 Mg/3 Ml Vial.Neb NEB 09/12/24 04:59 2.5 mg ONCE ONE Administration Aspirin 324 mg 09/12/24 07:28 09/12/24 07:15 Aspirin 81 Mg Tab.Chew PO 09/12/24 07:29 324 mg ONCE ONE Administration Furosemide 40 mg 09/12/24 05:17 09/12/24 05:27 Furosemide 10 Mg/Ml Inj IVP 09/12/24 05:18 40 mg ONCE ONE Administration MDM - SOB/Dyspnea MDM Narrative Medical decision making narrative: Life-threatening differential diagnosis includes occluded COPD exacerbation, pulmonary edema, acute coronary syndromes, pulmonary embolism, pneumonia, and pneumothorax. Other differential diagnosis considerations include asthma, bronchitis as well as other etiologies Differential Diagnosis Differential diagnosis: Likely acute exacerbation of chronic obstructive airways disease, congestive heart failure, community acquired pneumonia, asthma with exacerbation and pulmonary embolism Medical Records Attestation: I reviewed the patient's medical records. Lab Data Attestation: I reviewed the patient's lab results. Labs: Lab Results 09/12/24 09/12/24 Range/Units 04:53 05:25 WBC 12.50 H (4.50-11.00) K/uL RBC 3.98 L (4.00-5.20) m/uL Hgb 12.3 (12.0-16.0) gm/dL Hct 38.1 (33.0-51.0) % MCV 96 (80-100) fL MCH 31 (26-34) pg MCHC 32 (32-36) gm/dL RDW Coeff of Gilbert 12.2 (11.5-15.5) % Plt Count 214 (140-440) K/uL Neut % (Auto) 89.9 H (42.0-72.0) % Lymph % (Auto) 3.6 L (20-44) % Coffey % (Auto) 4.7 (0.0-11.0) % Eos % (Auto) 1.4 (0.0-7.0) % Baso % (Auto) 0.2 (0.0-3.0) % Neut # (Auto) 11.20 H (1.7-7.0) K/uL Lymph # (Auto) 0.50 L (0.90-2.90) K/uL Coffey # (Auto) 0.60 (0.00-0.90) K/UL Eos # (Auto) 0.20 (0.00-0.50) K/uL Baso # (Auto) 0.00 (0.00-0.30) K/uL Abs Immat Gran (auto) 0.00 (0.00-0.30) K/uL Imm/Tot Granulo (auto) 0.2 % INR 1.08 (0.91-1.10) APTT 24 (23-33) Seconds D-Dimer Quant (PE/DVT) 1.50 H (0.00-0.50) ug/ml VBG pH 7.377 (7.32-7.43) VBG pCO2 49 (40-50) mmHG VBG pO2 < 30.1 (25-47) mmHG VBG HCO3 29 H (21-28) mmol/L Sodium 131 L (135-149) mmol/L Potassium 4.5 (3.6-5.1) mmol/L Chloride 94 L (96-114) mmol/L Carbon Dioxide 27 (20-32) mmol/L Anion Gap 10 (7-15) mEq/L BUN 23 (7-30) mg/dL Creatinine 0.8 (0.5-1.5) mg/dL Estimated Creat Clear 30.08 Estimated GFR 73 ml/min Glucose 217 H (60-115) mg/dL Lactate 1.3 (0.5-1.9) mmol/L Calcium 10.2 (8.4-10.6) mg/dL Total Bilirubin 0.5 (0.1-1.5) mg/dL Direct Bilirubin 0.2 (0.0-0.5) mg/dL AST 27 (12-35) U/L ALT 18 (4-35) U/L Alkaline Phosphatase 67 (40-150) U/L Troponin I 0.21 H* (0.01-0.04) ng/mL C-Reactive Protein 3.2 H (0.5-1.0) mg/dL NT-Pro-B Natriuret Pep 1160 pg/mL Total Protein 6.8 (6.0-8.3) g/dL Albumin 4.1 (3.3-5.0) g/dL Lipase 59 (23-300) U/L Procalcitonin 0.64 H (<0.50) ng/mL SARS-CoV-2 (PCR) Negative SARS-CoV-2 (Negative) Influenza Type A (PCR) Negative PCR FLU A (Negative) Influenza Type B (PCR) Negative PCR FLU B (Negative) RSV (PCR) Negative PCR RSV (Negative) Imaging Data Chest x-ray: Attestation: I have reviewed the pertinent imaging results. My impression: Pulmonary edema Radiologist's impression: [place] [address] Diagnostic Imaging Report Patient: Maisha Israel MR#: [id number] : 1940 Acct:[id number] Loc: ED Service Date: 09/12/[address]: Ordering Physician: Mike Valenzuela M.D. Date of Service: 09/12/24 Procedure(s): XR chest 2V Accession Number(s): [id number] cc: Vikki Cope M.D.; Mike Valenzuela M.D.~ For Patients: As a result of the Century Cures Act, medical imaging exams and procedure reports are released immediately into your electronic medical record. You may view this report before your referring provider. If you have questions, please contact your health care provider. INDICATION: Dyspnea COMPARISON: May 14, 2024 TECHNIQUE: PA and lateral views of the chest were acquired FINDINGS: TUBES AND LINES: None. HEART AND MEDIASTINUM: Enlarged heart. Sternotomy.. LUNGS AND PLEURAL SPACES: Interstitial, vascular and alveolar findings likely representing interstitial and alveolar edema. A diffuse inflammatory process accounting for this is also possible.No large effusions. No pneumothorax OSSEOUS STRUCTURES: Demineralization, degenerative changes and kyphosis. IMPRESSION: Findings likely due to interstitial and alveolar edema. A diffuse inflammatory process accounting for this is also possible. Enlarged heart. Sternotomy. No large effusions. Dictated by Rajeev Guidry MD @ 09/12/2024 5:31:09 AM (Electronically Signed) ECG Data Attestation: I personally reviewed and interpreted this ECG as follows: ECG interpretation date: 09/12/24 Prior ECG tracings: available for review Interpretation: EKG shows sinus tachycardia with with the PACs, there is some said ST wave flattening noted inferiorly primarily, and also over the precordial leads. QRS is normal QT and QTC are normal. In comparison with old EKG from 05/14/2024 except for the muscle movement artifact it all appears to be relatively the same Repeat EKG done at 7:00 a.m., shows sinus tachycardia with a ventricular rate of 111, the muscle fasciculations have cleared, she does have some ST wave abnormality with flattening, but overall improved. No evidence of any acute findings. Critical Care Time Critical Care Time Critical Care Time: Yes Attestation: The patient required my highest level preparedness to intervene emergently and I personally spent this critical care time directly and personally managing the patient. This critical care time included: Obtaining a history; Examining the patient; Pulse oximetry; Ordering and reviewing of studies; Arranging urgent treatment with development of a management plan; Evaluation of patients response to treatment; Frequent reassessment discussions with other providers. This critical care time was performed to assess and manage the high probability of imminent life-threatening deterioration that could result in multiorgan failure. It was exclusive of separate billable procedures and treating other patients and teaching time. Total Critical Care Time in Minutes: 60 (Total critical care time: Approximately minutes due to high probability clinically significant, life- threatening deterioration, the patient required my highest level preparedness to intervene emergently and I personally spent this critical care time directly and personally managing the patient. T) Discharge Plan Discharge Clinical Impression: Acute hypoxemic respiratory failure, CHF (congestive heart failure), Elevated troponin, D-dimer, elevated, Chronic renal insufficiency, stage III (moderate) Patient Disposition: Admitted As Observation Condition: Guarded
--- OUTSIDE RECORDS SUMMARY | 2024-09-12 05:10 | XMS_ITS | Clinical Summary ---
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 0 06/24/20 21 Active glucos sul [id number]- [place] (Glucosamine Chondroitin) 550-30-1 mg cap Take [...] Department Care Team Description 09/05/2024 11:30 AM CARTRIDGE ASSEMBLING MACHINE ADJUSTER Office Visit [facility] [address] [place] [address] [phone] Vikki Cope MD Follow Up (Weight, B/P and blood sugars/Daughter concerned about side effects of medications or C-diff from antibiotics in the past/Has a rash); Serious Illness Conversation 09/05/2024 Travel 09/04/2024 Telephone [facility] [address] [place] [address] Vikki Cope MD Weight 09/01/2024 Nurse Triage [facility] [address] [place] [address] Vikki Cope MD Appointment Request 07/18/2024 Refill [facility] [address] [place] [address] Vikki Cope MD Refill Request (KLONOPIN) 07/13/2024 12:35 PM CARTRIDGE ASSEMBLING MACHINE ADJUSTER Office Visit [facility] [address] [place] [address] Vikki Cope MD Lab (Blood work ); [...] on file Legal Sex Female 6:24 AM CARTRIDGE ASSEMBLING MACHINE ADJUSTER Gender Identity Not on file Sexual Orientation Not on file Obstetrics History Last Filed Vital Signs Vital Sign Reading Time Taken Comments Blood Pressure 109/64 09/05/2024 12:05 PM CARTRIDGE ASSEMBLING MACHINE ADJUSTER Pulse 80 09/05/2024 12:05 PM CARTRIDGE ASSEMBLING MACHINE ADJUSTER Temperature 37 C (98.6 F) 05/23/2024 10:41 AM CARTRIDGE ASSEMBLING MACHINE ADJUSTER Respiratory Rate 18 08/01/2019 10:4 2 AM CARTRIDGE ASSEMBLING MACHINE ADJUSTER Oxygen Saturation 94% 09/05/2024 12: 05 PM CARTRIDGE ASSEMBLING MACHINE ADJUSTER Inhaled Oxygen Concentration - - Weight 53.9 kg (118 lb 12.8 oz) 025 12:05 PM CARTRIDGE ASSEMBLING MACHINE ADJUSTER Height 149.9 cm (4' 11) 03/02/2024 10: 44 AM CDT Body Mass Index 23.99 03/02/2024 10:44 AM CDT Plan of Treatment Upcoming Encounters Date Type Department Care Team (Late st Contact Info) Description 10/10/2024 2:15 PM CDT Office Visit [facility] [address] [place] [address] Vikki Cope MD [address] [place] [address] Health Maintenance Due Date Last Done Comments [...] Diagnosis Comments MAGNESIUM Routine 07/13/2024 2:15 PM CARTRIDGE ASSEMBLING MACHINE ADJUSTER Gitelman disease BASIC METABOLIC PANEL Routine 07/13/2024 2:15 PM CARTRIDGE ASSEMBLING MACHINE ADJUSTER Gitelman disease TSH WITH REFLEX Routine 07/13/2024 2:15 PM CARTRIDGE ASSEMBLING MACHINE ADJUSTER Chronic diarrhea Nutritional anemia, unspecified VITAMIN D 25 (DEFICIENCY) Routine 07/13/2024 2:15 PM CARTRIDGE ASSEMBLING MACHINE ADJUSTER Vitamin D deficiency CBC WITH AUTO DIFFERENTIAL Routine 07/13/2024 2:15 PM CARTRIDGE ASSEMBLING MACHINE ADJUSTER Nutritional anemia, unspecified VITAMIN B12 Routine 07/13/2024 2:15 PM CARTRIDGE ASSEMBLING MACHINE ADJUSTER Nutritional anemia, unspecified PHOSPHORUS Routine 07/13/2024 2:15 PM CARTRIDGE ASSEMBLING MACHINE ADJUSTER Gitelman disease FERRITIN Routine 07/13/2024 2:15 PM CARTRIDGE ASSEMBLING MACHINE ADJUSTER Nutritional anemia, unspecified from Last 3 Months Results * TSH WITH REFLEX (07/13/2024 2:15 PM CARTRIDGE ASSEMBLING MACHINE ADJUSTER) TSH W/REFLEX TO FT4 1.69 0.40 - 4.50 mIU/L [facility] Blood BLOOD SPECIMEN / Unknown 07/13/2024 2:15 PM CARTRIDGE ASSEMBLING MACHINE ADJUSTER 07/13/2024 2:15 PM CARTRIDGE ASSEMBLING MACHINE ADJUSTER Vikki Cope MD CHEMISTRY Final Result Performing Organization Address City/State/[facility] Co de Phone Number [facility] [address] [place] [address], [facility] [address] [place] [address] * (ABNORMAL) VITAMIN D 25 (DEFICIENCY) (07/13/2024 2:15 PM CARTRIDGE ASSEMBLING MACHINE ADJUSTER) VITAMIN D,25-OH,TOTAL,IA 23(L) 30 - 100 ng/mL [...] D, (D2,D3), LC/MS/MS is recommended: order code [id number] (patients >2yrs). See Note 1 Note 1 For additional information, please refer to http://education.Collisionable.iSkoot/faq/MWU318 (This link is being provided for informational/ educational purposes only.) Blood BLOOD SPECIMEN / Unknown 07/13/2024 2:15 PM CARTRIDGE ASSEMBLING MACHINE ADJUSTER 07/13/2024 2:15 PM CARTRIDGE ASSEMBLING MACHINE ADJUSTER Vikki Cope MD SEND OUTS Final Result [employer] [address] [place] [address], [facility] [address] [place] [address] * CBC AND DIFFERENTIAL (07/13/2024 2:15 PM CARTRIDGE ASSEMBLING MACHINE ADJUSTER) Pathologist [facility] WHITE BLOOD CELL COUNT 7.4 3.8 - [...] BLOOD SPECIMEN / Unknown 07/13/2024 2:15 PM CARTRIDGE ASSEMBLING MACHINE ADJUSTER 07/13/2024 2:15 PM CARTRIDGE ASSEMBLING MACHINE ADJUSTER Vikki Cope MD HEMATOLOGY Final Result [facility] [address] [place] [address], [place] [phone] [facility] [address] [place] [address] * PHOSPHORUS (07/13/2024 2:15 PM CARTRIDGE ASSEMBLING MACHINE ADJUSTER) PHOSPHATE ( PHOSPHORUS) 3.2 2.1 - 4.3 mg/dL [facility] Blood BLOOD SPECIMEN / Unknown 07/13/2024 2:15 PM CARTRIDGE ASSEMBLING MACHINE ADJUSTER 07/13/2024 2:15 PM CARTRIDGE ASSEMBLING MACHINE ADJUSTER Vikki Cope MD CHEMISTRY Final Result [employer] [facility] [address] [place] [address], [facility] [address] [place] [address] * MAGNESIUM (07/13/2024 2:15 PM CARTRIDGE ASSEMBLING MACHINE ADJUSTER) MAGNESIUM 1.8 1.5 - 2.5 mg/dL [facility] Blood BLOOD SPECIMEN / Unknown 07/13/2024 2:15 PM CARTRIDGE ASSEMBLING MACHINE ADJUSTER 07/13/2024 2:15 PM CARTRIDGE ASSEMBLING MACHINE ADJUSTER Vikki Cope MD CHEMISTRY Final Result Performing Organization Address [facility] de Phone Number [facility] [address] [place] [address], [place] [phone] [facility] [address] [place] [address] * FERRITIN (07/13/2024 2:15 PM CARTRIDGE ASSEMBLING MACHINE ADJUSTER) [facility] FERRITIN 72 16 - 288 ng/mL [facility] Blood BLOOD SPECIMEN / Unknown 07/13/2024 2:15 PM CARTRIDGE ASSEMBLING MACHINE ADJUSTER 07/13/2024 2:15 PM CARTRIDGE ASSEMBLING MACHINE ADJUSTER us Vikki Cope MD CHEMISTRY Final Result Performing Organization Address [facility] de Phone Number [facility] [address] [place] [address], [place] [phone] [facility] [address] [place] [address] * VITAMIN B12 (07/13/2024 2:15 PM CARTRIDGE ASSEMBLING MACHINE ADJUSTER) [facility] VITAMIN B12 353 200 - 1,100 pg/mL [facility] Comment: Please Note: Although the [...] BLOOD SPECIMEN / Unknown 07/13/2024 2:15 PM CARTRIDGE ASSEMBLING MACHINE ADJUSTER 07/13/2024 2:15 PM CARTRIDGE ASSEMBLING MACHINE ADJUSTER us Vikki Cope MD CHEMISTRY Final Result Performing Organization Address [facility] Co de Phone Number [facility] [address] [place] [address], [place] [phone] [facility] [address] [place] [address] * (ABNORMAL) BASIC METABOLIC PANEL (07/13/2024 2:15 PM CARTRIDGE ASSEMBLING MACHINE ADJUSTER) GLUCOSE 119(H) 65 - 99 mg/dL [facility] [facility] Comment: Fasting reference interval For someone without known diabetes, a glucose value between 100 and 125 mg/dL is consistent with prediabetes and should be confirmed with a follow-up test. UREA NITROGEN (BUN) 18 7 - 25 mg/dL [facility] CREATININE 0.91 0.60 - 0.95 mg/dL [facility] EGFR 62 > OR = 60 mL/min/1. 73m2 [facility] BUN/CREATININE RATIO SEE NOTE: 6 - 22 (calc) [facility] Comment: Not Reported: BUN and Creatinine are within reference range. SODIUM 137 135 - 146 mmol/L [facility] POTASSIUM 4.2 3.5 - 5.3 mmol/L [facility] CHLORIDE 101 98 - 110 mmol/L [facility] CARBON DIOXIDE 27 20 - 32 mmol/L [facility] ELECTROLYTE BALANCE 9 7 - 17 mmol/L (calc) [facility] CALCIUM 10.3 8.6 - 10.4 mg/dL [facility] Blood BLOOD SPECIMEN / Unknown 07/13/2024 2:15 PM CARTRIDGE ASSEMBLING MACHINE ADJUSTER 07/13/2024 2:15 PM CARTRIDGE ASSEMBLING MACHINE ADJUSTER Vikki Cope MD CHEMISTRY Final Result [employer] [address] [place] [address], [facility] [address] [place] [address] from Last 3 Months Insurance MEDICARE PART A HB ONLY [employer] [place] HB ONLY [employer] MEDICARE ADVANTAGE MR Advance Directives Documents on File Type Date Recorded Patient Co Chairman Expl anation POLST 01/27/2024 Healthcare Directive 08/15/2016 017 Healthcare Directive 11/30/2013 1:21 PM [facility], 07/30/2004 * Full Code (Latest Code Status on File) Date Activated Date Inactivated Comments 05/09/2009 8:42 PM 05/12/2009 5:02 PM Care Teams Detective Lieutenant Relationship Specialty Start Date End Date Vikki Cope MD [address] [place] [address] PCP - General 11/01/05
--- NOTE | 2024-09-12 05:19 | PC.NURSE ---
Lab here to draw BC times 2. Ally privided-daughter states that nebs make her vomit.
[2024-09-12] MEDS: FUROSEMIDE 10 MG/ML inj 40 MG IVP (05:27)
[2024-09-12] MEDS: ALBUTEROL SULFATE 2.5 MG/3 ML VIAL.NEB NEB (05:27)
[2024-09-12 05:32] LABS: HCO3 VBG 29 mmol/L (21-28); PCO2 VBG 49 mmHG (40-50); PO2 VBG < 30.1 mmHG (25-47); pH VBG 7.377 (7.32-7.43)
[2024-09-12 05:35] LABS: PCR FLU A Negative PCR FLU A (Negative); PCR FLU B Negative PCR FLU B (Negative); PCR RSV Negative PCR RSV (Negative); SARS PCR* Negative SARS-CoV-2 (Negative)
[2024-09-12 05:36] LABS: Lactate* 1.3 mmol/L (0.5-1.9)
[2024-09-12 05:37] LABS: Basophils Percent Auto 0.2 % (0.0-3.0); Eosinophils Percent Auto 1.4 % (0.0-7.0); Hematocrit 38.1 % (33.0-51.0); Hemoglobin* 12.3 gm/dL (12.0-16.0); Immature Granulocytes Pct Auto 0.2 %; Lymphocytes Percent Auto 3.6 % (20-44); Mean Corpuscular HGB Conc 32 gm/dL (32-36); Mean Corpuscular Hemoglobin 31 pg (26-34); Mean Corpuscular Volume 96 fL (80-100); Monocytes Percent Auto 4.7 % (0.0-11.0); Neutrophils Percent Auto 89.9 % (42.0-72.0); Platelet Count* 214 K/uL (140-440); RDW Coefficient of Variation % 12.2 % (11.5-15.5); Red Blood Count 3.98 m/uL (4.00-5.20); Slide Review Reflex No
[2024-09-12 05:52] LABS: Albumin* 4.1 g/dL (3.3-5.0); Chloride* 94 mmol/L (96-114); Sodium* 131 mmol/L (135-149)
[2024-09-12 05:53] LABS: Potassium* 4.5 mmol/L (3.6-5.1)
[2024-09-12 05:55] LABS: Alkaline Phosphatase* 67 U/L (40-150); Anion Gap 10 mEq/L (7-15); Aspartate Amino Transferase* 27 U/L (12-35); Bilirubin Direct* 0.2 mg/dL (0.0-0.5); Bilirubin Total* 0.5 mg/dL (0.1-1.5); Blood Urea Nitrogen* 23 mg/dL (7-30); Calcium* 10.2 mg/dL (8.4-10.6); Carbon Dioxide* 27 mmol/L (20-32); Creatinine* 0.8 mg/dL (0.5-1.5); Est. Creatinine Clearance* 30.08; Estimated Glomerular Filt Rate 73 ml/min; Glucose* 217 mg/dL (60-115); Lipase* 59 U/L (23-300); Total Protein* 6.8 g/dL (6.0-8.3)
[2024-09-12 05:56] LABS: Alanine Aminotransferase* 18 U/L (4-35)
[2024-09-12 05:58] LABS: C Reactive Protein* 3.2 mg/dL (0.5-1.0)
[2024-09-12 06:06] LABS: NT Pro B Type NatriureticPept* 1160 pg/mL
[2024-09-12 06:12] LABS: Procalcitonin* 0.64 ng/mL (<0.50)
[2024-09-12 06:14] LABS: Troponin I* 0.21 ng/mL (0.01-0.04)
[2024-09-12 07:01] LABS: INR 1.08 (0.91-1.10); Partial Thromboplastin Time* 24 Seconds (23-33); Prothrombin Time 14.8 Seconds
[2024-09-12] MEDS: ASPIRIN 81 MG TAB.CHEW 324 MG PO (07:15)
--- NOTE | 2024-09-12 07:40 | ED.NURSE ---
Pt on high flow NC @ 15LPM for CT scan.
[2024-09-12] MEDS: levoFLOXacin 500 MG/100 ML D5W 500 MG/100 ML PIGGYBACK 100 MG IVPB (07:57)
--- NOTE | 2024-09-12 08:29 | ED.NURSE ---
Pt report given to Gabby Puente RN. Pt to [id number]
[2024-09-12 09:51] LABS: Lactate* 0.8 mmol/L (0.5-1.9)
[2024-09-12] MEDS: glipiZIDE 2.5 MG ER TAB PO (10:02)
[2024-09-12] MEDS: OMEPRAZOLE 20 MG CAPSULE DR PO ×2 (10:02→22:07)
[2024-09-12] MEDS: levETIRAcetam 500 MG TABLET 750 MG PO ×2 (10:02→22:09)
[2024-09-12] MEDS: SERTRALINE 100 MG TABLET PO (10:03)
[2024-09-12 10:10] LABS: Sodium* 129 mmol/L (135-149)
[2024-09-12] MEDS: SODIUM CHLORIDE 0.9 % (FLUSH) 10 ML SYRINGE 5 ML IVF ×2 (10:14→22:09)
[2024-09-12 10:28] LABS: Troponin I* 0.64 ng/mL (0.01-0.04)
--- NOTE | 2024-09-12 13:07 | REH.OT ---
OT orders received and appreciated. Per chart review, pt recently admitted, and has low BP and high O2 needs. Will hold 09/12 and initiate OT consult 09/13 as able and appropriate.
--- NOTE | 2024-09-12 15:47 | P.IMHP_ITS ---
Hospitalist- H&P: HPI History of Present Illness Date Seen: 09/12/24 Chief complaint: Respiratory Distress Narrative: Maisha Israel is a 84 year old woman who presented to the [facility] Emergency Department via EMS early this morning with sudden onset of dyspnea. She had been feeling well throughout the day yesterday, including when she went to bed yesterday evening. No recent infectious illnesses, upper or lower respiratory tract symptoms, gastrointestinal or genitourinary tract symptoms, trauma or injury, blood loss of any sort. Awoke around 3:00 a.m. this morning with sudden onset of shortness of breath. Notified staff where she resides who called EMS. On 1st assessment they indicated her resting room air oxygen saturation was 68%. Patient indicated she could not catch her breath. Administer DuoNeb and ondansetron. On arrival to the emergency department she was still requiring a fair amount of oxygen support and she was placed on high-flow oxygen with FiO2 initially 100%. Slowly titrated thereafter to flow of 30 L per minute and FiO2 of 35% to maintain resting oxygen saturation around 90%. Denies chest heaviness, pressure, tightness, or pain. No recent cough. No recent paroxysmal nocturnal dyspnea orthopnea except for when she awoke short of breath today. No change in lower extremity edema which she states is chronic. Troponin I elevated at 0.2 on assessment in the emergency department. Electrocardiogram demonstrated sinus tachycardia without ischemic or infarct pattern. CT scan with PE protocol demonstrated no obvious pulmonary emboli with what appears to be interstitial pulmonary edema. Treated with IV furosemide. Condition stabilized. Discussion was undertaken in the emergency department with the patient and her daughter about possible transfer to a tertiary medical care facility. Patient made it very clear that she does not want to be transferred to any other hospital. She indicates she is ready to if this is her time to . She is agreeable to staying at [facility] and treated medically but without any heroic measures. Adamant that she wants to have DNR DNI resuscitation status. This is not new for the patient. Daughter confirms that her mother has held these desires for some time. Transferred to Hospital medical floor for further management and support. Review of Systems Status of ROS: Reports: 10 or more systems reviewed and unremarkable except as noted in History and below Narrative: Resides in an assisted living facility for the most part independent all below she does get some help with medication setup. Her preference is to remain in assisted living and is willing to obtain more supportive help if warranted. She is willing to go to a fpc facility for short period of time if needed. Patient's daughter, Shonna, has a lot of questions about her mother's condition and prognosis. These questions are voiced in front of the patient and answers are provided to the patient's daughter inpatient. Their questions are answered to their satisfaction. The bottom line is that we do not know exactly with the patient's prognosis is at this time and need more time to sort out her condition before we can provide a more meaningful response to this question. I do indicate that for the time being the patient's condition is stabilizing with our intervention efforts which is a favorable sign, but this does not mean that the patient will in fact survive this particular situation. They expressed understanding. [facility] Medical History Elevated troponin I level ?R79.89 - Other specified abnormal findings of blood chemistry (ICD-10) Periprosthetic fracture around internal prosthetic left hip joint ?M97.02XA - Periprosthetic fracture around internal prosthetic left hip joint, initial encounter (ICD-10) COPD (chronic obstructive pulmonary disease) ?J44.9 - Chronic obstructive pulmonary disease, unspecified (ICD-10) Stage 3a chronic kidney disease ?N18.31 - Chronic kidney disease, stage 3a (ICD-10) Purple toe syndrome of both feet ?I75.023 - Atheroembolism of bilateral lower extremities (ICD-10) Hyperlipidemia ?E78.5 - Hyperlipidemia, unspecified (ICD-10) Hypophosphatemia ?E83.39 - Other disorders of phosphorus metabolism (ICD-10) High calcium levels ?E83.52 - Hypercalcemia (ICD-10) Anxiety state ?F41.1 - Generalized anxiety disorder (ICD-10) Fibromyalgia muscle pain ?M79.7 - Fibromyalgia (ICD-10) Hypomagnesemia ?E83.42 - Hypomagnesemia (ICD-10) Vitamin D deficiency ?E55.9 - Vitamin D deficiency, unspecified (ICD-10) 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 (ICD-10) Degeneration of lumbar or lumbosacral intervertebral disc ?M51.379 - Other intervertebral disc degeneration, lumbosacral region without mention of lumbar back pain or lower extremity pain (ICD-10) Spinal stenosis, lumbar region without neurogenic claudication ?M48.061 - Spinal stenosis, lumbar region without neurogenic claudication (ICD-10) Major depressive disorder ?F32.9 - Major depressive disorder, single episode, unspecified (ICD-10) Rheumatoid arthritis ?M06.9 - Rheumatoid arthritis, unspecified (ICD-10) Myocardial infarction ?I21.9 - Acute myocardial infarction, unspecified (ICD-10) Muscle weakness ?M62.81 - Muscle weakness (generalized) (ICD-10) Fracture of clavicle ?S42.009A - Fracture of unspecified part of unspecified clavicle, initial encounter for closed fracture (ICD-10) Counseling regarding advanced directives (08/15/16) ?Z71.89 - Other specified counseling (ICD-10) Acute delirium ?R41.0 - Disorientation, unspecified (ICD-10) Acute confusion ?R41.0 - Disorientation, unspecified (ICD-10) Leukocytosis ?D72.829 - Elevated white blood cell count, unspecified (ICD-10) Seizure ?R56.9 - Unspecified convulsions (ICD-10) 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 - Hypomagnesemia (ICD-10) ?E87.6 - Hypokalemia (ICD-10) Hypertension ?I10 - Essential (primary) hypertension (ICD-10) 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 ?I25.810 - Atherosclerosis of coronary artery bypass graft(s) without angina pectoris (ICD-10) Type 2 diabetes mellitus ?E11.9 - Type 2 diabetes mellitus without complications (ICD-10) Closed fracture of left hip (08/29/23) ?S72.002A - Fracture of unspecified part of neck of left femur, initial encounter for closed fracture (ICD-10) Surgical History H/O: hysterectomy (~1985) ?Z90.710 - Acquired absence of both cervix and uterus (ICD-10) S/P CABG x 4 (~2000) ?Z95.1 - Presence of aortocoronary bypass graft (ICD-10) History of open reduction and internal fixation (ORIF) procedure (08/31/23) ?Z98.890 - Other specified postprocedural states (ICD-10) 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 Since coming home from rehab of L hip fracture in the spring, her daughter and son-in-law have been staying with her and getting the house ready to sell. They have plans to move her into [facility] in [place] soon. H/o smoking 60 pack years, quit in 2000. Doesn't drink alcohol. DNR/DNI. What is your current living situation?: I presently have a place to live Problems where you live: no known problems Problems where you live details: NA In the past 12 months, utilities in danger of being shut off: no In past 12 months, lack of transportation kept you from medical appts, meetings, work, or getting things needed for daily living: no In the past 12 mos, have been you worried that your food would run out before you had money to buy more?: never true In the past 12 mos, the food you bought just didn't last and you didn't have money to buy more?: never true Are you following a special diet: Yes (minced and moist texture at home) Highest level of school completed/degree received: high school graduate Smoking Status: Never smoker Do you use any of these nicotine containing products: None Second hand tobacco smoke exposure: No How often do you have a drink containing alcohol: never How often do you have six or more drinks on one occasion: Never AUDIT-C Alcohol total score: 0 Non-prescribed substance use: denies use Caffeine: Yes How often does anyone, including family, friends and others, physically hurt you : never How often does anyone, including family, friends and others, insult or talk down to you: never How often does anyone, including family, friends and others, threaten you with harm: never How often does anyone, including family, friends and others, scream or curse at you: never service: No Meds Home Medications and Allergies Home Medications ?Medication ?Instructions ?Recorded ?Confirmed ?Type amiloride 5 mg tablet 5 mg PO DAILY 08/28/23 09/12/24 History clonazepam 0.5 mg tablet 0.75 mg PO HS 08/28/23 09/12/24 History glipizide 2.5 mg tablet, extended 2.5 mg PO DAILY 08/28/23 09/12/24 History release 24 hr levetiracetam 250 mg tablet 750 mg PO BID 08/28/23 09/12/24 History metoprolol succinate 100 mg 100 mg PO DAILY 08/28/23 09/12/24 History tablet,extended release 24 hr nitroglycerin 0.4 mg sublingual 0.4 mg sublingual Q5M PRN 08/28/23 09/12/24 History tablet nystatin 100,000 unit/gram topical 1 applic topical BID PRN 08/28/23 09/12/24 History powder (Nystop) omeprazole 20 mg capsule,delayed 20 mg PO BID 08/28/23 09/12/24 History release rosuvastatin 20 mg tablet 20 mg PO QPM 08/28/23 09/12/24 History lidocaine 5 % topical patch 1 patch topical DAILY 05/14/24 09/12/24 History mirabegron 25 mg tablet,extended 25 mg PO DAILY 05/14/24 09/12/24 History release 24 hr (Myrbetriq) sertraline 100 mg tablet 100 mg PO DAILY 05/15/24 09/12/24 History aspirin 325 mg tablet 325 mg PO DAILY 09/12/24 09/12/24 History ferrous gluconate 324 mg (38 mg 324 mg PO MOTH 09/12/24 09/12/24 History iron) tablet fexofenadine 60 mg tablet (Aarti 60 mg PO QAM 09/12/24 09/12/24 History Allergy) folic acid 400 mcg tablet 400 mcg PO DAILY 09/12/24 09/12/24 History glucosamine sulf dipot 2 cap PO DAILY 09/12/24 09/12/24 History chlr,msm,chond 550 mg-C 30 mg-nolan 1 mg capsule (Glucosamine Chondroitin) loperamide 2 mg tablet 2 mg PO Q1-2H PRN 09/12/24 09/12/24 History lutein 20 mg-zeaxanthin 1 1 cap PO DAILY 09/12/24 09/12/24 History mg-bilberry fruit extract 2.2 mg capsule magnesium glycinate 2,400 mg PO DAILY 09/12/24 09/12/24 History Allergies Allergy/AdvReac Type Severity Reaction Status Date / Time codeine Allergy Intermediate Verified 03/15/24 10:59 Penicillins Allergy Intermediate Verified 03/15/24 10:59 Exam Narrative: Exam Narrative: I initially examined the patient in the hospital emergency department. Subsequently I examined the patient on the hospital floor. By the time I see the patient she appears comfortable and in no acute distress. Patient seems appropriately anxious. She is hard of hearing but cooperative and friendly. Alert and oriented x4. Multiple missing dentition make understanding which she says sometimes difficult. Even so she is articulate. Sitting upright she has jugular venous distention and hepatojugular reflux. No wheezing or rhonchi with bibasilar rales. Chest wall excursions are full. Heart tones with regular rhythm, normal S1-S2. Abdomen with active bowel sounds, soft, nontender. Extremities with edema up to pretibial area bilaterally. No focal motor neurologic deficits. Const: Vital Signs, click to edit/add: Vital Signs - 24 hr 09/12/24 04:54 09/12/24 04:56 09/12/24 04:57 Temperature 101.3 F H Pulse Rate Pulse Rate [Pulse Oximeter] 111 H Respiratory Rate 22 22 Blood Pressure Blood Pressure [Le ft Arm] Blood Pressure [Ri ght Upper Arm] 110/70 Pulse Oximetry 77 L 93 92 Oxygen Delivery Me thod Room Air OxyMask OxyMask Oxygen Flow Rate 10 10 Fraction of Inspir ed Oxygen 09/12/24 04:58 09/12/24 04:58 09/12/24 04:58 Temperature 99.2 F Pulse Rate Pulse Rate [Pulse Oximeter] 105 H Respiratory Rate 22 22 Blood Pressure Blood Pressure [Le ft Arm] Blood Pressure [Ri ght Upper Arm] 114/74 Pulse Oximetry 92 92 93 Oxygen Delivery Me thod OxyMask High Flow Nasal Ca nnula Oxygen Flow Rate 10 20 Fraction of Inspir ed Oxygen 40 09/12/24 05:09 09/12/24 05:12 09/12/24 05:18 Temperature 99.2 F Pulse Rate 104 H Pulse Rate [Pulse Oximeter] Respiratory Rate 14 Blood Pressure 106/67 Blood Pressure [Le ft Arm] Blood Pressure [Ri ght Upper Arm] Pulse Oximetry 93 Oxygen Delivery Me thod Oxygen Flow Rate Fraction of Inspir ed Oxygen 40 09/12/24 05:29 09/12/24 05:32 09/12/24 06:02 Temperature Pulse Rate 102 H 107 H 111 H Pulse Rate [Pulse Oximeter] Respiratory Rate 22 24 27 H Blood Pressure 98/56 L 114/64 100/61 Blood Pressure [Le ft Arm] Blood Pressure [Ri ght Upper Arm] Pulse Oximetry 94 90 91 Oxygen Delivery Me thod High Flow Nasal Ca nnula Oxygen Flow Rate Fraction of Inspir ed Oxygen 09/12/24 06:08 09/12/24 06:21 09/12/24 06:30 Temperature Pulse Rate 118 H Pulse Rate [Pulse Oximeter] Respiratory Rate 22 Blood Pressure Blood Pressure [Le ft Arm] Blood Pressure [Ri ght Upper Arm] Pulse Oximetry 88 Oxygen Delivery Me thod Oxygen Flow Rate Fraction of Inspir ed Oxygen 35 30 09/12/24 06:32 09/12/24 06:32 09/12/24 06:33 Temperature Pulse Rate 118 H 115 H Pulse Rate [Pulse Oximeter] Respiratory Rate 21 5 L Blood Pressure 105/64 Blood Pressure [Le ft Arm] Blood Pressure [Ri ght Upper Arm] Pulse Oximetry 91 85 L Oxygen Delivery Me thod High Flow Nasal Ca nnula Oxygen Flow Rate 30 Fraction of Inspir ed Oxygen 35 35 09/12/24 06:45 09/12/24 06:45 09/12/24 07:00 Temperature Pulse Rate 113 H 112 H Pulse Rate [Pulse Oximeter] Respiratory Rate 14 24 Blood Pressure Blood Pressure [Le ft Arm] Blood Pressure [Ri ght Upper Arm] Pulse Oximetry 89 90 Oxygen Delivery Me thod Oxygen Flow Rate Fraction of Inspir ed Oxygen 35 09/12/24 07:01 09/12/24 07:02 09/12/24 07:15 Temperature Pulse Rate 111 H 113 H 110 H Pulse Rate [Pulse Oximeter] Respiratory Rate 17 19 12 Blood Pressure 94/55 L Blood Pressure [Le ft Arm] Blood Pressure [Ri ght Upper Arm] Pulse Oximetry 90 92 90 Oxygen Delivery Me thod Oxygen Flow Rate Fraction of Inspir ed Oxygen 09/12/24 07:30 09/12/24 07:32 09/12/24 07:33 Temperature Pulse Rate 114 H 114 H 112 H Pulse Rate [Pulse Oximeter] Respiratory Rate 32 H 11 L 9 L Blood Pressure 97/53 L Blood Pressure [Le ft Arm] Blood Pressure [Ri ght Upper Arm] Pulse Oximetry 90 90 90 Oxygen Delivery Me thod Oxygen Flow Rate Fraction of Inspir ed Oxygen 09/12/24 07:55 09/12/24 08:00 09/12/24 08:02 Temperature Pulse Rate 111 H 107 H 106 H Pulse Rate [Pulse Oximeter] Respiratory Rate 22 13 Blood Pressure 93/53 L Blood Pressure [Le ft Arm] Blood Pressure [Ri ght Upper Arm] Pulse Oximetry 95 89 90 Oxygen Delivery Me thod Oxygen Flow Rate Fraction of Inspir ed Oxygen 09/12/24 08:03 09/12/24 08:15 09/12/24 08:30 Temperature Pulse Rate 108 H 105 H 105 H Pulse Rate [Pulse Oximeter] Respiratory Rate 24 16 Blood Pressure Blood Pressure [Le ft Arm] Blood Pressure [Ri ght Upper Arm] Pulse Oximetry 91 91 97 Oxygen Delivery Me thod Oxygen Flow Rate Fraction of Inspir ed Oxygen 09/12/24 08:40 09/12/24 09:47 09/12/24 10:28 Temperature 99.5 F Pulse Rate 94 Pulse Rate [Pulse Oximeter] Respiratory Rate 24 20 Blood Pressure Blood Pressure [Le ft Arm] 97/57 L Blood Pressure [Ri ght Upper Arm] Pulse Oximetry 91 91 Oxygen Delivery Me thod Nasal Cannula Nasal Cannula Oxygen Flow Rate 3 3 Fraction of Inspir ed Oxygen 09/12/24 11:00 Temperature 99.0 F Pulse Rate Pulse Rate [Pulse Oximeter] Respiratory Rate 20 Blood Pressure Blood Pressure [Le ft Arm] 90/50 L Blood Pressure [Ri ght Upper Arm] Pulse Oximetry 92 Oxygen Delivery Me thod Nasal Cannula Oxygen Flow Rate 2 Fraction of Inspir ed Oxygen Hospitalist - H&P: Result Labs Labs: Short CBC 09/12/24 Range/Units 05:25 WBC 12.50 H (4.50-11.00) K/uL Hgb 12.3 (12.0-16.0) gm/dL Hct 38.1 (33.0-51.0) % Plt Count 214 (140-440) K/uL BMP 09/12/24 09/12/24 05:25 09:41 Sodium 131 L 129 L Potassium 4.5 Chloride 94 L Carbon Dioxide 27 BUN 23 Creatinine 0.8 Glucose 217 H Calcium 10.2 Cardiac Enzymes 09/12/24 09/12/24 Range/Units 05:25 09:41 Troponin I 0.21 H* 0.64 H* (0.01-0.04) ng/mL Liver Function 09/12/24 Range/Units 05:25 Total Bilirubin 0.5 (0.1-1.5) mg/dL Direct Bilirubin 0.2 (0.0-0.5) mg/dL AST 27 (12-35) U/L ALT 18 (4-35) U/L Alkaline Phosphatase 67 (40-150) U/L Albumin 4.1 (3.3-5.0) g/dL ECG Attestation: I personally reviewed and interpreted this ECG as follows: ECG interpretation date: 09/12/24 Interpretation: Initial electrocardiogram demonstrates sinus tachycardia without ischemia or in farct. Subsequent electrocardiogram demonstrates normal sinus rhythm without ischemia or infarct. Imaging CT angiogram of chest - : Radiologist's impression: FINDINGS: : HEART and MEDIASTINUM: The heart is enlarged. There has been a median sternotomy. There is no mediastinal or hilar adenopathy or mass or significant pericardial fluid. There are atherosclerotic vascular and valvular calcifications. PULMONARY ARTERIAL CIRCULATION: There is no visible intraluminal filling defect to suggest pulmonary embolus. LUNGS and PLEURAL SPACES: Thickening of the interlobular septa and diffuse patchy multifocal ground-glass in a bilateral and roughly symmetric distribution. This pattern is usually due to interstitial and alveolar edema. Bibasilar opacities are probably due to atelectasis. Scant pleural fluid. No pneumothorax. Occasionally, a diffuse atypical inflammatory process can create this overall appearance. VISUALIZED UPPER ABDOMEN: The limited visualized upper abdominal structures appear normal. OSSEOUS STRUCTURES: Kyphoscoliosis TUBES and LINES: None. IMPRESSION: 1. Enlarged heart. Median sternotomy. 2. No findings of pulmonary embolus. 3. Lung findings likely indicating interstitial and alveolar edema with bibasilar atelectasis and scant effusions. Occasionally, a diffuse atypical inflammatory process can create this appearance. Assessment and Plan Assessment and plan (1) Acute hypoxemic respiratory failure: Problem comment: -does not ordinarily utilizes oxygen. -has been told in the past that she qualifies for oxygen supplementation with exertion but patient has declined such. -likely due to acute heart failure in association with non STEMI type 2 -continue with oxygen support -attempt diuresis Status: Acute (2) Acute heart failure: Problem comment: -acute pulmonary edema, likely due to non STEMI type 2 -increase diuresis efforts -monitor vital signs, weight, labs -will try to talk the patient into obtaining a transthoracic echocardiogram which she previously declined -for the time being were treating this as hypertensive heart disease with heart failure likely diastolic heart failure -patient declines any consideration for interventions other than medical management at this time Status: Acute (3) Elevated troponin: Problem comment: -I suspect this is a non STEMI type 2 response -continue to monitor troponin I's and electrocardiogram and telemetry -patient requests DNR DNI resuscitation status Status: Acute (4) COPD (chronic obstructive pulmonary disease): Problem comment: -may have an element of right-sided heart failure and pulmonary hypertension as well that is contributing to her dyspnea an elevated troponin I Status: Chronic (5) Hypertension: Problem comment: - holding home antihypertensives given hypotension Status: Chronic (6) Type 2 diabetes mellitus: Problem comment: - 05/08/2024 hemoglobin A1c 7% - sliding-scale insulin in hospital Status: Chronic (7) Stage 3a chronic kidney disease: Problem comment: - 05/08/2024 creatinine 0.95, baseline creatinine over the last few years is about 1-1.1 - creatinine is 0.8. Monitor. Status: Chronic (8) Anemia: Problem comment: -hemoglobin 12 on 09/12/2024 -monitor Status: Acute (9) Hyponatremia: Problem comment: -monitor as we intensify loop diuretic administration which preferentially excretes water over sodium -consider fluid restriction Status: Acute Plan 1. Reviewed with patient and daughter 2. Answered their questions 3. There agree with above stated plans and recommendations Total Time Spent Total Time Spent: 70 minutes
--- NOTE | 2024-09-12 21:45 | PC.NURSE ---
Patient alert and oriented. Complains of shortness of breath at rest. Currently on 2L of oxygen per NC. Pt walked into the BR with walker, GB and assist from 1-2 staff. Pt demonstrates a steady gait however reports feeling much weaker than normal. Pt expresses wanting to return to previous living situation at [facility]. Pt encouraged to move as much as tolerated.
[2024-09-12] MEDS: ROSUVASTATIN CALCIUM 10 MG TABLET 20 MG PO (22:07)
[2024-09-12] MEDS: clonazePAM 0.5 MG TABLET 0.75 MG PO (22:08)
[2024-09-12] MEDS: ACETAMINOPHEN 325 MG TABLET 650 MG PO (22:13)
[2024-09-13 03:00] VITALS: BP 129/70; PULSE 81; RESP 18; TEMP 36.6; O2SAT 92
[2024-09-13 06:18] LABS: HCO3 VBG 29 mmol/L (21-28); Lactate* 0.7 mmol/L (0.5-1.9); PCO2 VBG 49 mmHG (40-50); PO2 VBG 53.3 mmHG (25-47); pH VBG 7.376 (7.32-7.43)
[2024-09-13 06:28] LABS: Hematocrit 31.4 % (33.0-51.0); Hemoglobin* 10.3 gm/dL (12.0-16.0); Mean Corpuscular HGB Conc 33 gm/dL (32-36); Mean Corpuscular Hemoglobin 31 pg (26-34); Mean Corpuscular Volume 96 fL (80-100); Platelet Count* 189 K/uL (140-440); Red Blood Count 3.28 m/uL (4.00-5.20); White Blood Count* 9.78 K/uL (4.50-11.00)
[2024-09-13 06:40] LABS: Slide Review Reflex No
[2024-09-13 06:52] LABS: Chloride* 94 mmol/L (96-114); Potassium* 3.8 mmol/L (3.6-5.1); Sodium* 129 mmol/L (135-149)
[2024-09-13 06:55] LABS: Blood Urea Nitrogen* 32 mg/dL (7-30); Est. Creatinine Clearance* 30.08; Estimated Glomerular Filt Rate 56 ml/min
--- NOTE | 2024-09-13 06:55 | PC.NURSE ---
End of shift note [id number]: Pt A&Ox4 and able to make needs known. Pt transferring/ambulating in room with rolling walker and gait belt. No c/o pain. Tele in place with NSR. Pt has required oxygen 2 LPM via NC in order to maintain O2 sats greater than 88% per order. Pt mostly incontinent of bladder. Bed alarm on and call light within reach. Door Liner placed Coloplast sacral protective dressing overnight due to pt?s urinary incontinence and blanchable redness observed to bilateral buttocks. EKG performed this AM per order with NSR with prolonged QT noted. ?
[2024-09-13 06:56] LABS: Anion Gap 8 mEq/L (7-15); Calcium* 9.8 mg/dL (8.4-10.6); Carbon Dioxide* 27 mmol/L (20-32); Glucose* 122 mg/dL (60-115); Magnesium* 1.5 mg/dL (1.5-2.6); Phosphorus* 3.3 mg/dL (2.5-4.5)
[2024-09-13 07:00] VITALS: BP 110/66; PULSE 85; PULSE 92; RESP 18; RESP 20; TEMP 36.6; O2SAT 90
[2024-09-13 07:06] LABS: NT Pro B Type NatriureticPept* 3750 pg/mL
[2024-09-13 07:12] LABS: Procalcitonin* 4.79 ng/mL (<0.50)
[2024-09-13 07:16] LABS: C Reactive Protein* 15.7 mg/dL (0.5-1.0); Troponin I* 0.18 ng/mL (0.01-0.04)
[2024-09-13] MEDS: levETIRAcetam 500 MG TABLET 750 MG PO ×2 (09:10→20:25)
[2024-09-13] MEDS: ASPIRIN 81 MG TABLET EC PO (09:10)
[2024-09-13] MEDS: glipiZIDE 2.5 MG ER TAB PO (09:10)
[2024-09-13] MEDS: METOPROLOL SUCCINATE (XL) 50 MG TAB PO (09:10)
[2024-09-13] MEDS: OMEPRAZOLE 20 MG CAPSULE DR PO ×2 (09:10→20:24)
[2024-09-13] MEDS: SODIUM CHLORIDE 0.9 % (FLUSH) 10 ML SYRINGE 5 ML IVF ×2 (09:11→20:23)
[2024-09-13] MEDS: SERTRALINE 100 MG TABLET PO (09:11)
[2024-09-13 09:47] VITALS: BMI 22.9
[2024-09-13 11:00] VITALS: BP 91/65; PULSE 95; RESP 18; TEMP 36.4; O2SAT 96
--- NOTE | 2024-09-13 14:26 | PM.IMPN1 ---
Progress Note: A&P Assessment and plan (1) Acute hypoxemic respiratory failure: Problem details: -does not ordinarily utilizes oxygen. -has been told in the past that she qualifies for oxygen supplementation with exertion but patient has declined such. -likely due to acute heart failure in association with non STEMI type 2 -continue with oxygen support -stop diuresis 09/13/24 -working with respiratory therapy to assess for home O2 need, which patient indicates she is willing to use if needed Status: Acute (2) Acute heart failure: Problem details: -acute pulmonary edema, likely due to non STEMI type 2 -increased diuresis efforts yesterday and appears stable today -monitor vital signs, weight, labs -will try to talk the patient into obtaining a transthoracic echocardiogram which she previously declined -for the time being were treating this as hypertensive heart disease with heart failure likely diastolic heart failure -patient declines any consideration for interventions other than medical management at this time -placed order for TTE on 09/13/24 Status: Acute (3) Elevated troponin: Problem details: -I suspect this is a non STEMI type 2 response: 0.18, 0.64, 0.21 with normal sinus rhythm without infarct or ischemic changes on ECG -continue to monitor troponin I's and electrocardiogram and telemetry -patient requests DNR DNI resuscitation status Status: Acute (4) COPD (chronic obstructive pulmonary disease): Problem details: -may have an element of right-sided heart failure and pulmonary hypertension as well that is contributing to her dyspnea an elevated troponin I Status: Chronic (5) Hypertension: Problem details: - holding home antihypertensives given hypotension, but consider restarting betablocker at lower dose Status: Chronic (6) Type 2 diabetes mellitus: Problem details: - 05/08/2024 hemoglobin A1c 7% - sliding-scale insulin in hospital Status: Chronic (7) Stage 3a chronic kidney disease: Problem details: - 05/08/2024 creatinine 0.95, baseline creatinine over the last few years is about 1-1.1 - creatinine is 0.8. Monitor. Status: Chronic (8) Anemia: Problem details: -hemoglobin 12 on 09/12/2024, 10 on 09/13/2024 -monitor Status: Acute (9) Hyponatremia: Problem details: -monitor as we intensify loop diuretic administration which preferentially excretes water over sodium -2000 ml fluid restriction initiated 09/13/24 Status: Acute Plan 1. Reviewed impression and recommendations with patient and daughter . 2. Patient prefers to return to her assisted living facility with increased services if possible and needed as opposed to a long term facility. Patient daughter agreeable. 3. Answered their questions to their satisfaction. 4. They are agreeable with above stated plans and recommendations . Subjective Date Seen: 09/13/24 Interval history: 09/13/2024: Hospital day 2. Denies dyspnea at rest. Denies cough. Denies syncope or near-syncope. Denies orthostasis. Denies nausea or vomiting. Denies chest heaviness, pressure, tightness, or pain. Denies paroxysmal nocturnal dyspnea or orthopnea. Acknowledges baseline dyspnea with exertion. Tolerating increased activities. Appetite is improving. Slept well. Feels rested today. Exam Narrative: Exam Narrative: I examine her in her hospital room. Appears comfortable and in no acute distress. Baseline hard of hearing with adequate vision. Alert and oriented x4. Lungs with some fine end inspiratory rales otherwise clear to auscultation. No wheezing or rhonchi. Chest wall excursions are full. Heart tones with regular rhythm, normal S1-S2. Abdomen with active bowel sounds, soft, nontender. Baseline level of trace pitting edema pretibially bilaterally. No focal motor neurologic deficits. Requiring low-flow O2 to maintain oxygen saturations at rest greater than 88%. Off of oxygen her saturations drop into the low 80s. Const: Vital Signs, click to edit/add: Vital Signs - 24 hr 09/12/24 15:00 09/12/24 15:00 09/12/24 15:00 Temperature 99.4 F Pulse Rate 84 Pulse Rate [Pulse Oximeter] 78 Respiratory Rate 20 20 Blood Pressure [Le ft Arm] 100/59 L Pulse Oximetry 96 Oxygen Delivery Me thod Nasal Cannula Oxygen Flow Rate 2 Fraction of Inspir ed Oxygen 35 09/12/24 19:00 09/12/24 22:51 09/12/24 23:00 Temperature 99.1 F Pulse Rate 88 Pulse Rate [Pulse Oximeter] 94 98 Respiratory Rate 20 18 Blood Pressure [Le ft Arm] 113/60 Pulse Oximetry 92 Oxygen Delivery Me thod Nasal Cannula Oxygen Flow Rate 2 Fraction of Inspir ed Oxygen 35 09/12/24 23:33 09/13/24 03:00 09/13/24 07:00 Temperature 97.6 F 97.9 F Pulse Rate 85 Pulse Rate [Pulse Oximeter] 98 81 Respiratory Rate 18 18 Blood Pressure [Le ft Arm] 103/63 129/70 Pulse Oximetry 90 92 Oxygen Delivery Me thod Nasal Cannula Nasal Cannula Oxygen Flow Rate 2 2 Fraction of Inspir ed Oxygen 09/13/24 07:00 09/13/24 07:00 09/13/24 07:00 Temperature 97.8 F Pulse Rate Pulse Rate [Pulse Oximeter] 92 92 Respiratory Rate 18 20 20 Blood Pressure [Le ft Arm] 110/66 Pulse Oximetry 90 90 Oxygen Delivery Me thod Nasal Cannula Nasal Cannula Oxygen Flow Rate 2 2 Fraction of Inspir ed Oxygen 09/13/24 11:00 Temperature 97.6 F Pulse Rate Pulse Rate [Pulse Oximeter] 95 Respiratory Rate 18 Blood Pressure [Le ft Arm] 91/65 Pulse Oximetry 96 Oxygen Delivery Me thod Nasal Cannula Oxygen Flow Rate 2 Fraction of Inspir ed Oxygen Labs Labs: Laboratory Results - last 24 hr 09/13/24 06:10 WBC 9.78 RBC 3.28 L Hgb 10.3 L Hct 31.4 L MCV 96 MCH 31 MCHC 33 Plt Count 189 VBG pH 7.376 VBG pCO2 49 VBG pO2 53.3 H VBG HCO3 29 H Sodium 129 L Potassium 3.8 Chloride 94 L Carbon Dioxide 27 Anion Gap 8 BUN 32 H Creatinine 1.0 Estimated Creat Clear 30.08 Estimated GFR 56 Glucose 122 H Lactate 0.7 Calcium 9.8 Phosphorus 3.3 Magnesium 1.5 Troponin I 0.18 H* C-Reactive Protein 15.7 H NT-Pro-B Natriuret Pep 3750 Procalcitonin 4.79 H
[2024-09-13 15:00] VITALS: BP 111/62; PULSE 85; PULSE 94; RESP 18; TEMP 36.6; O2SAT 95
[2024-09-13] MEDS: ACETAMINOPHEN 325 MG TABLET 650 MG PO ×2 (15:01→20:35)
--- NOTE | 2024-09-13 19:00 | PC.NURSE ---
End of shift: Patient is pleasant and cooperative. Patient alert and oriented, VSS, on 1 L NC. Patient tolerating a reg. diet. Patient ambulates to BR using 4 ww. SBA. Patient on 1999 fluid restriction. IV in L AC SL. Afebrile this shift.
[2024-09-13 20:20] VITALS: BP 113/59; PULSE 83; RESP 20; TEMP 37.3; O2SAT 91
[2024-09-13] MEDS: ROSUVASTATIN CALCIUM 10 MG TABLET 20 MG PO (20:22)
[2024-09-13] MEDS: clonazePAM 0.5 MG TABLET 0.75 MG PO (20:24)
[2024-09-13 23:00] VITALS: BP 132/70; PULSE 81; RESP 18; TEMP 36.8; O2SAT 90
[2024-09-14 00:30] VITALS: O2SAT 88
[2024-09-14 03:00] VITALS: BP 121/64; PULSE 77; RESP 20; TEMP 36.9; O2SAT 91
[2024-09-14 06:44] LABS: Hematocrit 33.7 % (33.0-51.0); Hemoglobin* 11.1 gm/dL (12.0-16.0); Mean Corpuscular HGB Conc 33 gm/dL (32-36); Mean Corpuscular Hemoglobin 31 pg (26-34); Mean Corpuscular Volume 96 fL (80-100); Platelet Count* 211 K/uL (140-440); Red Blood Count 3.53 m/uL (4.00-5.20); White Blood Count* 7.81 K/uL (4.50-11.00)
[2024-09-14 06:47] LABS: Slide Review Reflex No
--- NOTE | 2024-09-14 06:59 | PC.NURSE ---
End of shift summary: Pt has been A&O, afebrile and VSS overnight. She required 1-2L oxygen via NC to maintain > 88%. She is SBA with gait belt & walker to BR. Continent/incontinent of urine which is baseline for her. TELE read sinus arrhythmia. Pt slept well in between cares. No c/o SOB, nausea or dizziness. PIV in left AC SL and C/D/I. PRN Tylenol given @ bedtime d/t arthralgia. ECHO ordered for 09/14. ?
[2024-09-14 07:00] VITALS: BP 142/74; PULSE 75; PULSE 89; RESP 18; TEMP 37.4; O2SAT 90
[2024-09-14 07:18] LABS: Chloride* 97 mmol/L (96-114); Potassium* 3.7 mmol/L (3.6-5.1); Sodium* 133 mmol/L (135-149)
[2024-09-14 07:21] LABS: Blood Urea Nitrogen* 26 mg/dL (7-30); Creatinine* 0.9 mg/dL (0.5-1.5); Est. Creatinine Clearance* 30.08; Estimated Glomerular Filt Rate 63 ml/min
[2024-09-14 07:22] LABS: Anion Gap 8 mEq/L (7-15); Calcium* 9.9 mg/dL (8.4-10.6); Carbon Dioxide* 28 mmol/L (20-32); Glucose* 127 mg/dL (60-115); Magnesium* 1.5 mg/dL (1.5-2.6); Phosphorus* 3.3 mg/dL (2.5-4.5)
[2024-09-14 07:24] LABS: C Reactive Protein* 8.7 mg/dL (0.5-1.0)
[2024-09-14] MEDS: glipiZIDE 2.5 MG ER TAB PO (08:41)
[2024-09-14] MEDS: SERTRALINE 100 MG TABLET PO (08:41)
[2024-09-14] MEDS: METOPROLOL SUCCINATE (XL) 50 MG TAB PO (08:41)
[2024-09-14] MEDS: FEXOFENADINE 180 MG TABLET PO (08:41)
[2024-09-14] MEDS: ASPIRIN 81 MG TABLET EC PO (08:41)
[2024-09-14] MEDS: FERROUS SULFATE 325 MG TABLET 324 MG PO (08:41)
[2024-09-14] MEDS: levETIRAcetam 500 MG TABLET 750 MG PO (08:41)
[2024-09-14] MEDS: OMEPRAZOLE 20 MG CAPSULE DR PO (08:42)
[2024-09-14] MEDS: SODIUM CHLORIDE 0.9 % (FLUSH) 10 ML SYRINGE 5 ML IVF (08:42)
[2024-09-14 11:00] VITALS: BP 120/67; PULSE 90; RESP 20; TEMP 36.8; O2SAT 91
--- NOTE | 2024-09-14 14:04 | PC.NURSE ---
Discharge note have spoken with Denise from [facility] twice today to coordinator discharge for this patient. Packet of information sent with daughter and also faxed orders to Denise.
--- NOTE | 2024-09-14 17:00 | PM.DS1 ---
DS: Providers Provider Date Seen: 09/14/24 Date of admission: 09/12/24 09:29 Primary care physician: Vikki Cope MD Admitting Clinician: Liu Witt MD Consults: 09/12/24 09:29 Consult to Nutrition [CONS] Routine Comment: Reason for consult:: Weight Loss Consult to Occupational Therapy [CONS] Routine Comment: Reason(s) for OT Consult:: Evaluate and Treat Any Restrictions?:: No Restrictions Consult to Physical Therapy [CONS] Routine Comment: Reason(s) for PT Consult:: Evaluate and Treat Any Restrictions?:: No Restrictions Consult to [place] [facility] [CONS] Routine Comment: Reason for Consult:: Discharge Planning Needs Attending Physician on discharge: Liu Witt MD Date of Discharge: 09/14/24 DS: Diagnosis Discharge Diagnosis (1) Acute hypoxemic respiratory failure: Status: Acute Problem details: -does not ordinarily utilizes oxygen. -has been told in the past that she qualifies for oxygen supplementation with exertion but patient has declined such. -likely due to acute heart failure in association with non STEMI type 2 -continue with oxygen support -stop diuresis 09/13/24 -not requiring oxygen supplementation therapy as of 09/14/2024 even with exertion (2) Acute heart failure: Status: Acute Problem details: -acute pulmonary edema, likely due to non STEMI type 2 -increased diuresis efforts yesterday and appears stable today -monitor vital signs, weight, labs -will try to talk the patient into obtaining a transthoracic echocardiogram which she previously declined -for the time being were treating this as hypertensive heart disease with heart failure likely diastolic heart failure -patient declines any consideration for interventions other than medical management at this time -placed order for TTE on 09/13/24, but patient declined obtaining -at minimum has diastolic heart failure (3) Elevated troponin: Status: Acute Problem details: -I suspect this is a non STEMI type 2 response: 0.18, 0.64, 0.21 with normal sinus rhythm without infarct or ischemic changes on ECG -continue to monitor troponin I's and electrocardiogram and telemetry -patient requests DNR DNI resuscitation status (4) CHF (congestive heart failure): Status: Acute Problem details: -patient continues to decline echocardiogram assessment (5) Hyponatremia: Status: Acute Problem details: -monitor as we intensify loop diuretic administration which preferentially excretes water over sodium -2000 ml fluid restriction initiated 09/13/24 while in hospital (6) Anemia: Status: Acute Problem details: -hemoglobin 12 on 09/12/2024, 10 on 09/13/2024 -monitor (7) COPD (chronic obstructive pulmonary disease): Status: Chronic Problem details: -may have an element of right-sided heart failure and pulmonary hypertension as well that is contributing to her dyspnea an elevated troponin I (8) Stage 3a chronic kidney disease: Status: Chronic Problem details: - 05/08/2024 creatinine 0.95, baseline creatinine over the last few years is about 1-1.1 - creatinine is 0.8. Monitor. (9) Hyperlipidemia: Status: Chronic Problem details: - on statin (10) Hypertension: Status: Chronic Problem details: - holding home antihypertensives given hypotension, but consider restarting betablocker at lower dose (11) Type 2 diabetes mellitus: Status: Chronic Problem details: - 05/08/2024 hemoglobin A1c 7% - sliding-scale insulin in hospital DS: Summary Hospital Course Hospital Course: Admission history of present illness: ?84 year old woman who presented to the [facility] Emergency Department via EMS early this morning with sudden onset of dyspnea. She had been feeling well throughout the day yesterday, including when she went to bed yesterday evening. No recent infectious illnesses, upper or lower respiratory tract symptoms, gastrointestinal or genitourinary tract symptoms, trauma or injury, blood loss of any sort. ?Awoke around 3:00 a.m. this morning with sudden onset of shortness of breath. Notified staff where she resides who called EMS. On 1st assessment they indicated her resting room air oxygen saturation was 68%. Patient indicated she could not catch her breath. Administer DuoNeb and ondansetron. On arrival to the emergency department she was still requiring a fair amount of oxygen support and she was placed on high-flow oxygen with FiO2 initially 100%. Slowly titrated thereafter to flow of 30 L per minute and FiO2 of 35% to maintain resting oxygen saturation around 90%. ?Denies chest heaviness, pressure, tightness, or pain. No recent cough. No recent paroxysmal nocturnal dyspnea orthopnea except for when she awoke short of breath today. No change in lower extremity edema which she states is chronic. ?Troponin I elevated at 0.2 on assessment in the emergency department. Electrocardiogram demonstrated sinus tachycardia without ischemic or infarct pattern. CT scan with PE protocol demonstrated no obvious pulmonary emboli with what appears to be interstitial pulmonary edema. Treated with IV furosemide. Condition stabilized. Discussion was undertaken in the emergency department with the patient and her daughter about possible transfer to a tertiary medical care facility. Patient made it very clear that she does not want to be transferred to any other hospital. She indicates she is ready to if this is her time to . She is agreeable to staying at [facility] and treated medically but without any heroic measures. [place] that she wants to have DNR DNI resuscitation status. This is not new for the patient. Daughter confirms that her mother has held these desires for some time. Transferred to Hospital medical floor for further management and support.? Within 24 hours her condition stabilized substantially. Within 48 hours she no longer required oxygen supplementation. She declined additional testing and requested simply to be CT medically managed if at all possible. Daughter concurred. Status at Discharge Functional status at discharge: uses cane/walker Overall status at discharge: patient is progressing back to baseline Time Spent with Patient Time attestation: Total time spent providing and/or coordinating discharge services: Time spent: Greater than 30 minutes Exam Narrative: Exam Narrative: I examine her in her hospital room. Appears comfortable and in no acute distress. Baseline hard of hearing with adequate vision. Alert and oriented x4. Lungs with some fine end inspiratory rales otherwise clear to auscultation. No wheezing or rhonchi. Chest wall excursions are full. Heart tones with regular rhythm, normal S1-S2. Abdomen with active bowel sounds, soft, nontender. Baseline level of trace pitting edema pretibially bilaterally. No focal motor neurologic deficits. Resting room air oxygen saturations 92-93%. Oxygen saturations remain 90-92% with exertion. On date of discharge weight is 52.9 kg. Admission weight was 53.5 kg. Const: Vital Signs, click to edit/add: Vital Signs - 24 hr 09/13/24 20:20 09/13/24 23:00 09/13/24 23:00 Temperature 99.1 F Pulse Rate 81 Pulse Rate [Pulse Oximeter] 83 81 Respiratory Rate 20 18 Blood Pressure [Ri ght Arm] 113/59 L Pulse Oximetry 91 Oxygen Delivery Me thod Nasal Cannula Oxygen Flow Rate 1 09/13/24 23:00 09/13/24 23:00 09/14/24 00:30 Temperature 98.3 F Pulse Rate Pulse Rate [Pulse Oximeter] 81 Respiratory Rate 18 18 Blood Pressure [Ri ght Arm] 132/70 Pulse Oximetry 90 90 88 Oxygen Delivery Me thod Nasal Cannula Nasal Cannula Nasal Cannula Oxygen Flow Rate 2 2 1 09/14/24 03:00 09/14/24 07:00 09/14/24 07:00 Temperature 98.5 F Pulse Rate 75 Pulse Rate [Pulse Oximeter] 77 Respiratory Rate 20 Blood Pressure [Ri ght Arm] 121/64 Pulse Oximetry 91 90 Oxygen Delivery Me thod Nasal Cannula Room Air Oxygen Flow Rate 1 09/14/24 07:00 09/14/24 07:00 09/14/24 11:00 Temperature 99.4 F 98.3 F Pulse Rate Pulse Rate [Pulse Oximeter] 89 89 90 Respiratory Rate 18 18 20 Blood Pressure [Ri ght Arm] 142/74 H 120/67 Pulse Oximetry 90 91 Oxygen Delivery Me thod Room Air Room Air Oxygen Flow Rate DS: Data Data Completed and Pending Completed studies during hospitalization: Procedures Introduction of Other Gas into Respiratory Tract, Via Natural or Artificial Opening (05/14/24) Labs on day of discharge: Labs from last 24 hours 09/14/24 05:56 WBC 7.81 RBC 3.53 L Hgb 11.1 L Hct 33.7 MCV 96 MCH 31 MCHC 33 Plt Count 211 Sodium 133 L Potassium 3.7 Chloride 97 Carbon Dioxide 28 Anion Gap 8 BUN 26 Creatinine 0.9 Estimated Creat Clear 30.08 Estimated GFR 63 Glucose 127 H Calcium 9.9 Phosphorus 3.3 Magnesium 1.5 C-Reactive Protein 8.7 H Procalcitonin 2.50 H Preliminary micro results at discharge 09/12/24 05:25 Blood Culture - Preliminary Blood NO GROWTH AFTER 48 HOURS 09/12/24 05:20 Blood Culture - Preliminary Blood NO GROWTH AFTER [address] scan - chest: Radiologist's impression: 1. Enlarged heart. Median sternotomy. 2. No findings of pulmonary embolus. 3. Lung findings likely indicating interstitial and alveolar edema with bibasilar atelectasis and scant effusions. Occasionally, a diffuse atypical inflammatory process can create this appearance. Discharge Plan Discharge Disposition: [facility] Date of Admission: 09/12/24 09:29 Attending Provider on Discharge: Liu Witt Primary Care Provider: Vikki Cope Condition: Improved Anticipated Discharge Date/Time: 09/14/24 13:00 Discharge Medications: New albuterol sulfate 2.5 mg/0.5 mL solution for nebulization 2.5 mg inhalation Q4H Qty: 30 2RF Rx Instructions: for up to 3 doses metoprolol succinate 50 mg tablet extended release 24 hr 50 mg PO DAILY Qty: 30 2RF Continued lidocaine 5 % adhesive patch,medicated 1 patch topical DAILY mirabegron [Myrbetriq] 25 mg tablet extended release 24 hr 25 mg PO DAILY sertraline 100 mg tablet 100 mg PO DAILY clonazepam 0.5 mg tablet 0.75 mg PO HS amiloride 5 mg tablet 5 mg PO DAILY levetiracetam 250 mg tablet 750 mg PO BID glipizide 2.5 mg tablet extended release 24hr 2.5 mg PO DAILY nitroglycerin 0.4 mg tablet, sublingual 0.4 mg sublingual Q5M PRN omeprazole 20 mg capsule,delayed release(DR/EC) 20 mg PO BID nystatin [Nystop] 100,000 unit/gram powder 1 applic topical BID PRN rosuvastatin 20 mg tablet 20 mg PO QPM aspirin 325 mg tablet 325 mg PO DAILY fexofenadine [Aarti Allergy] 60 mg tablet 60 mg PO QAM ferrous gluconate 324 mg (38 mg iron) tablet 324 mg PO MOTH folic acid 400 mcg tablet 400 mcg PO DAILY Glucosamine Chondroitin 550-30-1 mg capsule 2 cap PO DAILY loperamide 2 mg tablet 2 mg PO Q1-2H PRN Rx Instructions: administer after each loose stool until symptoms controlled; do not exceed 8 mg per 24 hrs thnhts-oxujyttqsm-ycotesqv ext 20-1-2.2 mg capsule 1 cap PO DAILY magnesium glycinate 100 mg magnesium capsule 2,400 mg PO DAILY Rx Instructions: non hospital supplement, patient take 6, 400 mg tabs daily Discontinued metoprolol succinate 100 mg tablet extended release 24 hr 100 mg PO DAILY Discharge Orders: Discharge Order (Routine); Ordered 09/14/24 Ordered By: Liu Witt Additional Instructions: 1. Follow-up with primary care physician in 1-2 weeks 2. Return to clinic or hospital sooner if needed 3. Continue with services already in place at the Assisted Living facility, and recommend increased support with dressing/undressing in AM and PM and toileting for a short period of time Activity Level: Activity as Tolerated Discharge Diet: Regular Follow Up Appointments: Vikki Cope MD [Primary Care Provider] - Forms: [facility] Info Instructions Admit to: Assisted Living Discharge Potential: Poor Length of Stay: >90 days Can use facility standing orders?: Yes Code Status: DNR/DNI Rehab Potential: Fair Therapy: Physical Therapy and Occupational Therapy Therapy Orders: Evaluate and Treat Oxygen: No Urinary Catheter: No Orders are good >30 days: Yes Signature: Liu Witt
== END 2024-09-14 14:06 | DRG 280 ==
LOC: ED 07:51 → MEDSURG 08:38
PROVIDERS: Admitting Provider Internal Medicine; Emergency Provider Family Medicine; PCP Family Medicine; Visit Provider Internal Medicine
DX: I13.0 Hypertensive heart and chronic kidney disease with heart failure and stage 1 through stage 4 chronic kidney disease, or unspecified chronic kidney disease (principal); I50.31 Acute diastolic (congestive) heart failure; I21.A1 Myocardial infarction type 2; J96.01 Acute respiratory failure with hypoxia; E87.1 Hypo-osmolality and hyponatremia; N18.31 Chronic kidney disease, stage 3a; E11.22 Type 2 diabetes mellitus with diabetic chronic kidney disease; D64.9 Anemia, unspecified; M51.379 Other intervertebral disc degeneration, lumbosacral region without mention of lumbar back pain or lower extremity pain; J44.9 Chronic obstructive pulmonary disease, unspecified; F32.9 Major depressive disorder, single episode, unspecified; F41.1 Generalized anxiety disorder; M48.07 Spinal stenosis, lumbosacral region; M06.9 Rheumatoid arthritis, unspecified; E78.5 Hyperlipidemia, unspecified; M79.7 Fibromyalgia; Z66 Do not resuscitate
CPT/HCPCS: 36415; 71046; 71275; 80048; 80076; 81001; 82803; 83605; 83690; 83735; 83880; 84100; 84145; 84295; 84484; 85025; 85027; 85379; 85610; 85730; 86140; 87040; 87631; 93005; 94640; 94761; 97110; 97161; 97166; 97530; 97535; 99285; 99291; A9270; J1940; J1956; Q9967

== ENCOUNTER 2025-01-16 18:57 | Emergency (ER) | payer MEDICARE, SELFPAY ==
--- OUTSIDE RECORDS SUMMARY | 2025-01-16 19:02 | XMS_ITS | Clinical Summary ---
Author Organization [facility] Address [address] [place] [id number] Care Team Providers Care Process Plant Operator Name Role Phone Vikki Cardoza MD Primary Care Provide r Allergies Active Allergy Reactions Criticality Noted Date Comments Codeine Confusion,Other - De scribe In Comment Field High 09/12/2007 Penicillins Rash High 05/09/2009 Medications Diabetic Supplies, Miscellan.Indicat ions:Type II or unspecified type diabetes mellitus without mention of complication, not stated as uncontrolled (HC) by Injection route. Dispense glucose meter, test [...] mention of complication, not stated as uncontrolled (HC) Dispense glucose meter, test strips and lancets. [...] Active aspirin 325 mg tabletIndications :CAD in as[place] artery Take 1 Tablet (325 mg) by [...] daily. 0 06/24/20 21 Active glucos sul 1DDc-vbr-bfayb-C- [place] (Glucosamine Chondroitin) 550-30-1 mg cap Take [...] 99 months 1 Each 12/30/19 24 Active nitroglycerin (Nitrostat) 0.4 mg sublingual [...] bedtime. 90 Tablet 3 07/13/20 24 Active levETIRAcetam (KEPPRA) 250 mg tabletIndications :Chorea Take 3 Tablets (750 mg) by mouth two times daily. 540 Tablet 3 09/05/19 25 Active hydrocortisone 2.5 % creamIndications: [...] 3-5 times per day, 09/05/19 25 Active mirabegron EXTENDED-release (Myrbetriq) 25 mg tabletIndications :Mixed stress and urge urinary incontinence Take 1 Tablet (25 mg) by mouth once daily. 30 Tablet 5 10/11/19 25 Active omeprazole 20 mg Delayed-Release capsuleIndication s:Chronic GERD Take 1 Capsule (20 mg) by mouth once daily before a meal. 100 Capsule 3 12/20/19 25 Active glipiZIDE extended-release 2.5 mg Extended-Release tabletIndications :Type 2 diabetes mellitus without complication, without long-term current use of insulin (HC) Take 1 Tablet (2.5 mg) by mouth once daily before a meal. 100 Tablet 3 12/20/19 25 Active clonazePAM 0.5 mg tabletIndications :Chorea TAKE 1 AND 1/2 TABLETS BY MOUTH AT BEDTIME 135 Tablet 1 12/20/19 25 Active metoprolol succinate 50 mg sustained-release tabletIndications :Essential hypertension Take 1.5 Tablets (75 mg) by mouth once daily. 135 Tablet 3 12/20/19 25 Active ferrous gluconate 324 mg (37 mg iron) tabletIndications :Anemia of unknown etiology Take Wednesday, Wednesday and Wednesday12/20/19 25 Active metoprolol succinate (TOPROL XL) 100 mg Sustained-Release tabletIndications :Essential hypertension Take 1 Tablet (100 mg) by mouth once daily. 90 Tablet 3 03/02/20 24 025 Discontin ued(Reord er (E-cancel not sent)) glipiZIDE extended-release (GLUCOTROL XL) 2.5 mg Extended-Release tabletIndications :Type 2 diabetes mellitus without complication, without long-term current use of insulin (HC) Take 1 Tablet (2.5 mg) by mouth once daily before a meal. 90 Tablet 3 03/02/20 24 025 Discontin ued(Reord er (E-cancel not sent)) omeprazole (PRILOSEC) 20 mg Delayed-Release capsuleIndication s:Chronic GERD Take 1 Capsule (20 mg) by mouth two times daily before meals. 180 Capsule 3 03/02/20 24 025 Discontin ued(Reord er (E-cancel not sent)) clonazePAM (KLONOPIN) 0.5 mg tabletIndications :Chorea TAKE 1 AND 1/2 TABLETS BY MOUTH AT BEDTIME 135 Tablet 1 07/19/19 25 025 Discontin ued(Reord er (E-cancel not sent)) ferrous gluconate 324 mg (37 mg iron) tabletIndications :Anemia of unknown etiology Take 09/05/19 25 025 Discontin ued(Reord er (E-cancel not sent)) metoprolol succinate 100 mg Sustained-Release tabletIndications :Essential hypertension Take 1 Tablet (100 mg) by mouth once daily. 100 Tablet 3 12/20/19 25 025 Discontin ued(*Med complete/ Regimen complete/ [...] Encounters Date Type Department Care Team Description 01/16/2025 Telephone [facility] [address] [place] [address] Vikki Cardoza MD Outside Order (UA) 12/19/2024 10:05 AM CDT Office Visit [facility] [address] [place] [address] Vikki Cardoza MD Results (Discuss results/Increased to 3 iron pills a week/Has been a good 3 months) 12/19/2024 Travel 12/06/2024 10:00 AM CDT Ancillary Procedure [facility] [address] [place] [address] 12/06/2024 9:40 AM CDT Orders Only [facility] [address] [facility] [address] [place] [address] Lab 12/06/2024 Travel 11/22/2024 Refill [facility] [address] [place] [address] Vikki Cardoza MD Refill Request (Omeprazole) 11/20/2024 Refill [facility] [address] [place] [address] Vikki Cardoza MD Refill Request (Omeprazole) from Last 3 Months Immunizations Immunization Administration Dates Next Due COVID-19 vaccine (Pfizer-Bio [...] on file Legal 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 Gender Identity Not on file Sexual Orientation Not on file Obstetrics History Last Filed Vital Signs Vital Sign Reading Time Taken Comments Blood Pressure 91/55 12/19/2024 10:25 AM CDT Pulse 77 12/19/2024 10:25 AM CDT Temperature 37 C (98.6 F) 05/23/2024 10:41 AM DICE SPOTTER Respiratory Rate 18 08/01/2019 10:4 2 AM DICE SPOTTER Oxygen Saturation 95% 12/19/2024 10: 25 AM CDT Inhaled Oxygen Concentration - - Weight 52.2 kg (115 lb) 12/19/2024 10:2 5 AM CDT 2 weeks ago at home Height 149.9 cm (4' 11) 03/02/2024 10: 44 AM CDT Body Mass Index 23.23 03/02/2024 10:44 AM CDT Plan of Treatment Upcoming Encounters Date Type Department Care Team (Late st Contact Info) Description 03/14/2025 10:15 AM CDT Orders Only [facility] [address] [place] [address] [place], [place] 03/20/2025 10:05 AM CDT Office Visit [facility] [address] [place] [address] Vikki Cardoza MD [address] [place] [address] Health Maintenance Due Date Last Done Comments Pneumococcal series for age 50+ (1 of 2 - PCV) 1959 Zoster (shingles) series for age 50+ (1 of 2) 1990 RSV vaccine for adults or (1 - 1-dose 75+ series) 2015 COVID-19 vaccine series ( season) 2024 05/08/2024, 05/05/2022, 12/04/2021, Additional history exists BMI (ht and wt on same day) for age 18+ 03/02/2025 03/02/2024, 11/05/2022, 05/13/2021, Additional history exists Depression screening for age 12+ 03/02/2025 03/02/2024, 11/05/2022, 11/03/2022, Additional history exists Influenza Vaccine (#1) 2025 , 06/24/2022, 05/13/2021 Medicare Wellness for age 65+ 02/15/2026 Postponed from 2005 (Patient discretion) Tetanus booster 05/20/2032 05/20/2022, 11/17 (Postponed) DEXA/DXA scan for age 65+ Addressed 12/05/2010 (Dec lined) Overridden with the intention of not completing the topic Hepatitis B series for 19+ Aged Out N o longer eligible based on patient's age to complete this topic Procedures Procedure Name Priority Date/Time Associated Diagnosis Comments ECHO TTE COMPLETE WO CONTRAST Routine 12/06/2024 10:55 AM CDT SOB (shortness of breath) HEMOGLOBIN A1C MONITORING (POCT) Routine 12/06/2024 10:08 AM CDT Type II or unspecified type diabetes mellitus without mention of complication, not stated as uncontrolled BASIC METABOLIC PANEL Routine 12/06/2024 10:08 AM CDT Type II or unspecified type diabetes mellitus without mention of complication, not stated as uncontrolled PRO-BNP Routine 12/06/2024 10:08 AM CDT Acute systolic CHF (congestive heart failure) (HC) from Last 3 Months Results * ECHO TTE COMPLETE WO CONTRAST (12/06/2024 10:55 AM CDT) AORTIC VALVE MEAN PG 8 mmHg PEAK TR VELOCITY 2.0 m/s LVEDD 4.2 cm EJECTION FRACTION 55 - 60% Anatomical Region Laterality Modality Ultrasound 12/06/2024 10:2 1 AM CDT Narrative 12/06/2024 11:18 AM CDT ECHOCARDIOGRAM MAISHA GRAYSON : 1940 84 years Study Date: 12/06/2024 10:21:31 AM Gender: F BP: 97/62 mmHg Height: 149.86 cm BSA: 1.44 m Weight: 50.80 kg Tech: ROSEANN Referring MD: VIKKI CARDOZA Site: [facility] Reading Location: MOBILE - OP Patient Location: Outpatient. Procedure: 2D, Color Doppler and Spectral Doppler. Indication for study: SOB Cardiac Rhythm: Normal sinus.Study quality: Technically limited. Imaging limitations: This study was subject to imaging limitations due to body habitus and a prominent lung artifact. Final Impressions: 1. Technically limited exam. 2. Normal LV size, normal wall thickness, normal global systolic function with an estimated EF of 55 - 60%. 3. Basal inferior wall hypokinesis. 4. Moderately enlarged left atrium. 5. Right ventricular cavity size is normal, global systolic RV function is moderately reduced. 6. The aortic valve is not well visualized (possibly functionally bicupsid) and calcified, mild stenosis and trivial regurgitation. 7. The mitral valve is sclerotic, mild mitral regurgitation. Mean gradient 2 mmHg at 70 bpm. Chamber Sizes and Function Normal left ventricular size, normal wall thickness, normal global systolic function with an estimated EF of 55 - 60%. No resting regional wall motion abnormality visualized. False tendon in left ventricular apex - nonpathologic finding. Left atrial size is moderately enlarged. Right ventricular cavity size is normal, global systolic RV function is moderately reduced. RV wall thickness is normal. The right atrium is normal. The pulmonary artery is of normal size and origin. The sinus of Valsalva is normal sized. The ascending aorta is normal sized. Valves, RV Pressures and Diastolic Function The aortic valve is not well visualized and calcified, mild stenosis and trivial regurgitation. The mitral valve is sclerotic, mild mitral regurgitation. Mitral annular calcification is present. Indeterminate pattern of LV diastolic filling. The tricuspid valve is normal in structure, trace tricuspid regurgitation. The tricuspid regurgitant velocity is 2.0 m/s, the estimated right ventricular systolic pressure is 15 mmHg plus right atrial pressure. The pulmonic valve is normal. Trace pulmonary regurgitation. Masses, Effusion, Shunts There is no pericardial effusion. The inferior vena cava is normal sized, respiratory size variation greater than 50%. No left to right shunting was detected by limited color flow Doppler interrogation of the interatrial septum. MEASUREMENTS AND CALCULATIONS 2-D Measurements and LV Function: LVID (d) 4.2 cm LV FS% (2D) 48 % LVID (s) 2.2 cm LVOT diameter 2.0 cm IVS (d) 0.7 cm HR 73 bpm LVPW (d) 0.8 cm LA Vol index 47 ml/m2 Ao Sinus 2.6 cm RV Basal Diam 3.2 cm Ao Sinus ULN 3.6 cm * Asc Ao 3.3 cm Asc Ao ULN 3.8 cm * * Input age outside of range, reported values correspond to Age = 80 Diastology: Mitral Tissue Doppler E Peak 1.1 m/s e', Septum 0.06 m/s A Peak 1.0 m/s e', Lateral 0.12 m/s E/A 1.0 E/e' Average 12.09 DT 240 msec Aortic Valve: Vmax 1.8 m/s SEDA (V) 1.58 cm VTI 0.42 m SEDA (I) 1.59 cm LVOT V max 0.9 m/s Max PG 13 mmHg LVOT VTI 0.21 m Mean PG 8 mmHg SV 67 ml Dim Index 0.51 SV index 46 ml/m CO 4.9 l/min CI 3.4 l/min/m Mitral Valve: MVA 3.2 cm MV P 1/2 70 msec MV Mean G 2 mmHg Tricuspid Valve and estimated PA pressures: TR Vmax 2.0 m/s TAPSE 1.1 cm TR maxG 15 mmHg . This study was interpreted by an [facility] accredited facility. Final Procedure Note Patricia Mata MD - 12/06/2024 ECHOCARDIOGRAM MAISHA GRAYSON : 1940 84 years Study Date: 12/06/2024 10:21:31 AM Gender: F BP: 97/62 mmHg Height: 149.86 cm BSA: 1.44 m Weight: 50.80 kg Tech: ROSEANN Referring MD: VIKKI CARDOZA Site: [facility] Reading Location: MOBILE - OP Patient Location: Outpatient. Procedure: 2D, Color Doppler and Spectral Doppler. Indication for study: SOB Cardiac Rhythm: Normal sinus.Study quality: Technically limited. Imaging limitations: This study was subject to imaging limitations due tobody habitus and a prominent lung artifact. Final Impressions: 1. Technically limited exam. 2. Normal LV size, normal wall thickness, normal global systolic functionwith an estimated EF of 55 - 60%. 3. Basal inferior wall hypokinesis. 4. Moderately enlarged left atrium. 5. Right ventricular cavity size is normal, global systolic RV functionis moderately reduced. 6. The aortic valve is not well visualized (possibly functionallybicupsid) and calcified, mild stenosis and trivial regurgitation. 7. The mitral valve is sclerotic, mild mitral regurgitation. Meangradient 2 mmHg at 70 bpm. Chamber Sizes and Function Normal left ventricular size, normal wall thickness, normal globalsystolic function with an estimated EF of 55 - 60%. No resting regionalwall motion abnormality visualized. False tendon in left ventricular apex- nonpathologic finding. Left atrial size is moderately enlarged. Rightventricular cavity size is normal, global systolic RV function ismoderately reduced. RV wall thickness is normal. The right atrium isnormal. The pulmonary artery is of normal size and origin. The sinus ofValsalva is normal sized. The ascending aorta is normal sized. Valves, RV Pressures and Diastolic Function The aortic valve is not well visualized and calcified, mild stenosis andtrivial regurgitation. The mitral valve is sclerotic, mild mitralregurgitation. Mitral annular calcification is present. Indeterminatepattern of LV diastolic filling. The tricuspid valve is normal instructure, trace tricuspid regurgitation. The tricuspid regurgitantvelocity is 2.0 m/s, the estimated right ventricular systolic pressure is15 mmHg plus right atrial pressure. The pulmonic valve is normal. Tracepulmonary regurgitation. Masses, Effusion, Shunts There is no pericardial effusion. The inferior vena cava is normal sized,respiratory size variation greater than 50%. No left to right shunting wasdetected by limited color flow Doppler interrogation of the interatrialseptum. MEASUREMENTS AND CALCULATIONS 2-D Measurements and LV Function: LVID (d) 4.2 cm LV FS% (2D) 48% LVID (s) 2.2 cm LVOT diameter2.0 cm IVS (d) 0.7 cm HR 73bpm LVPW (d) 0.8 cm LA Vol index 47ml/m2 Ao Sinus 2.6 cm RV Basal Diam3.2 cm Ao Sinus ULN 3.6 cm * Asc Ao 3.3 cm Asc Ao ULN 3.8 cm * * Input age outside of range, reported values correspond to Age = 80 Diastology: Mitral Tissue Doppler E Peak 1.1 m/s e', Septum 0.06 m/s A Peak 1.0 m/s e', Lateral 0.12 m/s E/A 1.0 E/e' Average 12.09 DT 240 msec Aortic Valve: Vmax 1.8 m/s SEDA (V) 1.58 cm VTI 0.42 m SEDA (I) 1.59 cm LVOT V max 0.9 m/s Max PG 13 mmHg LVOT VTI 0.21 m Mean PG 8 mmHg SV 67 ml Dim Index 0.51 SV index 46 ml/m CO 4.9 l/min CI 3.4 l/min/m Mitral Valve: MVA 3.2 cm MV P 1/2 70 msec MV Mean G 2 mmHg Tricuspid Valve and estimated PA pressures: TR Vmax 2.0 m/s TAPSE 1.1 cm TR maxG 15 mmHg . This study was interpreted by an [facility] accredited facility. Final us Vikki Cardoza MD ECHO ORD Final Result * PRO-BNP (12/06/2024 10:08 AM CDT) NT PROBNP 325 <450 pg/mL [facility] Blood BLOOD SPECIMEN / Unknown 12/06/2024 10:08 AM CDT 12/06/2024 10:08 AM CDT Vikki Cardoza MD SEND OUTS Final Result Performing Organization Address City/[facility]/ZIP Co de Phone Number [employer] [facility] [address] [place] [address], [facility] [address] [place] [address] * (ABNORMAL) HEMOGLOBIN A1C MONITORING (POCT) (12/06/2024 10:08 AM CDT) [facility] POC HEMOGLOBIN A1C 6.8(H) <6.0 % OF TOTAL HGB [facility] ( Comment: Any point of care results exhibiting inconsistency with the patient's clinical status should be repeated using a different testing method. Blood BLOOD SPECIMEN / Unknown 12/06/2024 10:08 AM CDT 12/06/2024 10:09 AM CDT Vikki Cardoza MD CHEMISTRY Final Result [facility] [address] [place] [address], [facility] ( [address] [place] [address] * (ABNORMAL) BASIC METABOLIC PANEL (12/06/2024 10:08 AM CDT) [facility] GLUCOSE 164(H) 65 - 99 mg/dL [facility] Comment: Fasting reference interval For someone without known diabetes, a glucose value >125 mg/dL indicates that they may have diabetes and this should be confirmed with a follow-up test. UREA NITROGEN (BUN) 24 7 - 25 mg/dL [facility] CREATININE 0.97(H) 0.60 - 0.95 mg/dL [facility] EGFR 58(L) > OR = 60 mL/min/1.7 3m2 [facility] BUN/CREATININE RATIO 25(H) 6 - 22 (calc) [facility] SODIUM 135 135 - 146 mmol/L [facility] POTASSIUM 4.6 3.5 - 5.3 mmol/L [facility] CHLORIDE 99 98 - 110 mmol/L [facility] CARBON DIOXIDE 27 20 - 32 mmol/L [facility] ELECTROLYTE BALANCE 9 7 - 17 mmol/L (calc) [facility] CALCIUM 10.2 8.6 - 10.4 mg/dL [facility] Blood BLOOD SPECIMEN / Unknown 12/06/2024 10:08 AM CDT 12/06/2024 10:08 AM CDT Vikki Cardoza MD CHEMISTRY Final Result Performing Organization Address City/State/[facility] Co de Phone Number [facility] [address] [place] [address], [facility] [address] [place] [address] from Last 3 Months Insurance MEDICARE PART A HB ONLY [place] BLUE HB ONLY [employer] MEDICARE ADVANTAGE MR Advance Directives Documents on File Type Date Recorded Patient Insulation Professional Expl anation POLST 01/27/2024 Healthcare Directive 08/15/2016 017 Healthcare Directive 11/30/2013 1:21 PM [facility], 07/30/2004 * Full Code (Latest Code Status on File) Date Activated Date Inactivated Comments 05/09/2009 8:42 PM 05/12/2009 5:02 PM Care Teams Process Plant Operator Relationship Specialty Start Date End Date Vikki Cardoza MD [address] [place] [address] PCP - General 11/01/05
[2025-01-16 19:10] VITALS: BP 129/89; PULSE 71; RESP 18; TEMP 36.6; O2SAT 99; BMI 21.7
--- NOTE | 2025-01-16 19:47 | CRLHL7_ITS ---
For Patients: As a result of the Century Cures Act, medical imaging exams and procedure reports are released immediately into your electronic medical record. You may view this report before your referring provider. If you have questions, please contact your health care provider. INDICATION: Cough and weakness COMPARISON: 09/12/2024 chest radiograph TECHNIQUE: Frontal and lateral radiographic views of the chest. FINDINGS: No pneumothorax. No substantial pleural effusion. No definite focal pulmonary consolidation. Similar cardiomediastinal contours. Status post coronary artery stenting. Status post median sternotomy. There is calcified aortic atherosclerosis. There are osseous degenerative changes. Mild anterior vertebral body wedging most conspicuous in the midthoracic spine. Similar attenuated appearance of the left distal clavicle. Similar serpentine 2.5 centimeter calcification projecting over the right upper lung zone possibly representing the retained cuff from a venous catheter or other nonspecific soft tissue calcification. IMPRESSION: No acute thoracic findings. Dictated by Telly Acuna MD @ 01/16/2025 8:18:13 PM (Electronically Signed)
--- NOTE | 2025-01-16 19:47 | ED.WEAKNESS ---
HPI - Weakness General Date Seen: 01/16/25 Chief complaint: Weakness Stated complaint: Weakness Time Seen by Provider: 01/16/25 19:36 Source: patient and family Mode of arrival: wheelchair Limitations: no limitations History of Present Illness HPI Narrative: Patient is an 84-year-old female with history of kidney disease, CHF, COPD, diabetes presenting to the emergency department for weakness. Her daughter is with her she states that since she has been with the patient at 16:00 patient has been complaining of lower extremity weakness. Patient is usually able to get up and move around her apartment herself the patient states she was able to get up by herself this morning but since the daughter has been with her the patient has had weakness. She states she has some bilateral knee pain and her legs feel weak below the knees. Denies any hip pain. Denies any new back pain. Does have some chronic back issues but states nothing seems new with her back pain today. Denies any numbness of her extremities. Denies any saddle anesthesia. They needed to help the patient up with a to assist to get her into the shower. Patient has also been having a worsening cough. Her baseline that is not productive. Denies any chest pain or shortness of breath. Denies any dysuria, abdominal pain, fevers, chills, headache, vision changes, diarrhea, constipation. No other concerns noted at this time. Patient does have a history of lower extremity edema. She does have edema right now and her daughter states that is about average for her edema. Related Data Home Medications ?Medication ?Instructions ?Recorded ?Confirmed amiloride 5 mg tablet 5 mg PO DAILY 08/28/23 09/12/24 clonazepam 0.5 mg tablet 0.75 mg PO HS 08/28/23 09/12/24 glipizide 2.5 mg tablet, extended 2.5 mg PO DAILY 08/28/23 09/12/24 release 24 hr levetiracetam 250 mg tablet 750 mg PO BID 08/28/23 09/12/24 nitroglycerin 0.4 mg sublingual 0.4 mg sublingual Q5M PRN 08/28/23 09/12/24 tablet nystatin 100,000 unit/gram topical 1 applic topical BID PRN 08/28/23 09/12/24 powder (Nystop) omeprazole 20 mg capsule,delayed 20 mg PO BID 08/28/23 09/12/24 release rosuvastatin 20 mg tablet 20 mg PO QPM 08/28/23 09/12/24 lidocaine 5 % topical patch 1 patch topical DAILY 05/14/24 09/12/24 mirabegron 25 mg tablet,extended 25 mg PO DAILY 05/14/24 09/12/24 release 24 hr (Myrbetriq) sertraline 100 mg tablet 100 mg PO DAILY 05/15/24 09/12/24 aspirin 325 mg tablet 325 mg PO DAILY 09/12/24 09/12/24 ferrous gluconate 324 mg (38 mg 324 mg PO MOTH 09/12/24 09/12/24 iron) tablet fexofenadine 60 mg tablet (Aarti 60 mg PO QAM 09/12/24 09/12/24 Allergy) folic acid 400 mcg tablet 400 mcg PO DAILY 09/12/24 09/12/24 glucosamine sulf dipot 2 cap PO DAILY 09/12/24 09/12/24 chlr,msm,chond 550 mg-C 30 mg-nolan 1 mg capsule (Glucosamine Chondroitin) loperamide 2 mg tablet 2 mg PO Q1-2H PRN 09/12/24 09/12/24 lutein 20 mg-zeaxanthin 1 1 cap PO DAILY 09/12/24 09/12/24 mg-bilberry fruit extract 2.2 mg capsule magnesium glycinate 2,400 mg PO DAILY 09/12/24 09/12/24 Previous Rx's ?Medication ?Instructions ?Recorded albuterol sulfate 2.5 mg/0.5 mL 2.5 mg (0.5 mL) inhalation Q4H #30 09/14/24 solution for nebulization ea metoprolol succinate 50 mg 50 mg PO DAILY #30 tabs 09/14/24 tablet,extended release 24 hr Allergies Allergy/AdvReac Type Severity Reaction Status Date / Time codeine Allergy Intermediate Verified 01/16/25 19:11 Penicillins Allergy Intermediate Verified 01/16/25 19:11 Review of Systems Status of ROS: Reports: 10 or more systems reviewed and unremarkable except as noted in History and below [facility] Medical History Elevated troponin I level ?R79.89 - Other specified abnormal findings of blood chemistry (ICD-10) Periprosthetic fracture around internal prosthetic left hip joint ?M97.02XA - Periprosthetic fracture around internal prosthetic left hip joint, initial encounter (ICD-10) COPD (chronic obstructive pulmonary disease) ?J44.9 - Chronic obstructive pulmonary disease, unspecified (ICD-10) Stage 3a chronic kidney disease ?N18.31 - Chronic kidney disease, stage 3a (ICD-10) Purple toe syndrome of both feet ?I75.023 - Atheroembolism of bilateral lower extremities (ICD-10) Hyperlipidemia ?E78.5 - Hyperlipidemia, unspecified (ICD-10) Hypophosphatemia ?E83.39 - Other disorders of phosphorus metabolism (ICD-10) High calcium levels ?E83.52 - Hypercalcemia (ICD-10) Anxiety state ?F41.1 - Generalized anxiety disorder (ICD-10) Fibromyalgia muscle pain ?M79.7 - Fibromyalgia (ICD-10) Hypomagnesemia ?E83.42 - Hypomagnesemia (ICD-10) Vitamin D deficiency ?E55.9 - Vitamin D deficiency, unspecified (ICD-10) 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 (ICD-10) Degeneration of lumbar or lumbosacral intervertebral disc ?M51.379 - Other intervertebral disc degeneration, lumbosacral region without mention of lumbar back pain or lower extremity pain (ICD-10) Spinal stenosis, lumbar region without neurogenic claudication ?M48.061 - Spinal stenosis, lumbar region without neurogenic claudication (ICD-10) Major depressive disorder ?F32.9 - Major depressive disorder, single episode, unspecified (ICD-10) Rheumatoid arthritis ?M06.9 - Rheumatoid arthritis, unspecified (ICD-10) Myocardial infarction ?I21.9 - Acute myocardial infarction, unspecified (ICD-10) Muscle weakness ?M62.81 - Muscle weakness (generalized) (ICD-10) Fracture of clavicle ?S42.009A - Fracture of unspecified part of unspecified clavicle, initial encounter for closed fracture (ICD-10) Counseling regarding advanced directives (08/15/16) ?Z71.89 - Other specified counseling (ICD-10) Acute delirium ?R41.0 - Disorientation, unspecified (ICD-10) Acute confusion ?R41.0 - Disorientation, unspecified (ICD-10) Leukocytosis ?D72.829 - Elevated white blood cell count, unspecified (ICD-10) Seizure ?R56.9 - Unspecified convulsions (ICD-10) 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 - Hypomagnesemia (ICD-10) ?E87.6 - Hypokalemia (ICD-10) Hypertension ?I10 - Essential (primary) hypertension (ICD-10) 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 ?I25.810 - Atherosclerosis of coronary artery bypass graft(s) without angina pectoris (ICD-10) Type 2 diabetes mellitus ?E11.9 - Type 2 diabetes mellitus without complications (ICD-10) Closed fracture of left hip (08/29/23) ?S72.002A - Fracture of unspecified part of neck of left femur, initial encounter for closed fracture (ICD-10) Surgical History H/O: hysterectomy (~1985) ?Z90.710 - Acquired absence of both cervix and uterus (ICD-10) S/P CABG x 4 (~2000) ?Z95.1 - Presence of aortocoronary bypass graft (ICD-10) History of open reduction and internal fixation (ORIF) procedure (08/31/23) ?Z98.890 - Other specified postprocedural states (ICD-10) 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 Since coming home from rehab of L hip fracture in the spring, her daughter and son-in-law have been staying with her and getting the house ready to sell. They have plans to move her into [address] in [place] soon. H/o smoking 60 pack years, quit in 2000. Doesn't drink alcohol. DNR/DNI. What is your current living situation?: I presently have a place to live Problems where you live: no known problems Problems where you live details: NA In the past 12 months, utilities in danger of being shut off: no In past 12 months, lack of transportation kept you from medical appts, meetings, work, or getting things needed for daily living: no In the past 12 mos, have been you worried that your food would run out before you had money to buy more?: never true In the past 12 mos, the food you bought just didn't last and you didn't have money to buy more?: never true Are you following a special diet: Yes (minced and moist texture at home) Highest level of school completed/degree received: high school graduate Smoking Status: Never smoker Do you use any of these nicotine containing products: None Second hand tobacco smoke exposure: No How often do you have a drink containing alcohol: never How often do you have six or more drinks on one occasion: Never AUDIT-C Alcohol total score: 0 Non-prescribed substance use: denies use Caffeine: Yes How often does anyone, including family, friends and others, physically hurt you: never How often does anyone, including family, friends and others, insult or talk down to you: never How often does anyone, including family, friends and others, threaten you with harm: never How often does anyone, including family, friends and others, scream or curse at you: never service: No Exam Narrative: Exam Narrative: Const: Well-nourished, Well-developed, in mild distress Eyes: PERRL, no conjunctival injection, and symmetrical lids HENT: Atraumatic external nose and ears. Moist mucous membranes. Neck: Symmetric, trachea midline, No thyromegaly. CVS: RRR, No murmurs or gallops. Peripheral pulses 2+ and equal in all extremities. Plus two lower extremity pitting edema about [address] the lower leg. RESP: Unlabored respiratory effort. Clear to auscultation bilaterally. GI: Nontender/Nondistended, No rebound or guarding. MSK:Extremities w/o deformity, Normal Active ROM Skin: Warm, Dry. There is an abrasion to the left alegria with no surrounding erythema. Neuro: Normal Muscle tone, No focal neurological deficits. Psych: Awake, Alert, & Oriented x3. Appropriate mood and affect. Const: Vital Signs, click to edit/add: Vital Signs - 24 hr 01/16/25 19:10 01/16/25 21:28 Temperature 97.9 F Pulse Rate [Right Pulse Oximeter] 71 95 Respiratory Rate 18 20 Blood Pressure [Ri ght Upper Arm] 129/89 128/63 Pulse Oximetry 99 94 Oxygen Delivery Me thod Room Air Room Air Course Vital Signs Vital signs: Initial Vital Signs Temperature 97.9 F 01/16/25 19:10 Temperature Source Temporal Artery Scan 01/16/25 19:10 Pulse Rate 71 01/16/25 19:10 Respiratory Rate 18 01/16/25 19:10 Blood Pressure 129/89 01/16/25 19:10 Blood Pressure Mean 102 01/16/25 19:10 Blood Pressure Position Supine 01/16/25 19:10 Pulse Oximetry 99 01/16/25 19:10 Oxygen Delivery Method Room Air 01/16/25 19:10 Vital Signs Temperature 97.9 F 01/16/25 19:10 Pulse Rate 71 01/16/25 19:10 Respiratory Rate 18 01/16/25 19:10 Blood Pressure 129/89 01/16/25 19:10 Pulse Oximetry 99 01/16/25 19:10 Oxygen Delivery Method Room Air 01/16/25 19:10 Temperature 97.9 F 01/16/25 19:10 Pulse Rate 95 01/16/25 21:28 Respiratory Rate 20 01/16/25 21:28 Blood Pressure 128/63 01/16/25 21:28 Pulse Oximetry 94 01/16/25 21:28 Oxygen Delivery Method Room Air 01/16/25 21:28 MDM - Weakness MDM Narrative Medical decision making narrative: Patient is an 84-year-old female presenting to the emergency department for weakness. Weakness is only knee and down bilaterally. Is not having any numbness to lower extremities. She is neurovascular intact. Is not having any red flag symptoms for cauda equina. She is having a worsening cough so will do chest x-rays look for signs of pneumonia. Will also order a CBC, BMP, EKG, troponin, magnesium, urinalysis, viral swabs. Chest x-ray returned showing no acute concerning abnormalities. Lab work shows no acute concerning abnormalities. Sodiums at her baseline of 131. Urinalysis shows no signs of UTI. Viral swabs are negative. I did re-evaluate her lower extremity strength and she does appear to have normal strength at her hips and knees bilaterally. EKG was ordered right away but department was be seen was unable to be done until later. By that time patient just want to go home and refused EKG. On my review vital signs are stable throughout time in in the emergency department. Oximetry stayed in the mid to high 90s. insurance sales manager showed no concerning arrhythmias. She will follow-up outpatient. Her daughter states that her physical therapist is coming tomorrow and that they have increased the patient's amount of help at the assisted living for the time being. Lab Data Labs: Lab Results 01/16/25 01/16/25 01/16/25 Range/Units 19:15 19:40 20:15 WBC 5.85 (4.50-11.00) K/uL RBC 4.03 (4.00-5.20) m/uL Hgb 12.6 (12.0-16.0) gm/dL Hct 37.6 (33.0-51.0) % MCV 93 (80-100) fL MCH 31 (26-34) pg MCHC 34 (32-36) gm/dL RDW Coeff of Gilbert 12.3 (11.5-15.5) % Plt Count 152 (140-440) K/uL Neut % (Auto) 71.9 (42.0-72.0) % Lymph % (Auto) 16.1 L (20-44) % [place] % (Auto) 9.6 (0.0-11.0) % Eos % (Auto) 1.9 (0.0-7.0) % Baso % (Auto) 0.3 (0.0-3.0) % Neut # (Auto) 4.21 (1.7-7.0) K/uL Lymph # (Auto) 0.90 (0.90-2.90) K/uL [place] # (Auto) 0.60 (0.00-0.90) K/UL Eos # (Auto) 0.11 (0.00-0.50) K/uL Baso # (Auto) 0.02 (0.00-0.30) K/uL Abs Immat Gran (auto) 0.01 (0.00-0.30) K/uL Imm/Tot Granulo (auto) 0.2 % Sodium 131 L (135-149) mmol/L Potassium 4.4 (3.6-5.1) mmol/L Chloride 95 L (96-114) mmol/L Carbon Dioxide 28 (20-32) mmol/L Anion Gap 8 (7-15) mEq/L BUN 24 (7-30) mg/dL Creatinine 1.1 (0.5-1.5) mg/dL Estimated Creat Clear 28.73 Estimated GFR 50 ml/min Glucose 112 (60-115) mg/dL Calcium 10.0 (8.4-10.6) mg/dL Magnesium 1.7 (1.5-2.6) mg/dL Troponin I < 0.01 (0.01-0.04) ng/mL Urine Color Yellow (Yellow) Urine Appearance Clear (Clear) Urine pH 7.0 (5.0-8.5) Ur Specific [place] 1.015 (1.000-1.030) Urine Protein Negative (Negative) Urine Glucose (UA) Negative (Negative) Urine Ketones Negative (Negative) Urine Blood Negative (Negative) Urine Nitrite Negative (Negative) Urine Bilirubin Negative (Negative) Urine Urobilinogen 0.2 (0.2-1.0) Ur Leukocyte Esterase Negative (Negative) Urine RBC 0-2 (0-2) Urine WBC 0-2 (0-5) Ur Squamous Epith Cells None (None-Few) Urine Bacteria Few A (None) SARS-CoV-2 (PCR) Negative SARS-CoV-2 (Negative) Influenza Type A (PCR) Negative PCR FLU A (Negative) Influenza Type B (PCR) Negative PCR FLU B (Negative) RSV (PCR) Negative PCR RSV (Negative) Imaging Data Chest x-ray: Attestation: I have reviewed the pertinent imaging results. Radiologist's impression: No acute thoracic findings. Dictated by Telly Acuna MD @ 01/16/2025 8:18:13 PM Discharge Plan Discharge Clinical Impression: Bilateral leg weakness Patient Disposition: Home, Self-Care Condition: Stable Additional Instructions: I recommend close follow-up with her primary care provider if weakness continues. Return to emergency department for new or worsening symptoms. At this time her lab work and imaging is not showing any concerning abnormalities. Her sodium appears to be at its baseline. No signs of UTI or pneumonia. Prescriptions: No Action lidocaine 5 % adhesive patch,medicated 1 patch topical DAILY mirabegron [Myrbetriq] 25 mg tablet extended release 24 hr 25 mg PO DAILY sertraline 100 mg tablet 100 mg PO DAILY clonazepam 0.5 mg tablet 0.75 mg PO HS amiloride 5 mg tablet 5 mg PO DAILY levetiracetam 250 mg tablet 750 mg PO BID glipizide 2.5 mg tablet extended release 24hr 2.5 mg PO DAILY nitroglycerin 0.4 mg tablet, sublingual 0.4 mg sublingual Q5M PRN omeprazole 20 mg capsule,delayed release(DR/EC) 20 mg PO BID nystatin [Nystop] 100,000 unit/gram powder 1 applic topical BID PRN rosuvastatin 20 mg tablet 20 mg PO QPM aspirin 325 mg tablet 325 mg PO DAILY fexofenadine [Aarti Allergy] 60 mg tablet 60 mg PO QAM ferrous gluconate 324 mg (38 mg iron) tablet 324 mg PO MOTH folic acid 400 mcg tablet 400 mcg PO DAILY Glucosamine Chondroitin 550-30-1 mg capsule 2 cap PO DAILY loperamide 2 mg tablet 2 mg PO Q1-2H PRN Rx Instructions: administer after each loose stool until symptoms controlled; do not exceed 8 mg per 24 hrs nglidi-bdyfbibsty-djztdcjd ext 20-1-2.2 mg capsule 1 cap PO DAILY magnesium glycinate 100 mg magnesium capsule 2,400 mg PO DAILY Rx Instructions: non hospital supplement, patient take 6, 400 mg tabs daily albuterol sulfate 2.5 mg/0.5 mL solution for nebulization 2.5 mg inhalation Q4H Qty: 30 2RF Rx Instructions: for up to 3 doses metoprolol succinate 50 mg tablet extended release 24 hr 50 mg PO DAILY Qty: 30 2RF Follow Up/Referrals: Vikki Cope MD [Primary Care Provider, Family Practice] Stand Alone Forms: [employer] Info Instructions
[2025-01-16 19:52] LABS: Appearance Urine Clear (Clear)
[2025-01-16 20:02] LABS: PCR FLU A Negative PCR FLU A (Negative); PCR FLU B Negative PCR FLU B (Negative); PCR RSV Negative PCR RSV (Negative); SARS PCR* Negative SARS-CoV-2 (Negative)
[2025-01-16 20:22] LABS: Hematocrit 37.6 % (33.0-51.0); Hemoglobin* 12.6 gm/dL (12.0-16.0); Immature Granulocytes Abs Auto 0.01 K/uL (0.00-0.30); Immature Granulocytes Pct Auto 0.2 %; Mean Corpuscular HGB Conc 34 gm/dL (32-36); Mean Corpuscular Hemoglobin 31 pg (26-34); Mean Corpuscular Volume 93 fL (80-100); RDW Coefficient of Variation % 12.3 % (11.5-15.5); Red Blood Count 4.03 m/uL (4.00-5.20); White Blood Count* 5.85 K/uL (4.50-11.00)
[2025-01-16 20:26] LABS: Lymphocytes Absolute Auto 0.90 K/uL (0.90-2.90); Slide Review Reflex No
[2025-01-16 20:35] LABS: Chloride* 95 mmol/L (96-114); Potassium* 4.4 mmol/L (3.6-5.1); Sodium* 131 mmol/L (135-149)
[2025-01-16 20:38] LABS: Blood Urea Nitrogen* 24 mg/dL (7-30); Creatinine* 1.1 mg/dL (0.5-1.5); Est. Creatinine Clearance* 28.73; Estimated Glomerular Filt Rate 50 ml/min
[2025-01-16 20:39] LABS: Anion Gap 8 mEq/L (7-15); Calcium* 10.0 mg/dL (8.4-10.6); Carbon Dioxide* 28 mmol/L (20-32); Glucose* 112 mg/dL (60-115)
[2025-01-16 21:28] VITALS: BP 128/63; PULSE 95; RESP 20; O2SAT 94
[2025-01-16 22:30] VITALS: PULSE 95; RESP 20
--- NOTE | 2025-01-17 16:59 | ED.GENADULT ---
HPI - General Adult General Chief complaint: Weakness Stated complaint: Weakness Time Seen by Provider: 01/16/25 19:36 Source: patient and family Mode of arrival: wheelchair Limitations: no limitations History of Present Illness HPI narrative: Addendum to ER note from 01/16. Urine culture came back today growing greater than 100,000 colony-forming units of Gram-negative bacteria. Patient was seen yesterday for generalized weakness. Urinalysis was fairly normal. No definitive symptoms of UTI but on it preliminary culture, suspect this is probably E coli. Will put her on cephalexin 500 b.i.d. for 5 days. Will have to get further identification and sensitivity and potentially change antibiotics tomorrow based on further results from her culture. Related Data Home Medications ?Medication ?Instructions ?Recorded ?Confirmed amiloride 5 mg tablet 5 mg PO DAILY 08/28/23 09/12/24 clonazepam 0.5 mg tablet 0.75 mg PO HS 08/28/23 09/12/24 glipizide 2.5 mg tablet, extended 2.5 mg PO DAILY 08/28/23 09/12/24 release 24 hr levetiracetam 250 mg tablet 750 mg PO BID 08/28/23 09/12/24 nitroglycerin 0.4 mg sublingual 0.4 mg sublingual Q5M PRN 08/28/23 09/12/24 tablet nystatin 100,000 unit/gram topical 1 applic topical BID PRN 08/28/23 09/12/24 powder (Nystop) omeprazole 20 mg capsule,delayed 20 mg PO BID 08/28/23 09/12/24 release rosuvastatin 20 mg tablet 20 mg PO QPM 08/28/23 09/12/24 lidocaine 5 % topical patch 1 patch topical DAILY 05/14/24 09/12/24 mirabegron 25 mg tablet,extended 25 mg PO DAILY 05/14/24 09/12/24 release 24 hr (Myrbetriq) sertraline 100 mg tablet 100 mg PO DAILY 05/15/24 09/12/24 aspirin 325 mg tablet 325 mg PO DAILY 09/12/24 09/12/24 ferrous gluconate 324 mg (38 mg 324 mg PO MOTH 09/12/24 09/12/24 iron) tablet fexofenadine 60 mg tablet (Aarti 60 mg PO QAM 09/12/24 09/12/24 Allergy) folic acid 400 mcg tablet 400 mcg PO DAILY 09/12/24 09/12/24 glucosamine sulf dipot 2 cap PO DAILY 09/12/24 09/12/24 chlr,msm,chond 550 mg-C 30 mg-nolan 1 mg capsule (Glucosamine Chondroitin) loperamide 2 mg tablet 2 mg PO Q1-2H PRN 09/12/24 09/12/24 lutein 20 mg-zeaxanthin 1 1 cap PO DAILY 09/12/24 09/12/24 mg-bilberry fruit extract 2.2 mg capsule magnesium glycinate 2,400 mg PO DAILY 09/12/24 09/12/24 Previous Rx's ?Medication ?Instructions ?Recorded albuterol sulfate 2.5 mg/0.5 mL 2.5 mg (0.5 mL) inhalation Q4H #30 09/14/24 solution for nebulization ea metoprolol succinate 50 mg 50 mg PO DAILY #30 tabs 09/14/24 tablet,extended release 24 hr cephalexin 500 mg capsule 500 mg PO BID #10 caps 01/17/25 Allergies Allergy/AdvReac Type Severity Reaction Status Date / Time codeine Allergy Intermediate Verified 01/16/25 19:11 Penicillins Allergy Intermediate Verified 01/16/25 19:11 [facility] Medical History Elevated troponin I level ?R79.89 - Other specified abnormal findings of blood chemistry (ICD-10) Periprosthetic fracture around internal prosthetic left hip joint ?M97.02XA - Periprosthetic fracture around internal prosthetic left hip joint, initial encounter (ICD-10) COPD (chronic obstructive pulmonary disease) ?J44.9 - Chronic obstructive pulmonary disease, unspecified (ICD-10) Stage 3a chronic kidney disease ?N18.31 - Chronic kidney disease, stage 3a (ICD-10) Purple toe syndrome of both feet ?I75.023 - Atheroembolism of bilateral lower extremities (ICD-10) Hyperlipidemia ?E78.5 - Hyperlipidemia, unspecified (ICD-10) Hypophosphatemia ?E83.39 - Other disorders of phosphorus metabolism (ICD-10) High calcium levels ?E83.52 - Hypercalcemia (ICD-10) Anxiety state ?F41.1 - Generalized anxiety disorder (ICD-10) Fibromyalgia muscle pain ?M79.7 - Fibromyalgia (ICD-10) Hypomagnesemia ?E83.42 - Hypomagnesemia (ICD-10) Vitamin D deficiency ?E55.9 - Vitamin D deficiency, unspecified (ICD-10) 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 (ICD-10) Degeneration of lumbar or lumbosacral intervertebral disc ?M51.379 - Other intervertebral disc degeneration, lumbosacral region without mention of lumbar back pain or lower extremity pain (ICD-10) Spinal stenosis, lumbar region without neurogenic claudication ?M48.061 - Spinal stenosis, lumbar region without neurogenic claudication (ICD-10) Major depressive disorder ?F32.9 - Major depressive disorder, single episode, unspecified (ICD-10) Rheumatoid arthritis ?M06.9 - Rheumatoid arthritis, unspecified (ICD-10) Myocardial infarction ?I21.9 - Acute myocardial infarction, unspecified (ICD-10) Muscle weakness ?M62.81 - Muscle weakness (generalized) (ICD-10) Fracture of clavicle ?S42.009A - Fracture of unspecified part of unspecified clavicle, initial encounter for closed fracture (ICD-10) Counseling regarding advanced directives (08/15/16) ?Z71.89 - Other specified counseling (ICD-10) Acute delirium ?R41.0 - Disorientation, unspecified (ICD-10) Acute confusion ?R41.0 - Disorientation, unspecified (ICD-10) Leukocytosis ?D72.829 - Elevated white blood cell count, unspecified (ICD-10) Seizure ?R56.9 - Unspecified convulsions (ICD-10) 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 - Hypomagnesemia (ICD-10) ?E87.6 - Hypokalemia (ICD-10) Hypertension ?I10 - Essential (primary) hypertension (ICD-10) 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 ?I25.810 - Atherosclerosis of coronary artery bypass graft(s) without angina pectoris (ICD-10) Type 2 diabetes mellitus ?E11.9 - Type 2 diabetes mellitus without complications (ICD-10) Closed fracture of left hip (08/29/23) ?S72.002A - Fracture of unspecified part of neck of left femur, initial encounter for closed fracture (ICD-10) Surgical History H/O: hysterectomy (~1985) ?Z90.710 - Acquired absence of both cervix and uterus (ICD-10) S/P CABG x 4 (~2000) ?Z95.1 - Presence of aortocoronary bypass graft (ICD-10) History of open reduction and internal fixation (ORIF) procedure (08/31/23) ?Z98.890 - Other specified postprocedural states (ICD-10) 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 Since coming home from rehab of L hip fracture in the spring, her daughter and son-in-law have been staying with her and getting the house ready to sell. They have plans to move her into [place] in [place] soon. H/o smoking 60 pack years, quit in 2000. Doesn't drink alcohol. DNR/DNI. What is your current living situation?: I presently have a place to live Problems where you live: no known problems Problems where you live details: NA In the past 12 months, utilities in danger of being shut off: no In past 12 months, lack of transportation kept you from medical appts, meetings, work, or getting things needed for daily living: no In the past 12 mos, have been you worried that your food would run out before you had money to buy more?: never true In the past 12 mos, the food you bought just didn't last and you didn't have money to buy more?: never true Are you following a special diet: Yes (minced and moist texture at home) Highest level of school completed/degree received: high school graduate Smoking Status: Never smoker Do you use any of these nicotine containing products: None Second hand tobacco smoke exposure: No How often do you have a drink containing alcohol: never How often do you have six or more drinks on one occasion: Never AUDIT-C Alcohol total score: 0 Non-prescribed substance use: denies use Caffeine: Yes How often does anyone, including family, friends and others, physically hurt you: never How often does anyone, including family, friends and others, insult or talk down to you: never How often does anyone, including family, friends and others, threaten you with harm: never How often does anyone, including family, friends and others, scream or curse at you: never service: No Exam Const: Vital Signs, click to edit/add: Vital Signs - 24 hr 01/16/25 19:10 01/16/25 21:28 01/16/25 22:30 Temperature 97.9 F Pulse Rate [Pulse Oximeter] 95 Pulse Rate [Right Pulse Oximeter] 71 95 Respiratory Rate 18 20 20 Blood Pressure [Ri ght Upper Arm] 129/89 128/63 Pulse Oximetry 99 94 Oxygen Delivery Me thod Room Air Room Air Course Vital Signs Vital signs: Initial Vital Signs Temperature 97.9 F 01/16/25 19:10 Temperature Source Temporal Artery Scan 01/16/25 19:10 Pulse Rate 71 01/16/25 19:10 Respiratory Rate 18 01/16/25 19:10 Blood Pressure 129/89 01/16/25 19:10 Blood Pressure Mean 102 01/16/25 19:10 Blood Pressure Position Supine 01/16/25 19:10 Pulse Oximetry 99 01/16/25 19:10 Oxygen Delivery Method Room Air 01/16/25 19:10 Vital Signs Temperature 97.9 F 01/16/25 19:10 Pulse Rate 71 01/16/25 19:10 Respiratory Rate 18 01/16/25 19:10 Blood Pressure 129/89 01/16/25 19:10 Pulse Oximetry 99 01/16/25 19:10 Oxygen Delivery Method Room Air 01/16/25 19:10 Temperature 97.9 F 01/16/25 19:10 Pulse Rate 95 01/16/25 22:30 Respiratory Rate 20 01/16/25 22:30 Blood Pressure 128/63 01/16/25 21:28 Pulse Oximetry 94 01/16/25 21:28 Oxygen Delivery Method Room Air 01/16/25 21:28 Medical Decision Making Lab Data Labs: Lab Results 01/16/25 01/16/25 01/16/25 Range/Units 19:15 19:40 20:15 WBC 5.85 (4.50-11.00) K/uL RBC 4.03 (4.00-5.20) m/uL Hgb 12.6 (12.0-16.0) gm/dL Hct 37.6 (33.0-51.0) % MCV 93 (80-100) fL MCH 31 (26-34) pg MCHC 34 (32-36) gm/dL RDW Coeff of Gilbert 12.3 (11.5-15.5) % Plt Count 152 (140-440) K/uL Neut % (Auto) 71.9 (42.0-72.0) % Lymph % (Auto) 16.1 L (20-44) % Morrow % (Auto) 9.6 (0.0-11.0) % Eos % (Auto) 1.9 (0.0-7.0) % Baso % (Auto) 0.3 (0.0-3.0) % Neut # (Auto) 4.21 (1.7-7.0) K/uL Lymph # (Auto) 0.90 (0.90-2.90) K/uL Morrow # (Auto) 0.60 (0.00-0.90) K/UL Eos # (Auto) 0.11 (0.00-0.50) K/uL Baso # (Auto) 0.02 (0.00-0.30) K/uL Abs Immat Gran (auto) 0.01 (0.00-0.30) K/uL Imm/Tot Granulo (auto) 0.2 % Sodium 131 L (135-149) mmol/L Potassium 4.4 (3.6-5.1) mmol/L Chloride 95 L (96-114) mmol/L Carbon Dioxide 28 (20-32) mmol/L Anion Gap 8 (7-15) mEq/L BUN 24 (7-30) mg/dL Creatinine 1.1 (0.5-1.5) mg/dL Estimated Creat Clear 28.73 Estimated GFR 50 ml/min Glucose 112 (60-115) mg/dL Calcium 10.0 (8.4-10.6) mg/dL Magnesium 1.7 (1.5-2.6) mg/dL Troponin I < 0.01 (0.01-0.04) ng/mL Urine Color Yellow (Yellow) Urine Appearance Clear (Clear) Urine pH 7.0 (5.0-8.5) Ur Specific Tolley 1.015 (1.000-1.030) Urine Protein Negative (Negative) Urine Glucose (UA) Negative (Negative) Urine Ketones Negative (Negative) Urine Blood Negative (Negative) Urine Nitrite Negative (Negative) Urine Bilirubin Negative (Negative) Urine Urobilinogen 0.2 (0.2-1.0) Ur Leukocyte Esterase Negative (Negative) Urine RBC 0-2 (0-2) Urine WBC 0-2 (0-5) Ur Squamous Epith Cells None (None-Few) Urine Bacteria Few A (None) SARS-CoV-2 (PCR) Negative SARS-CoV-2 (Negative) Influenza Type A (PCR) Negative PCR FLU A (Negative) Influenza Type B (PCR) Negative PCR FLU B (Negative) RSV (PCR) Negative PCR RSV (Negative) Discharge Plan Discharge Clinical Impression: Bilateral leg weakness, Acute UTI Patient Disposition: Home, Self-Care Condition: Stable Additional Instructions: I recommend close follow-up with her primary care provider if weakness continues. Return to emergency department for new or worsening symptoms. At this time her lab work and imaging is not showing any concerning abnormalities. Her sodium appears to be at its baseline. No signs of UTI or pneumonia. Prescriptions: New cephalexin 500 mg capsule 500 mg PO BID Qty: 10 0RF No Action lidocaine 5 % adhesive patch,medicated 1 patch topical DAILY mirabegron [Myrbetriq] 25 mg tablet extended release 24 hr 25 mg PO DAILY sertraline 100 mg tablet 100 mg PO DAILY clonazepam 0.5 mg tablet 0.75 mg PO HS amiloride 5 mg tablet 5 mg PO DAILY levetiracetam 250 mg tablet 750 mg PO BID glipizide 2.5 mg tablet extended release 24hr 2.5 mg PO DAILY nitroglycerin 0.4 mg tablet, sublingual 0.4 mg sublingual Q5M PRN omeprazole 20 mg capsule,delayed release(DR/EC) 20 mg PO BID nystatin [Nystop] 100,000 unit/gram powder 1 applic topical BID PRN rosuvastatin 20 mg tablet 20 mg PO QPM aspirin 325 mg tablet 325 mg PO DAILY fexofenadine [Aarti Allergy] 60 mg tablet 60 mg PO QAM ferrous gluconate 324 mg (38 mg iron) tablet 324 mg PO MOTH folic acid 400 mcg tablet 400 mcg PO DAILY Glucosamine Chondroitin 550-30-1 mg capsule 2 cap PO DAILY loperamide 2 mg tablet 2 mg PO Q1-2H PRN Rx Instructions: administer after each loose stool until symptoms controlled; do not exceed 8 mg per 24 hrs uezgln-mbblpamyxt-vbylqnus ext 20-1-2.2 mg capsule 1 cap PO DAILY magnesium glycinate 100 mg magnesium capsule 2,400 mg PO DAILY Rx Instructions: non hospital supplement, patient take 6, 400 mg tabs daily albuterol sulfate 2.5 mg/0.5 mL solution for nebulization 2.5 mg inhalation Q4H Qty: 30 2RF Rx Instructions: for up to 3 doses metoprolol succinate 50 mg tablet extended release 24 hr 50 mg PO DAILY Qty: 30 2RF Follow Up/Referrals: Vikki Cope MD [Primary Care Provider, Family Practice] Stand Alone Forms: [employer] Info Instructions
== END 2025-01-16 22:34 | disposition home or self-care (01) ==
PROVIDERS: Family Medicine; Emergency Provider Student in an Organized Health Care Education/Training Program; PCP Family Medicine
DX: R53.1 Weakness (principal); B96.20 Unspecified Escherichia coli [E. coli] as the cause of diseases classified elsewhere
CPT/HCPCS: 36415; 71046; 80048; 81001; 83735; 84484; 85025; 87086; 87631; 99281; 99283; 99284